=== PATIENT | female | born 1935 | race African-American/Black ===

== ENCOUNTER 2016-02-26 10:39 | Inpatient (IN) | payer MEDICARE ==
[~2016-02-26] VITALS: Ht 162.6 cm; Wt 53.2 kg
[~2016-02-26 10:39] MED LIST: ANAS1TAB PO; CARV12.52 PO; CARV25TA2 PO; CARV6.25 PO; CARV6.252 PO; FURO-68 PO; FURO20TA3 PO; FURO40TA4 PO; GABA-586 PO; HYDR-2868 PO; HYDR-2869 PO; LOSA100T6 PO; NITR0.4T SL; NITR0.4T6 SL; POTA10TA5 PO; SIMV20TA3 PO; WARF2TAB7 PO; WARF5TAB7 PO
--- NOTE | 2016-02-26 10:59 | PHYS DOC ---
Past Medical History Past Medical History: Hypertension, Other Additional Past Medical Histor: heart hx Past Surgical History: Hysterectomy, Other Additional Past Surgical Histo: mastectomy Alcohol Use: None Drug Use: None Adult General Chief Complaint Chief Complaint: SHORTNESS OF BREATH HPI HPI Patient is a 80 year old female who presents with shortness of breath. Patient reports since last night she has had increased shortness of breath that is worse when she is moving around. It is bad enough that after walking short us and she has to rest. She also reports occasional tightness in her chest, over she is not having any of that at this time. She took an aspirin last night for her symptoms, none today. No other acute complaints. Review of Systems Review of Systems Constitutional: Denies fever or chills Eyes: Denies change in visual acuity or eye pain HENT: Denies nasal congestion or sore throat Respiratory: Shortness of breath Cardiovascular: Occasional chest tightness, none at this time GI: Denies abdominal pain, nausea, vomiting, bloody stools or diarrhea : Denies dysuria or hematuria Musculoskeletal: Denies back pain or joint pain Integument: Denies rash or skin lesions Neurologic: Denies headache, focal weakness or sensory changes Current Medications Current Medications Current Medications Medications (Trade) Dose Ordered Sig/Nicole Start Time Stop Time Status Last Admin Dose Admin Aspirin (Children'S Aspirin) 324 mg 1X ONCE 02/26/16 11:00 02/26/16 11:02 DC 02/26/16 11:18 324 MG Allergies Allergies Allergies Coded Allergies Type Severity Reaction Last Updated Verified No Known Drug Allergies 03/10/13 No Physical Exam Physical Exam Constitutional: Well developed, well nourished, no acute distress, non-toxic appearance HENT: Normocephalic, atraumatic, bilateral external ears normal Eyes: EOMI, conjunctiva normal, no discharge Neck: Normal range of motion, no stridor Cardiovascular: Tachycardic, regular rhythm, no murmur Lungs & Thorax: Coarse breath sounds in L upper lung kwong Abdomen: Bowel sounds normal, soft, non-distended, no TTP Skin: Warm, dry, no erythema, no rash Extremities: No obvious deformity, no edema Neurologic: Alert and oriented X 3, no gross deficits noted Current Patient Data Vital Signs Vital Signs Date Time Temp Pulse Resp B/P Pulse Ox O2 Delivery O2 Flow Rate FiO2 02/26/16 11:42 66 18 133/98 99 02/26/16 11:27 Room Air 02/26/16 10:45 97.4 97.4 Lab Values Laboratory Tests Test 02/26/16 11:11 White Blood Count 4.7x10^3/uL (4.0-11.0) Red Blood Count 4.02x10^6/uL (3.50-5.40) Hemoglobin 11.6g/dL (12.0-15.5) L Hematocrit 36.3% (36.0-47.0) Mean Corpuscular Volume 90fL (79-100) Mean Corpuscular Hemoglobin 29pg (25-35) Mean Corpuscular Hemoglobin Concent 32g/dL (31-37) Red Cell Distribution Width 14.6% (11.5-14.5) H Platelet Count 153x10^3/uL (140-400) Neutrophils (%) (Auto) 69% (31-73) Lymphocytes (%) (Auto) 20% (24-48) L Monocytes (%) (Auto) 9% (0-9) Eosinophils (%) (Auto) 1% (0-3) Basophils (%) (Auto) 1% (0-3) Neutrophils # (Auto) 3.3x10^3uL (1.8-7.7) Lymphocytes # (Auto) 0.9x10^3/uL (1.0-4.8) L Monocytes # (Auto) 0.4x10^3/uL (0.0-1.1) Eosinophils # (Auto) 0.1x10^3/uL (0.0-0.7) Basophils # (Auto) 0.0x10^3/uL (0.0-0.2) Prothrombin Time 32.6SEC (11.7-14.0) H Prothrombin Time INR 3.4 (0.8-1.1) H Sodium Level 144mmol/L (136-145) Potassium Level 3.1mmol/L (3.5-5.1) L Chloride Level 108mmol/L (98-107) H Carbon Dioxide Level 26mmol/L (21-32) Anion Gap 10 (6-14) Blood Urea Nitrogen 14mg/dL (7-20) Creatinine 0.9mg/dL (0.6-1.0) Estimated GFR (Cockcroft-Gault) 72.9 Glucose Level 117mg/dL (70-99) H Calcium Level 8.7mg/dL (8.5-10.1) Troponin I Quantitative 0.035ng/mL (0.000-0.055) ZL-Hkh-Q-Type Natriuretic Peptide 4214pg/mL (0-449) H Laboratory Tests 02/26/16 11:11 Laboratory Tests 02/26/16 11:11 EKG EKG EKG (my read): sinus rhythm, rate 69, LAD, single PVC noted, IVCD, nonspecific ST changes, similar to prior 03/06/15 Radiology/Procedures Radiology/Procedures CXR: IMPRESSION: Persistent cardiomegaly and suggested mild pulmonary vascular congestion. Volume loss in the left lower lobe suggesting pleural fluid and atelectasis similar to the previous exam Course & Med Decision Making Course & Med Decision Making Pertinent Labs and Imaging studies reviewed. (See chart for details) Patient is 80-year-old female who presents with cough. Concern for cardiac disease causing symptoms. Will obtain EKG, chest x-ray, labs to evaluate. Dose of aspirin ordered. EKG abnormal but similar to prior 03/06/15. CXR results as above. Labs notable for hypokalemia and elevated BNP. Discussed results with patient. Dose of Lasix and oral potassium replacement ordered. Discussed with Dr. Schumacher, will admit under her care for further evaluation and treatment. Cardiology consult entered. Dragon Disclaimer Dragon Disclaimer This electronic medical record was generated, in whole or in part, using a voice recognition dictation system. Departure Departure Impression: Primary Impression: SOB (shortness of breath) Additional Impression: CHF (congestive heart failure) Disposition: ADMITTED INPATIENT Admitting Physician: Other Condition: STABLE Referrals: CALOS VILLAGOMEZ (PCP) Problem Qualifiers JILLIAN REBOLLAR MD Feb 26, 2016 10:59
[2016-02-26] MEDS ORDERED: ASPIRIN 81 MG TAB.CHEW PO ONE (11:00)
[2016-02-26 11:24] LABS: BASO % 1 % (0-3); EOS % 1 % (0-3); HEMATOCRIT 36.3 % (36.0-47.0); HEMOGLOBIN 11.6 g/dL (12.0-15.5); LYMPH # 0.9 x10^3/uL (1.0-4.8); LYMPH % 20 % (24-48); MEAN CORPUSCULAR HEMOGLOBIN 29 pg (25-35); MEAN CORPUSCULAR HGB CONC 32 g/dL (31-37); MEAN CORPUSCULAR VOLUME 90 fL (79-100); MONO % 9 % (0-9); NEUT % 69 % (31-73); PLATELET COUNT 153 x10^3/uL (140-400); RED BLOOD COUNT 4.02 x10^6/uL (3.50-5.40); RED CELL DISTRIBUTION WIDTH 14.6 % (11.5-14.5); WHITE BLOOD COUNT 4.7 x10^3/uL (4.0-11.0)
[2016-02-26 11:32] LABS: INR 3.4 (0.8-1.1); PROTHROMBIN TIME PATIENT 32.6 SEC (11.7-14.0)
[2016-02-26 11:37] LABS: CALCIUM 8.7 mg/dL (8.5-10.1); CREATININE 0.9 mg/dL (0.6-1.0); GFR 72.9; POTASSIUM 3.1 mmol/L (3.5-5.1)
--- NOTE | 2016-02-26 11:53 | RAD ---
Indication shortness of breath. Chest pain. A single view of the chest was obtained and is compared to an examination almost one year earlier. There is unchanged cardiomegaly. There is some pulmonary vascular congestion similar to the previous exam. There is volume loss in the left lower lobe suggesting atelectasis and pleural fluid. Underlying pneumonia is not entirely excluded. The overall appearance of the chest is not changed substantially relative to the previous exam. IMPRESSION: Persistent cardiomegaly and suggested mild pulmonary vascular congestion. Volume loss in the left lower lobe suggesting pleural fluid and atelectasis similar to the previous exam
[2016-02-26] MEDS ORDERED: ASPI325T4 PO (11:56)
--- NOTE | 2016-02-26 12:00 | EKG ---
[facility] [address] [place] [address] Test Date: 2016-02-26 Test Time: 10:46:43 Pat Name: JUDITH MARIA Department: Room: Gender: F [place] Tier: : 1935 Requested By: JILLIAN REBOLLAR Order Number: [id number] Reading MD: Azucena Hodge Measurements Intervals [place] Rate: 69 P: 90 MT: 160 QRS: -57 QRSD: 138 T: 84 QT: 390 QTc: 419 Interpretive Statements SINUS RHYTHM VENTRICULAR PREMATURE COMPLEX(ES) ABNORMAL LEFT AXIS DEVIATION NON SPECIFIC INTRAVENTRICULAR BLOCK ABNORMAL ECG RI6.01 Compared to ECG 03/06/2015 06:20:51 No significant changes Electronically Signed On 02-27-2016 9:42:48 PRODUCE RUNNER by Azucena Hodge
[2016-02-26] MEDS ORDERED: ACETAMINOPHEN 325 MG TABLET. PO PRN (12:15)
[2016-02-26] MEDS ORDERED: MORPHINE SULFATE 2 MG/ML DISP.SYRIN. IV PRN (12:15)
[2016-02-26] MEDS ORDERED: POTASSIUM CHLORIDE 20 MEQ TABLET.ER. PO ONE ×2 (12:15→16:15)
[2016-02-26] MEDS ORDERED: FUROSEMIDE 20 MG/2 ML VIAL IVP ONE (12:15)
[2016-02-26] MEDS ORDERED: ONDANSETRON PF 4 MG/2 ML VIAL. IV PRN (12:15)
[2016-02-26 15:00] VITALS: BP 170/81
[2016-02-26 19:39] VITALS: BP 151/71
--- NOTE | 2016-02-26 20:58 | CARD ---
APPROVED REPORT EXAM: Two-dimensional and M-mode echocardiogram with Doppler and color Doppler. Other Information Quality : Excellent INDICATION Congestive Heart Failure 2D DIMENSIONS RVDd3.1 (2.9-3.5cm)Left Atrium(2D)4.1 (1.6-4.0cm) IVSd1.0 (0.7-1.1cm)Aortic Root(2D)2.4 (2.0-3.7cm) LVDd5.7 (3.9-5.9cm)LVOT Diameter2.0 (1.8-2.4cm) PWd1.0 (0.7-1.1cm)LVDs4.9 (2.5-4.0cm) FS (%) 14.0 %SV47.1 ml LVEF(%)29.4 (>50%) Aortic Valve AoV Peak Regulo.156.4cm/sAoV VTI31.0cm AO Peak GR.9.8mmHgAO Mean GR.7mmHg AI P 1/2 Fhtv070cm Mitral Valve MV E Edstryhu091.5cm/sMV E Peak Gr.177mmHg MV DECEL [id number] A Saolwxiw57.7cm/s MV [id number]/A Ratio2.1 MVA (PHT)4.54cm2 TDI E/Lateral E'25.0E/Medial E'34.0 Tricuspid Valve TR P. [id number]/sRAP [id number] TR Peak Gr.54aeWcDKGK08slSk LEFT VENTRICLE The left ventricle is normal size. There is normal left ventricular wall thickness. The Ejection Frac tion is 30-35%. There is global hypokinesis of the left ventricle. RIGHT VENTRICLE The right ventricle is normal size. The right ventricular systolic function is normal. ATRIA The left atrium is mildly dilated. The right atrium is mildly dilated. The interatrial septum is inta ct with no evidence for an atrial septal defect or patent foramen ovale as noted on 2-D or Doppler im aging. AORTIC VALVE The aortic valve is mildly thickened but opens well. Doppler and Color Flow revealed moderate aortic regurgitation. There is no significant aortic valvular stenosis. MITRAL VALVE The mitral valve is thickened but opens well. There is no evidence of mitral valve prolapse. There is no mitral valve stenosis. Doppler and Color-flow revealed moderate to severe mitral regurgitation. TRICUSPID VALVE The tricuspid valve is normal in structure and function. Doppler and Color Flow revealed severe tricu spid regurgitation. There is moderate-severe pulmonary hypertension. The PA pressure was estimated at 66 mmHg. There is no tricuspid valve stenosis. PULMONIC VALVE The pulmonary valve is normal in structure and function. Doppler and Color Flow revealed mild to mode rate pulmonic valvular regurgitation. There is no pulmonic valvular stenosis. GREAT VESSELS The aortic root is normal in size. The ascending aorta is normal in size. The IVC is normal in size a nd collapses >50% with inspiration. PERICARDIAL EFFUSION There is no evidence of significant pericardial effusion. Critical Notification Critical Value: No <Conclusion> There is normal left ventricular wall thickness. The Ejection Fraction is 30-35%. There is a Grade II diastolic dysfunction There is no evidence of significant pericardial effusion. There is no significant aortic valvular stenosis. The mitral valve leaflets are thickened. There is a moderate to severe payam regurgitation with an eccentric jet The left atrium is enlarged There is no aortic stenosis and a mild aortic regurgitation There is mild to moderate pulmonic regurgitation The right ventricle is of a normal size with normal systolic function Doppler and Color Flow revealed severe tricuspid regurgitation. There is moderate-severe pulmonary hypertension. The PA pressure was estimated at 66 mmHg. The right atrium is significantly enlarged IMPRESSION 1.No ischemic cardiomyopathy with an ejection fraction of 30-35%. 2. Grade II diastolic dysfunction 3. Severe mitral regurgitation with an eccentric jetr 4.Moderaye pulmonary hypertension.RVSP of 66 mm. Hg. 5. Biatrial enlargement 2.
[2016-02-26] MEDS ORDERED: POTASSIUM CHLORIDE 10 MEQ TABLET.ER. PO ONE (22:30)
[2016-02-26 23:29] VITALS: BP 152/93
[2016-02-26] MEDS: ALBUTEROL SULFATE 2.5 MG/3 ML NEBU. NEB PRN (23:49)
[2016-02-27 02:26] VITALS: BP 155/97
[2016-02-27 04:49] LABS: INR 3.3 (0.8-1.1); PROTHROMBIN TIME PATIENT 31.4 SEC (11.7-14.0)
[2016-02-27 05:12] LABS: CALCIUM 8.5 mg/dL (8.5-10.1); CREATININE 0.8 mg/dL (0.6-1.0); GFR 83.5; MAGNESIUM 2.1 mg/dL (1.8-2.4); POTASSIUM 4.4 mmol/L (3.5-5.1)
[2016-02-27] MEDS: GABAPENTIN 300 MG CAPSULE. PO SCH ×2 (06:09→18:32)
[2016-02-27] MEDS: HYDRALAZINE 50 MG TABLET PO SCH ×2 (06:10→18:33)
[2016-02-27 07:00] VITALS: BP 150/87
[2016-02-27] MEDS: ALBUTEROL SULFATE 2.5 MG/3 ML NEBU. NEB PRN (08:09)
[2016-02-27] MEDS ORDERED: LOSARTAN POTASSIUM 25 MG TABLET. PO SCH (09:00)
[2016-02-27] MEDS ORDERED: POTASSIUM CHLORIDE 10 MEQ TABLET.ER. PO SCH (09:00)
[2016-02-27] MEDS: CARVEDILOL 6.25 MG TABLET PO SCH ×2 (10:13→18:33)
[2016-02-27] MEDS: PANTOPRAZOLE 40 MG TABLET. PO SCH (10:14)
[2016-02-27] MEDS: SPIRONOLACTONE 25 MG TABLET PO SCH ×2 (10:14→15:19)
[2016-02-27] MEDS: FUROSEMIDE 40 MG/4 ML VIAL IVP SCH ×2 (10:15→15:20)
--- NOTE | 2016-02-27 10:37 | PDOC ---
Provider Note Provider Note Consult dictated last night, not yet transcibed MYRA CURTIS MD Feb 27, 2016 10:37
[2016-02-27 10:53] VITALS: BP 136/80
--- NOTE | 2016-02-27 10:59 | CONS ---
DATE OF CONSULTATION: HISTORY OF PRESENT ILLNESS: This is an 80-year-old black female who presented herself early this morning with shortness of breath. She said that she was feeling fairly well when she went to bed. However, she woke up at 2:00 a.m. and could hardly breathe. She sleeps fairly flat in the bed rather than having 2 pillows. She also had a cough. She came into the Emergency Room. In the Emergency Room, she was found to be in mild CHF. She was given IV Lasix and hospitalized. Since IV Lasix, she has been diuresing a lot and does feel better now. I have followed this patient for some years. She does have a cardiomyopathy. Her last EF was evaluated by an echocardiogram and was shown to be 35%. The EF by MPI was also 35%. The EF by catheterization was 20%, but I believe that is falsely low because it is 2 dimensional and not 3 dimensional like the echo and the MPI. On reviewing these modalities, I believe that her EF is truly 30-35%. She does have moderately severe mitral regurgitation, which she has had for a long time. She has been in CHF before. She says that she has been not compliant with her salt intake and just because it tastes better she has been eating more salt recently. She lost her a year or two ago and has been quite depressed. She gives history of hypertension, which has been under control. There is no history of diabetes mellitus. There is no history of myocardial infarction or of a stroke. She has dyslipidemia. She has GERD. She gives history of having had breast cancer. Two years ago, she came in with severe shortness of breath and to our surprise was found to have a pulmonary embolism. She was seen by Dr. Prince who thought that she did not have a hypercoagulable state. She has had intermittent atrial fibrillation in the past and thus she is on chronic anticoagulation. PRESENT MEDICATIONS: 1. PPI. 2. Lasix 40 mg a day. 3. KCl 10 mEq a day. 4. Hydralazine 50 mg twice a day. 5. Simvastatin 20 mg a day. 6. Carvedilol 6.25 mg twice a day. 7. Gabapentin 300 mg twice a day. 8. Losartan. She was given a trial of Entresto, but she could not tolerate it. PHYSICAL EXAMINATION: GENERAL: She was able to lie flat. She was feeling much better. VITAL SIGNS: The heart rate was 80 per minute and she is in a sinus rhythm. There were premature ventricular contractions. The blood pressure was 150/70. She has not had her antihypertensive drugs today. LUNGS: Clear. HEART: The heart sounds are normal. There is a grade 3/6 systolic murmur heard at the apex. There is no S3 or S4. ABDOMEN: Soft. EXTREMITIES: The left thigh was much larger than the right side. She says it has been that way for 10 years and her PCP rightly told her that if it did not bother her, then there was no point in investigating this further. 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 There is no edema of the legs. There is no calf tenderness. Distal pulses are palpable. LABORATORY DATA: A chest x-ray showed cardiomegaly. There was mild increase in pulmonary vascularity. An echocardiogram showed global hypokinesis with ejection fraction of 30-35%. There is a grade 2 diastolic dysfunction. There was kwjcpekb-[id number]-ismxpr mitral regurgitation and interestingly this was an eccentric jet and not a central jet as one would have expected from a poor EF. The left atrium and right atrium are significantly enlarged. There is mild aortic regurgitation. There is moderate pulmonary hypertension with right ventricular systolic pressure of 66 mmHg and moderate pulmonic regurgitation. ASSESSMENT AND PLAN: She has a significantly abnormal echocardiogram. I believe her current exacerbation of congestive heart failure is due to noncompliance with salt intake. She does have a moderately severe mitral regurgitation and because the jet is eccentric one might consider clipping. The mitral valve leaflets are thickened. Also, this patient is 80 years old and somewhat sedentary and since her CHF is normally well controlled with medications, I probably would not consider referring her for mitral valve clipping. She is on the appropriate medications with ARB and beta adriana. She could not tolerate Entresto. We would need to make sure that she weighs herself and takes extra Lasix if necessary. She likes her salt and I probably would advise her to cut down on the salt, but not come down to hard on her. We could probably compromise by simply increasing the dose of Lasix. Thank you for asking me to see her. MYRA CURTIS MD DR: CONCHA/meg JOB#: [id number] / [id number]
[2016-02-27] MEDS ORDERED: NITROGLYCERIN SUBLINGUAL 0.4 MG BOTTLE OF 25. SL PRN (12:45)
[2016-02-27] MEDS ORDERED: GABAPENTIN 300 MG CAPSULE. PO SCH (13:00)
--- NOTE | 2016-02-27 14:25 | PDOC1 ---
History and Physical Date of Admission Date of Admission 02/26/16 Identification/Chief Complaint Chief Complaint sob Problems: Source Source: Chart review, Patient History of Present Illness History of Present Illness HPI HPI Patient is a 80 year old female who presents with shortness of breath yesterday. She has known CHF , last EF was 40%. She said she is compliant with meds , lasix , however, not avoid salt. She denies cough, sputum, fever, chills, leg edema. Sob better with lasix iv overnight. no home o2. Past Medical History Cardiovascular: AFIB Pulmonary: Pulmonary embolus, Pneumonia Heme/Onc: Cancer Past Surgical History Past Surgical History: Mastectomy Social History Smoke: No ALCOHOL: none Drugs: None Current Problem List Problem List Problems Medical Problems: (1) CHF (congestive heart failure) Status: Acute (2) SOB (shortness of breath) Status: Acute Current Medications Current Medications Current Medications Medications (Trade) Dose Ordered Sig/Nicole Start Time Stop Time Status Last Admin Dose Admin Acetaminophen (Tylenol) 650 mg PRN Q4HRS PRN 02/26/16 12:15 02/27/16 12:14 DC Albuterol Sulfate (Ventolin Neb Soln) 2.5 mg PRN Q4HRS PRN 02/26/16 23:30 02/27/16 08:09 2.5 MG Anastrozole (Arimidex) 1 mg DAILY 02/27/16 13:00 Aspirin (Deisy Aspirin) 325 mg DAILY 02/27/16 13:00 Aspirin (Children'S Aspirin) 324 mg 1X ONCE 02/26/16 11:00 02/26/16 11:02 DC 02/26/16 11:18 324 MG Carvedilol (Coreg) 6.25 mg [id number] 02/27/16 08:00 02/27/16 10:13 6.25 MG Furosemide (Lasix) 40 mg BID92 02/27/16 09:00 02/27/16 10:15 40 MG Gabapentin (Neurontin) 300 mg BID 02/27/16 13:00 02/27/16 21:00 Cancel Hydralazine HCl (Apresoline) 50 mg BID 02/27/16 21:00 02/27/16 21:00 DC Losartan Potassium (Cozaar) 100 mg DAILY 02/28/16 09:00 Morphine Sulfate 2 mg PRN Q2HR PRN 02/26/16 12:15 02/27/16 12:14 DC Nitroglycerin (Nitrostat) 0.4 mg PRN Q5MIN PRN 02/27/16 12:45 Ondansetron HCl (Zofran) 4 mg PRN Q8HRS PRN 02/26/16 12:15 02/27/16 12:14 DC Pantoprazole Sodium (Protonix) 40 mg DAILYAC 02/27/16 07:30 02/27/16 10:14 40 MG Potassium Chloride (Klor-Con) 10 meq [id number] 02/28/16 08:00 Simvastatin (Zocor) 20 mg QHS 02/27/16 21:00 02/27/16 21:00 DC Spironolactone (Aldactone) 25 mg BID92 02/27/16 09:00 02/27/16 10:14 25 MG Warfarin Sodium (Coumadin Per Physician) 1 each PRN DAILY PRN 02/27/16 13:00 Warfarin Sodium (Coumadin) 5 mg DAILY16 02/28/16 16:00 Allergies Allergies Allergies Coded Allergies Type Severity Reaction Last Updated Verified No Known Drug Allergies 03/10/13 No ROS Review of System CONSTITUTIONAL: No fever or chills EYES: No recent changes SKIN: No rash or itching CARDIOVASCULAR: No chest pain, syncope, palpitations, or edema RESPIRATORY: No SOB or cough GASTROINTESTINAL: No nausea, vomiting or abdominal pain NEUROLOGICAL: No headaches or weakness ENDOCRINE: No cold or heat intolerance GENITOURINARY: No urgency or frequency of urination MUSCULOSKELETAL: No back pain or joint pain LYMPHATICS: No enlarged lymph nodes PSYCHIATRIC: No anxiety or depression Physical Exam Physical Exam GEN.: No apparent distress. Alert and oriented. HEENT: Head is normocephalic, atraumatic NECK: Supple. LUNGS: Clear to auscultation. HEART: RRR, S1, S2 present. Peripheral pulses intact ABDOMEN: Soft, nontender. Positive bowel sounds. EXTREMITIES: Without any cyanosis. NEUROLOGIC: Normal speech, normal tone PSYCHIATRIC: Normal affect, normal mood. SKIN: No ulcerations Vitals Vitals Vital Signs Date Time Temp Pulse Resp B/P Pulse Ox O2 Delivery O2 Flow Rate FiO2 02/27/16 10:53 98.2 105 16 136/80 98 98.2 02/27/16 08:11 Room Air Labs Labs Laboratory Tests Test 02/26/16 11:11 02/26/16 18:20 02/27/16 00:30 02/27/16 03:52 White Blood Count 4.7x10^3/uL (4.0-11.0) Red Blood Count 4.02x10^6/uL (3.50-5.40) Hemoglobin 11.6g/dL (12.0-15.5) Hematocrit 36.3% (36.0-47.0) Mean Corpuscular Volume 90fL (79-100) Mean Corpuscular Hemoglobin 29pg (25-35) Mean Corpuscular Hemoglobin Concent 32g/dL (31-37) Red Cell Distribution Width 14.6% (11.5-14.5) Platelet Count 153x10^3/uL (140-400) Neutrophils (%) (Auto) 69% (31-73) Lymphocytes (%) (Auto) 20% (24-48) Monocytes (%) (Auto) 9% (0-9) Eosinophils (%) (Auto) 1% (0-3) Basophils (%) (Auto) 1% (0-3) Neutrophils # (Auto) 3.3x10^3uL (1.8-7.7) Lymphocytes # (Auto) 0.9x10^3/uL (1.0-4.8) Monocytes # (Auto) 0.4x10^3/uL (0.0-1.1) Eosinophils # (Auto) 0.1x10^3/uL (0.0-0.7) Basophils # (Auto) 0.0x10^3/uL (0.0-0.2) Prothrombin Time 32.6SEC (11.7-14.0) 31.4SEC (11.7-14.0) Prothromb Time International Ratio 3.4 (0.8-1.1) 3.3 (0.8-1.1) Sodium Level 144mmol/L (136-145) 145mmol/L (136-145) Potassium Level 3.1mmol/L (3.5-5.1) 4.4mmol/L (3.5-5.1) Chloride Level 108mmol/L (98-107) 110mmol/L (98-107) Carbon Dioxide Level 26mmol/L (21-32) 25mmol/L (21-32) Anion Gap 10 (6-14) 10 (6-14) Blood Urea Nitrogen 14mg/dL (7-20) 13mg/dL (7-20) Creatinine 0.9mg/dL (0.6-1.0) 0.8mg/dL (0.6-1.0) Estimated GFR (Cockcroft-Gault) 72.9 83.5 Glucose Level 117mg/dL (70-99) 100mg/dL (70-99) Calcium Level 8.7mg/dL (8.5-10.1) 8.5mg/dL (8.5-10.1) Troponin I Quantitative 0.035ng/mL (0.000-0.055) 0.041ng/mL (0.000-0.055) 0.044ng/mL (0.000-0.055) AL-Kmz-X-Type Natriuretic Peptide 4214pg/mL (0-449) Magnesium Level 2.1mg/dL (1.8-2.4) Laboratory Tests Test 02/26/16 18:20 02/27/16 00:30 02/27/16 03:52 Troponin I Quantitative 0.041ng/mL (0.000-0.055) 0.044ng/mL (0.000-0.055) Prothrombin Time 31.4SEC (11.7-14.0) Prothromb Time International Ratio 3.3 (0.8-1.1) Sodium Level 145mmol/L (136-145) Potassium Level 4.4mmol/L (3.5-5.1) Chloride Level 110mmol/L (98-107) Carbon Dioxide Level 25mmol/L (21-32) Anion Gap 10 (6-14) Blood Urea Nitrogen 13mg/dL (7-20) Creatinine 0.8mg/dL (0.6-1.0) Estimated GFR (Cockcroft-Gault) 83.5 Glucose Level 100mg/dL (70-99) Calcium Level 8.5mg/dL (8.5-10.1) Magnesium Level 2.1mg/dL (1.8-2.4) VTE Prophylaxis Ordered VTE Prophylaxis Devices: No VTE Pharmacological Prophylaxi: No Assessment/Plan Assessment/Plan 1. acute resp failure with CHF 2. acute systolic CHF exacerbation 3. chronic Afib on coumadin 4. h/o PE 5. HTN plan: 1. cont home meds, on coreg 6.25mg bid, if still tachy, may increase 2. fu with card on lasix 40mg iv bid now 3. monitor k, mag 4. cont coumadin, inr daily hope to dc in 1-2 ds KEHINDE NUNEZ MD Feb 27, 2016 14:25
[2016-02-27] MEDS ORDERED: ONDANSETRON PF 4 MG/2 ML VIAL. IV PRN (14:30)
[2016-02-27] MEDS ORDERED: ACETAMINOPHEN 325 MG TABLET. PO PRN (14:30)
[2016-02-27 15:00] VITALS: BP 117/57
[2016-02-27] MEDS: ASPIRIN 325 MG TABLET PO SCH (15:19)
[2016-02-27] MEDS: ANASTROZOLE 1 MG TABLET PO SCH (15:26)
[2016-02-27 20:31] VITALS: BP 109/53
[2016-02-27] MEDS: SIMVASTATIN 20 MG TABLET PO SCH (20:33)
[2016-02-27] MEDS ORDERED: SIMVASTATIN 20 MG TABLET PO SCH (21:00)
[2016-02-27] MEDS ORDERED: HYDRALAZINE 50 MG TABLET PO SCH (21:00)
[2016-02-27 23:23] VITALS: BP 121/71
[2016-02-28 03:22] VITALS: BP 130/64
[2016-02-28 03:42] LABS: BASO % 1 % (0-3); EOS % 2 % (0-3); HEMATOCRIT 36.9 % (36.0-47.0); LYMPH # 1.4 x10^3/uL (1.0-4.8); LYMPH % 26 % (24-48); MEAN CORPUSCULAR HEMOGLOBIN 29 pg (25-35); MEAN CORPUSCULAR HGB CONC 32 g/dL (31-37); MEAN CORPUSCULAR VOLUME 90 fL (79-100); MONO % 9 % (0-9); NEUT % 63 % (31-73); PLATELET COUNT 174 x10^3/uL (140-400); RED BLOOD COUNT 4.08 x10^6/uL (3.50-5.40); RED CELL DISTRIBUTION WIDTH 14.7 % (11.5-14.5); WHITE BLOOD COUNT 5.3 x10^3/uL (4.0-11.0)
[2016-02-28 04:01] LABS: CALCIUM 8.6 mg/dL (8.5-10.1); CREATININE 1.2 mg/dL (0.6-1.0); GFR 52.3; POTASSIUM 4.1 mmol/L (3.5-5.1)
[2016-02-28 04:13] LABS: INR 2.3 (0.8-1.1); PROTHROMBIN TIME PATIENT 23.6 SEC (11.7-14.0)
[2016-02-28] MEDS: HYDRALAZINE 50 MG TABLET PO SCH ×2 (06:08→18:16)
[2016-02-28] MEDS: GABAPENTIN 300 MG CAPSULE. PO SCH ×2 (06:08→18:16)
[2016-02-28 06:28] VITALS: BP 125/74
[2016-02-28] MEDS: PANTOPRAZOLE 40 MG TABLET. PO SCH (08:47)
[2016-02-28] MEDS: CARVEDILOL 6.25 MG TABLET PO SCH ×2 (08:47→16:48)
[2016-02-28] MEDS: SPIRONOLACTONE 25 MG TABLET PO SCH ×2 (08:47→15:18)
[2016-02-28] MEDS: LOSARTAN POTASSIUM 50 MG TABLET. PO SCH (08:47)
[2016-02-28] MEDS: POTASSIUM CHLORIDE 10 MEQ TABLET.ER. PO SCH (08:47)
[2016-02-28] MEDS: ANASTROZOLE 1 MG TABLET PO SCH (08:48)
[2016-02-28] MEDS: ASPIRIN 325 MG TABLET PO SCH (08:48)
[2016-02-28] MEDS: FUROSEMIDE 40 MG/4 ML VIAL IVP SCH (08:49)
[2016-02-28 11:00] VITALS: BP 109/59
--- NOTE | 2016-02-28 13:35 | PDOC ---
PROGRESS NOTES Chief Complaint Chief Complaint 1. acute resp failure with CHF 2. acute systolic CHF exacerbation 3. chronic Afib on coumadin 4. h/o PE 5. HTN 6. WINNIE, vasomotor plan: 1. cont home meds, on coreg 6.25mg bid, if still tachy, may increase 2. fu with card dc lasix 40mg iv bid, resume 40mg po daily from tmr 3. monitor k, mag 4. cont coumadin, inr daily will hold losartan if Cr cont higher hope to dc tmr History of Present Illness History of Present Illness no sob high Cr Vitals Vitals Vital Signs Date Time Temp Pulse Resp B/P Pulse Ox O2 Delivery O2 Flow Rate FiO2 02/28/16 11:00 97.5 74 18 109/59 95 Room Air 97.5 Physical Exam General: Alert, Oriented X3, Cooperative Heart: Regular rate, Normal S1 Lungs: Crackles (right basilar mild) Abdomen: Normal bowel sounds, Soft Extremities: No clubbing, No cyanosis Skin: No rashes Labs LABS Laboratory Tests Test 02/28/16 02:55 White Blood Count 5.3x10^3/uL (4.0-11.0) Red Blood Count 4.08x10^6/uL (3.50-5.40) Hemoglobin 12.0g/dL (12.0-15.5) Hematocrit 36.9% (36.0-47.0) Mean Corpuscular Volume 90fL (79-100) Mean Corpuscular Hemoglobin 29pg (25-35) Mean Corpuscular Hemoglobin Concent 32g/dL (31-37) Red Cell Distribution Width 14.7% (11.5-14.5) Platelet Count 174x10^3/uL (140-400) Neutrophils (%) (Auto) 63% (31-73) Lymphocytes (%) (Auto) 26% (24-48) Monocytes (%) (Auto) 9% (0-9) Eosinophils (%) (Auto) 2% (0-3) Basophils (%) (Auto) 1% (0-3) Neutrophils # (Auto) 3.4x10^3uL (1.8-7.7) Lymphocytes # (Auto) 1.4x10^3/uL (1.0-4.8) Monocytes # (Auto) 0.5x10^3/uL (0.0-1.1) Eosinophils # (Auto) 0.1x10^3/uL (0.0-0.7) Basophils # (Auto) 0.0x10^3/uL (0.0-0.2) Prothrombin Time 23.6SEC (11.7-14.0) Prothromb Time International Ratio 2.3 (0.8-1.1) Sodium Level 147mmol/L (136-145) Potassium Level 4.1mmol/L (3.5-5.1) Chloride Level 111mmol/L (98-107) Carbon Dioxide Level 28mmol/L (21-32) Anion Gap 8 (6-14) Blood Urea Nitrogen 18mg/dL (7-20) Creatinine 1.2mg/dL (0.6-1.0) Estimated GFR (Cockcroft-Gault) 52.3 Glucose Level 93mg/dL (70-99) Calcium Level 8.6mg/dL (8.5-10.1) Magnesium Level 2.1mg/dL (1.8-2.4) Review of Systems Review of Systems no fever, chills, sob, chest pain Assessment and Plan Assessmemt and Plan Problems Medical Problems: (1) CHF (congestive heart failure) Status: Acute (2) SOB (shortness of breath) Status: Acute Problems: Comment Review of Relevant I have reviewed the following items bhanu (where applicable) has been applied. Labs Laboratory Tests Test 02/26/16 18:20 02/27/16 00:30 02/27/16 03:52 02/28/16 02:55 Troponin I Quantitative 0.041ng/mL (0.000-0.055) 0.044ng/mL (0.000-0.055) Prothrombin Time 31.4SEC (11.7-14.0) 23.6SEC (11.7-14.0) Prothromb Time International Ratio 3.3 (0.8-1.1) 2.3 (0.8-1.1) Sodium Level 145mmol/L (136-145) 147mmol/L (136-145) Potassium Level 4.4mmol/L (3.5-5.1) 4.1mmol/L (3.5-5.1) Chloride Level 110mmol/L (98-107) 111mmol/L (98-107) Carbon Dioxide Level 25mmol/L (21-32) 28mmol/L (21-32) Anion Gap 10 (6-14) 8 (6-14) Blood Urea Nitrogen 13mg/dL (7-20) 18mg/dL (7-20) Creatinine 0.8mg/dL (0.6-1.0) 1.2mg/dL (0.6-1.0) Estimated GFR (Cockcroft-Gault) 83.5 52.3 Glucose Level 100mg/dL (70-99) 93mg/dL (70-99) Calcium Level 8.5mg/dL (8.5-10.1) 8.6mg/dL (8.5-10.1) Magnesium Level 2.1mg/dL (1.8-2.4) 2.1mg/dL (1.8-2.4) White Blood Count 5.3x10^3/uL (4.0-11.0) Red Blood Count 4.08x10^6/uL (3.50-5.40) Hemoglobin 12.0g/dL (12.0-15.5) Hematocrit 36.9% (36.0-47.0) Mean Corpuscular Volume 90fL (79-100) Mean Corpuscular Hemoglobin 29pg (25-35) Mean Corpuscular Hemoglobin Concent 32g/dL (31-37) Red Cell Distribution Width 14.7% (11.5-14.5) Platelet Count 174x10^3/uL (140-400) Neutrophils (%) (Auto) 63% (31-73) Lymphocytes (%) (Auto) 26% (24-48) Monocytes (%) (Auto) 9% (0-9) Eosinophils (%) (Auto) 2% (0-3) Basophils (%) (Auto) 1% (0-3) Neutrophils # (Auto) 3.4x10^3uL (1.8-7.7) Lymphocytes # (Auto) 1.4x10^3/uL (1.0-4.8) Monocytes # (Auto) 0.5x10^3/uL (0.0-1.1) Eosinophils # (Auto) 0.1x10^3/uL (0.0-0.7) Basophils # (Auto) 0.0x10^3/uL (0.0-0.2) Laboratory Tests Test 02/28/16 02:55 White Blood Count 5.3x10^3/uL (4.0-11.0) Red Blood Count 4.08x10^6/uL (3.50-5.40) Hemoglobin 12.0g/dL (12.0-15.5) Hematocrit 36.9% (36.0-47.0) Mean Corpuscular Volume 90fL (79-100) Mean Corpuscular Hemoglobin 29pg (25-35) Mean Corpuscular Hemoglobin Concent 32g/dL (31-37) Red Cell Distribution Width 14.7% (11.5-14.5) Platelet Count 174x10^3/uL (140-400) Neutrophils (%) (Auto) 63% (31-73) Lymphocytes (%) (Auto) 26% (24-48) Monocytes (%) (Auto) 9% (0-9) Eosinophils (%) (Auto) 2% (0-3) Basophils (%) (Auto) 1% (0-3) Neutrophils # (Auto) 3.4x10^3uL (1.8-7.7) Lymphocytes # (Auto) 1.4x10^3/uL (1.0-4.8) Monocytes # (Auto) 0.5x10^3/uL (0.0-1.1) Eosinophils # (Auto) 0.1x10^3/uL (0.0-0.7) Basophils # (Auto) 0.0x10^3/uL (0.0-0.2) Prothrombin Time 23.6SEC (11.7-14.0) Prothromb Time International Ratio 2.3 (0.8-1.1) Sodium Level 147mmol/L (136-145) Potassium Level 4.1mmol/L (3.5-5.1) Chloride Level 111mmol/L (98-107) Carbon Dioxide Level 28mmol/L (21-32) Anion Gap 8 (6-14) Blood Urea Nitrogen 18mg/dL (7-20) Creatinine 1.2mg/dL (0.6-1.0) Estimated GFR (Cockcroft-Gault) 52.3 Glucose Level 93mg/dL (70-99) Calcium Level 8.6mg/dL (8.5-10.1) Magnesium Level 2.1mg/dL (1.8-2.4) Medications Current Medications Aspirin (Children'S Aspirin) 324 mg 1X ONCE PO Last administered on 02/26/16 11:18; Start 02/26/16 at 11:00; Stop 02/26/16 at 11:02; Status DC Furosemide (Lasix) 20 mg 1X ONCE IVP Last administered on 02/26/16 13:08; Start 02/26/16 at 12:15; Stop 02/26/16 at 12:17; Status DC Ondansetron HCl (Zofran) 4 mg PRN Q8HRS PRN IV NAUSEA/VOMITING; Start 02/26/16 at 12:15; Stop 02/27/16 at 12:14; Status DC Morphine Sulfate 2 mg PRN Q2HR PRN IV PAIN; Start 02/26/16 at 12:15; Stop 02/26 at 12:14; Status DC Acetaminophen (Tylenol) 650 mg PRN Q4HRS PRN PO FEVER; Start 02/26/16 at 12:15 ; Stop 02/27/16 at 12:14; Status DC Potassium Chloride (Klor-Con) 40 meq 1X ONCE PO Last administered on 13:08; Start 02/26/16 at 12:15; Stop 02/26/16 at 12:17; Status DC Potassium Chloride (Klor-Con) 40 meq 1X ONCE PO Last administered on 16:26; Start 02/26/16 at 16:15; Stop 02/26/16 at 16:16; Status DC Pantoprazole Sodium (Protonix) 40 mg DAILYAC PO Last administered on 02/28/16 08:47; Start 02/27/16 at 07:30 Furosemide (Lasix) 40 mg [id number] IVP Last administered on 02/28/16 08:49; Start 02/27/16 at 09:00; Stop 02/28/16 at 11:18; Status DC Potassium Chloride (Klor-Con) 10 meq BID92 PO Last administered on 02/27/16 10 :13; Start 02/27/16 at 09:00; Stop 02/27/16 at 12:46; Status DC Potassium Chloride (Klor-Con) 30 meq 1X ONCE PO Last administered on 23:36; Start 02/26/16 at 22:30; Stop 02/26/16 at 22:31; Status DC Spironolactone (Aldactone) 25 mg [id number] PO Last administered on 02/28/16 08:47 ; Start 02/27/16 at 09:00 Hydralazine HCl (Apresoline) 50 mg BID66 PO Last administered on 02/28/16 06: 08; Start 02/27/16 at 06:00 Simvastatin (Zocor) 20 mg HS PO Last administered on 02/27/16 20:33; Start at 21:00 Carvedilol (Coreg) 6.25 mg BIDWMEALS PO Last administered on 02/28/16 08:47; Start 02/27/16 at 08:00 Gabapentin (Neurontin) 300 mg BID76 PO Last administered on 02/28/16 06:08; Start 02/27/16 at 07:00 Losartan Potassium (Cozaar) 25 mg DAILY PO Last administered on 02/27/16 10:15 ; Start 02/27/16 at 09:00; Stop 02/27/16 at 12:45; Status DC Albuterol Sulfate (Ventolin Neb Soln) 2.5 mg PRN Q4HRS PRN NEB SHORTNESS OF BREATH Last administered on 02/27/16 08:09; Start 02/26/16 at 23:30 Anastrozole (Arimidex) 1 mg DAILY PO Last administered on 02/28/16 08:48; Start 02/27/16 at 13:00 Aspirin (Deisy Aspirin) 325 mg DAILY PO Last administered on 02/28/16 08:48; Start 02/27/16 at 13:00 Gabapentin (Neurontin) 300 mg BID PO ; Start 02/27/16 at 13:00; Stop 02/27/16 at 21:00; Status Cancel Hydralazine HCl (Apresoline) 50 mg BID PO ; Start 02/27/16 at 21:00; Stop at 21:00; Status DC Nitroglycerin (Nitrostat) 0.4 mg PRN Q5MIN PRN SL CHEST PAIN; Start 02/27/16 at 12:45 Simvastatin (Zocor) 20 mg QHS PO ; Start 02/27/16 at 21:00; Stop 02/27/16 at 21: 00; Status DC Warfarin Sodium (Coumadin) 5 mg DAILY16 PO ; Start 02/28/16 at 16:00 Losartan Potassium (Cozaar) 100 mg DAILY PO Last administered on 02/28/16 08: 47; Start 02/28/16 at 09:00 Potassium Chloride (Klor-Con) 10 meq [id number] PO Last administered on 08:47; Start 02/28/16 at 08:00 Warfarin Sodium (Coumadin Per Physician) 1 each PRN DAILY PRN MC SEE COMMENTS; Start 02/27/16 at 13:00 Acetaminophen (Tylenol) 650 mg PRN Q6HRS PRN PO MILD PAIN / TEMP Last administered on 02/27/16 15:18; Start 02/27/16 at 14:30 Ondansetron HCl (Zofran) 4 mg PRN Q6HRS PRN IV NAUSEA/VOMITING; Start 02/27/16 at 14:30 Furosemide (Lasix) 40 mg DAILY PO ; Start 02/29/16 at 09:00 Active Scripts Active Lasix (Furosemide) 40 Mg Tablet 1 Tab PO DAILY Reported Aspirin 325 Mg Tablet 1 Tab PO DAILY Gabapentin 300 Mg Capsule 1 Cap PO BID Coreg (Carvedilol) 6.25 Mg Tablet 1 Tab PO BID Warfarin Sodium 5 Mg Tablet 7.5 Mg PO QSASU Warfarin Sodium 5 Mg Tablet 5 Mg PO QMOTUWETHFR Hydralazine Hcl 50 Mg Tablet 50 Mg PO BID NITROGLYCERIN SubLingual (Nitroglycerin) 0.4 Mg Tab.subl 0.4 Mg SL PRN Q5MIN PRN Anastrozole 1 Mg Tablet 1 Mg PO DAILY Losartan Potassium 100 Mg Tablet 100 Mg PO DAILY Simvastatin 20 Mg Tablet 20 Mg PO QHS Klor-Con 10 (Potassium Chloride) 10 Meq Tablet.er 10 Meq PO DAILY Vitals/I & O Vital Sign - Last 24 Hours 02/27/16 02/27/16 02/27/16 02/27/16 15:00 18:33 18:33 20:15 Temp 98.2 98.2 Pulse 71 71 71 Resp 18 B/P 117/57 117/57 117/57 Pulse Ox 95 O2 Delivery Room Air Room Air 02/27/16 02/27/16 02/28/16 02/28/16 20:31 23:23 03:22 06:08 Temp 98.2 98.1 98.2 98.2 98.1 98.2 Pulse 65 73 74 67 Resp 16 20 20 B/P 109/53 121/71 130/64 125/74 Pulse Ox 94 97 97 O2 Delivery Room Air Room Air Room Air 02/28/16 02/28/16 02/28/16 02/28/16 06:28 08:00 08:47 08:47 Temp 97.9 97.9 Pulse 67 67 67 Resp 16 B/P 125/74 125/74 125/74 Pulse Ox 98 O2 Delivery Room Air Room Air 02/28/16 11:00 Temp 97.5 97.5 Pulse 74 Resp 18 B/P 109/59 Pulse Ox 95 O2 Delivery Room Air Intake and Output 02/27/16 02/27/16 02/28/16 15:00 23:00 07:00 Intake Total 118 ml 250 ml 0 ml Output Total 500 ml 1000 ml Balance 118 ml -250 ml -1000 ml KEHINDE NUNEZ MD Feb 28, 2016 13:34
[2016-02-28 15:00] VITALS: BP 104/57
[2016-02-28] MEDS ORDERED: WARFARIN 5 MG TABLET. PO SCH (16:00)
[2016-02-28 19:33] VITALS: BP 114/57
[2016-02-28] MEDS: SIMVASTATIN 20 MG TABLET PO SCH (20:39)
[2016-02-28 22:30] VITALS: BP 117/75
[2016-02-29 02:37] VITALS: BP 120/74
[2016-02-29 02:38] VITALS: BP 120/74
[2016-02-29] MEDS: HYDRALAZINE 50 MG TABLET PO SCH (06:08)
[2016-02-29 06:26] LABS: CALCIUM 8.7 mg/dL (8.5-10.1); CREATININE 1.1 mg/dL (0.6-1.0); GFR 57.8; POTASSIUM 3.8 mmol/L (3.5-5.1)
[2016-02-29 06:35] LABS: INR 1.6 (0.8-1.1); PROTHROMBIN TIME PATIENT 18.5 SEC (11.7-14.0)
[2016-02-29 07:00] VITALS: BP 123/59
[2016-02-29] MEDS ORDERED: FUROSEMIDE 40 MG TABLET PO SCH (09:00)
[2016-02-29] MEDS: ASPIRIN 325 MG TABLET PO SCH (09:31)
[2016-02-29] MEDS: SPIRONOLACTONE 25 MG TABLET PO SCH ×2 (09:31→14:34)
[2016-02-29] MEDS: POTASSIUM CHLORIDE 10 MEQ TABLET.ER. PO SCH (09:32)
[2016-02-29] MEDS: GABAPENTIN 300 MG CAPSULE. PO SCH (09:33)
[2016-02-29] MEDS: LOSARTAN POTASSIUM 50 MG TABLET. PO SCH (09:33)
[2016-02-29] MEDS: CARVEDILOL 6.25 MG TABLET PO SCH (09:33)
[2016-02-29] MEDS: PANTOPRAZOLE 40 MG TABLET. PO SCH (09:33)
[2016-02-29] MEDS: ANASTROZOLE 1 MG TABLET PO SCH (09:37)
[2016-02-29] MEDS ORDERED: SPIR25TA PO (11:19)
[2016-02-29 11:38] VITALS: BP 122/71
--- NOTE | 2016-02-29 12:16 | PDOC3 ---
Discharge Summary [facility] Date of Admission: Feb 26, 2016 Discharge Date: Feb 29, 2016 Admitting Diagnosis 1. acute resp failure with CHF 2. acute systolic CHF exacerbation 3. chronic Afib on coumadin 4. h/o PE 5. HTN 6. WINNIE, vasomotor Problems: Final Diagnosis Problems Medical Problems: (1) CHF (congestive heart failure) Status: Acute (2) SOB (shortness of breath) Status: Acute CONSULTS premsin Brief Hospital Course Patient is a 80 year old female who presents with shortness of breath yesterday. She has known CHF , last EF was 40%. She said she is compliant with meds , lasix , however, not avoid salt. She denies cough, sputum, fever, chills, leg edema. Sob better with lasix iv overnight. no home o2. Echo showed EF 30-35%. pt also takes a lot of salt at home. Pt improves with lasix 40mg iv bid, no sob for 2 ds, however, Cr slightly higher from 0.8 to 1.2, today 1.1. dc home with home lasix dose 40mg daily, aldactone added as per card. dc time 35min General: Alert, Oriented X3, Cooperative Heart: Regular rate, Normal S1 Lungs: Crackles (right basilar mild) Abdomen: Normal bowel sounds, Soft Extremities: No clubbing, No cyanosis Skin: No rashes Problems: Disposition home CONDITION AT DISCHARGE: Improved Diet cardiac Scheduled Anastrozole (Anastrozole) 1 MG PO DAILY (Reported) Aspirin (Aspirin) 1 TAB PO DAILY (Reported) Carvedilol (Coreg) 1 TAB PO BID (Reported) Furosemide (Lasix) 1 TAB PO DAILY Gabapentin (Gabapentin) 1 CAP PO BID (Reported) Hydralazine Hcl (Hydralazine Hcl) 50 MG PO BID (Reported) Losartan Potassium (Losartan Potassium) 100 MG PO DAILY (Reported) Potassium Chloride (Klor-Con 10) 10 MEQ PO DAILY (Reported) Simvastatin (Simvastatin) 20 MG PO QHS (Reported) Spironolactone (Aldactone) 25 MG PO [id number] Warfarin Sodium (Warfarin Sodium) 5 MG PO QMOTUWETHFR (Reported) Warfarin Sodium (Warfarin Sodium) 7.5 MG PO QSASU (Reported) Scheduled PRN Nitroglycerin (NITROGLYCERIN SubLingual) 0.4 MG SL PRN Q5MIN PRN PRN CHEST PAIN (Reported) Follow Up pcp in 2 weeks KEHINDE NUNEZ MD Feb 29, 2016 12:16
== END 2016-02-29 14:30 | disposition home or self-care (01) | DRG 291 ==
LOC: ER 10:39 → 6 SOUTH 12:09
PROVIDERS: ADMIT Internal Medicine Hematology & Oncology; ATTEND Internal Medicine Hematology & Oncology
DX: I50.23 Acute on chronic systolic (congestive) heart failure (principal); N17.0 Acute kidney failure with tubular necrosis; J96.00 Acute respiratory failure, unspecified whether with hypoxia or hypercapnia; I42.9 Cardiomyopathy, unspecified; I11.0 Hypertensive heart disease with heart failure; E78.5 Hyperlipidemia, unspecified; E87.6 Hypokalemia; I34.0 Nonrheumatic mitral (valve) insufficiency; K21.9 Gastro-esophageal reflux disease without esophagitis; I48.91 Unspecified atrial fibrillation; Z85.3 Personal history of malignant neoplasm of breast; Z90.710 Acquired absence of both cervix and uterus; Z91.19 Patient's noncompliance with other medical treatment and regimen; Z90.10 Acquired absence of unspecified breast and nipple; Z86.711 Personal history of pulmonary embolism; Z79.01 Long term (current) use of anticoagulants; Z79.82 Long term (current) use of aspirin; Z79.899 Other long term (current) drug therapy; Z98.890 Other specified postprocedural states; Z87.01 Personal history of pneumonia (recurrent)
CPT/HCPCS: 36415; 71010; 80048; 83735; 83880; 84484; 85027; 85610; 93005; 93306; 94250; 94640; 96374; J1940; 99285-25

== ENCOUNTER 2016-09-14 06:43 | Inpatient (IN) | payer MEDICARE ==
[~2016-09-14] VITALS: Ht 162.6 cm; Wt 53.3 kg
[~2016-09-14 06:43] MED LIST changes: +ASPI325T8 PO; +NITR0.4T22 SL; -NITR0.4T6 SL; +SPIR25TA PO
[2016-09-14] MEDS ORDERED: ASPIRIN CHEWABLE 81 MG TABLET. PO ONE (07:15)
[2016-09-14] MEDS ORDERED: 0.9 % SODIUM CHLORIDE 10 ML DISP.SYRIN. IV PRN (07:15)
--- NOTE | 2016-09-14 07:15 | PHYS DOC ---
Past Medical History Past Medical History: Cancer, CHF, High Cholesterol, Hypertension, Other Additional Past Medical Histor: heart hx Past Surgical History: Hysterectomy, Other Additional Past Surgical Histo: R. mastectomy Alcohol Use: None Drug Use: None Adult General Chief Complaint Chief Complaint: SHORTNESS OF BREATH HPI HPI Patient is a pleasant 80-year-old female who lives with her son and grandson with a history of hypertension, hyperlipidemia, questionable congestive heart failure who presents with one-week history of progressive shortness of breath with orthopnea exercise dyspnea and fatigue. Patient is noted over the last week with all sleeping patient can sleep flat for a short period of time. Become short of breath. Then she has to sit up which relieves the symptoms. She denies any change in medication regiment. She denies any recent swelling her lower legs, she denies any changes in her diet. She's been told by her cigar packer and shader that she might be 7 from congestive heart failure. She denies any cough, wheezing, fevers, chills, runny nose, URI symptoms or other complaints. She denies any chest pain with this shortness of breath. She denies any abdominal pain diarrhea or sick contacts. Patient also denies any recent travel outside the country, recent antibiotic use. Patient does admit that she has a history of cancer and his significant treatment of right radical mastectomy. Differential diagnosis: Acute myocardial ischemia, heart failure, cardiac tamponade, bronchospasm, pulmonary embolism, pneumothorax, pulmonary infection i.e. bronchitis or pneumonia, upper airway obstruction, anaphylaxis, aspiration , psychogenic, pulmonary contusion, toxidrome, pneumomediastinum, noncardiogenic pulmonary edema or ARDS, COPD, tuberculosis, cystic fibrosis, asthma, high altitude pulmonary edema, valvular dysfunction, cardiac dysrhythmia , stroke, neuromuscular diseases like myasthenia gravis gravis, ALS, Guillain- Merida syndrome, metabolic acidosis to include diabetic ketoacidosis, sepsis, and obstructive disorders like massive obesity Plan at this time is to get a chest x-ray, EKG, appropriate cardiac blood work, TSH, UA, CMP, troponin, I feel he that her risk for PE is significant enough that we will not get a d-dimer but actually right to the CT angios the chest. Review of Systems Review of Systems Constitutional: Denies fever or chills [] Eyes: Denies change in visual acuity, redness, or eye pain [] HENT: Denies nasal congestion or sore throat [] Respiratory: Denies cough does complain of chronic shortness of breath on exertion and when she sleeps at night. Cardiovascular: No additional information not addressed in HPI [] GI: Denies abdominal pain, nausea, vomiting, bloody stools or diarrhea [] : Denies dysuria or hematuria [] Musculoskeletal: Denies back pain or joint pain [] Integument: Denies rash or skin lesions [] Neurologic: Denies headache, does complain of generalized weakness without sensory or focal neurologic deficit. Endocrine: Denies polyuria or polydipsia [] Current Medications Current Medications Current Medications Medications (Trade) Dose Ordered Sig/Nicole Start Time Stop Time Status Last Admin Dose Admin Acetaminophen (Tylenol) 650 mg PRN Q4HRS PRN 09/14/16 09:30 09/15/16 09:29 Aspirin (Children'S Aspirin) 324 mg 1X ONCE 09/14/16 07:15 09/14/16 07:16 DC 09/14/16 07:45 324 MG Furosemide (Lasix) 40 mg 1X ONCE 09/14/16 09:15 09/14/16 09:16 DC 09/14/16 09:19 40 MG Info (Do NOT chart on this entry -- for MONITORING) 1 each PRN DAILY PRN 09/14/16 07:45 09/16/16 07:44 Iohexol (Omnipaque 300 Mg/ml) 75 ml 1X ONCE 09/14/16 07:45 09/14/16 07:46 DC 09/14/16 08:21 75 ML Nitroglycerin (Nitrostat) 0.4 mg PRN Q5MIN PRN 09/14/16 09:15 Ondansetron HCl (Zofran) 4 mg PRN Q8HRS PRN 09/14/16 09:30 09/15/16 09:29 Sodium Chloride (Normal Saline Flush) 10 ml QSHIFT PRN 09/14/16 07:15 Allergies Allergies Allergies Coded Allergies Type Severity Reaction Last Updated Verified No Known Drug Allergies 03/10/13 No Physical Exam Physical Exam Patient noted to be hypertensive and tachycardic with no hypoxia and tachypnea. No fever. Constitutional: Well developed, well nourished, no acute distress, non-toxic appearance. [] HENT: Normocephalic, atraumatic, bilateral external ears normal, dry mucous membranes no oral exudates, nose normal. [] Eyes: PERRLA, EOMI, conjunctiva normal, no discharge. [] Neck: Normal range of motion, no tenderness, supple, no stridor. [] Cardiovascular: Tachycardia with no murmurs gallops or rubs. Lungs & Thorax: Sensory decreased at the bases with mild rhonchi. Mild crackles Abdomen: Bowel sounds normal, soft, no tenderness, no masses, no pulsatile masses. [] Skin: Warm, dry, no erythema, no rash. [] Back: No tenderness, no CVA tenderness. [] Extremities: No tenderness, no cyanosis, no clubbing, ROM intact, no edema. [] Neurologic: Alert and oriented X 3, normal motor function, normal sensory function, no focal deficits noted. [] Psychologic: Affect normal, judgement normal, mood normal. [] Current Patient Data Vital Signs Vital Signs Date Time Temp Pulse Resp B/P (MAP) Pulse Ox O2 Delivery O2 Flow Rate FiO2 09/14/16 08:55 110 20 149/96 (113) 95 Room Air 09/14/16 06:58 97.7 97.7 Lab Values Laboratory Tests Test 09/14/16 05:52 09/14/16 07:02 09/14/16 07:10 09/14/16 07:25 Urine Collection Type Unknown Urine Color Yellow Urine Clarity Clear Urine pH 7.0 Urine Specific [place] >=1.030 Urine Protein 30 mg/dL (NEG-TRACE) Urine Glucose (UA) Negative mg/dL (NEG) Urine Ketones (Stick) Negative mg/dL (NEG) Urine Blood Small (NEG) Urine Nitrite Negative (NEG) Urine Bilirubin Negative (NEG) Urine Urobilinogen Dipstick 1.0 mg/dL (0.2 mg/dL) Urine Leukocyte Esterase Negative (NEG) Urine RBC 6-10 /HPF (0-2) Urine WBC 0 /HPF (0-4) Urine Squamous Epithelial Cells Few /LPF Urine Bacteria 0 /HPF (0-FEW) Urine Mucus Slight /LPF O2 Saturation 92 % (92-99) Arterial Blood pH 7.45 (7.35-7.45) Arterial Blood pCO2 at Patient Temp 36 mmHg (35-46) Arterial Blood pO2 at Patient Temp 65 mmHg (65-108) Arterial Blood HCO3 25 mmol/L (21-28) Arterial Blood Base Excess 1 mmol/L (-3-3) Oxyhemoglobin 91.8 % Methemoglobin 0.2 % (0.0-1.9) Carbon Monoxide, Quantitative 0.3 % (0.0-1.9) FiO2 21.0 White Blood Count 5.1 x10^3/uL (4.0-11.0) Red Blood Count 4.32 x10^6/uL (3.50-5.40) Hemoglobin 12.8 g/dL (12.0-15.5) Hematocrit 39.6 % (36.0-47.0) Mean Corpuscular Volume 92 fL (79-100) Mean Corpuscular Hemoglobin 30 pg (25-35) Mean Corpuscular Hemoglobin Concent 32 g/dL (31-37) Red Cell Distribution Width 14.4 % (11.5-14.5) Platelet Count 167 x10^3/uL (140-400) Neutrophils (%) (Auto) 65 % (31-73) Lymphocytes (%) (Auto) 24 % (24-48) Monocytes (%) (Auto) 8 % (0-9) Eosinophils (%) (Auto) 2 % (0-3) Basophils (%) (Auto) 1 % (0-3) Neutrophils # (Auto) 3.4 x10^3uL (1.8-7.7) Lymphocytes # (Auto) 1.2 x10^3/uL (1.0-4.8) Monocytes # (Auto) 0.4 x10^3/uL (0.0-1.1) Eosinophils # (Auto) 0.1 x10^3/uL (0.0-0.7) Basophils # (Auto) 0.0 x10^3/uL (0.0-0.2) Sodium Level 145 mmol/L (136-145) Potassium Level 3.1 mmol/L (3.5-5.1) L Chloride Level 110 mmol/L (98-107) H Carbon Dioxide Level 25 mmol/L (21-32) Anion Gap 10 (6-14) Blood Urea Nitrogen 15 mg/dL (7-20) Creatinine 0.9 mg/dL (0.6-1.0) Estimated GFR (Cockcroft-Gault) 72.9 Glucose Level 114 mg/dL (70-99) H Calcium Level 8.7 mg/dL (8.5-10.1) Magnesium Level 2.1 mg/dL (1.8-2.4) Total Bilirubin 1.1 mg/dL (0.2-1.0) H Direct Bilirubin 0.3 mg/dL (0.0-0.2) H Aspartate Amino Transferase (AST) 18 U/L (15-37) Alanine Aminotransferase (ALT) 28 U/L (14-59) Alkaline Phosphatase 56 U/L (46-116) Creatine Kinase 67 U/L (26-192) Creatine Kinase MB (Mass) 0.6 ng/mL (0.0-3.6) Creatine Kinase MB Relative Index % (0-4) Troponin I Quantitative 0.043 ng/mL (0.000-0.055) GP-Pkw-E-Type Natriuretic Peptide 9063 pg/mL (0-449) H Total Protein 6.3 g/dL (6.4-8.2) L Albumin 3.3 g/dL (3.4-5.0) L Lipase 161 U/L (73-393) Thyroid Stimulating Hormone (TSH) 2.356 uIU/mL (0.358-3.74) Laboratory Tests 09/14/16 07:10 Laboratory Tests 09/14/16 07:25 EKG EKG [] EKG timed 6:51 AM demonstrates sinus tachycardia with heart rate of 121 there is normal SC interval of 88 and abnormal QRS width of 140 likely intraventricular conduction delay and a QTC of 486. This is an abnormal EKG with left axis deviation question will intraventricular block EKG read by Dr. Benitez Radiology/Procedures Radiology/Procedures [] IMAGING REPORT Signed PATIENT: JUDITH MARIA ACCOUNT: [id number] : 1935 LOCATION: ER AGE: 80 SEX: F EXAM STATUS: REG ER ORD. PHYSICIAN: KARAN BENITEZ MD REASON: shortness of breath PROCEDURE: PORTABLE CHEST 1V Indication shortness of breath. A single view of the chest was obtained and is compared to an examination February 26, 2016. There is unchanged cardiomegaly. There is perhaps very mild pulmonary vascular congestion. Gross congestive heart failure is not seen. There may be a tiny left pleural effusion. No consolidated pneumonia is seen. IMPRESSION: Unchanged cardiomegaly. Suspect mild pulmonary vascular congestion. Probable tiny left pleural effusion DICTATED and SIGNED BY: CHAYITO CORRIGAN MD DATE: 09/14/16 0752 CC: KARAN BENITEZ MD; CALOS LEVY W ~ [address] [place] [address] IMAGING REPORT Signed PATIENT: JUDITH MARIA ACCOUNT: [id number] : 1935 LOCATION: ER AGE: 80 SEX: F EXAM STATUS: REG ER ORD. PHYSICIAN: KARAN BENITEZ MD REASON: shortness of breath with hx of CA PROCEDURE: CT ANGIOGRAPHY CHEST Indication shortness of breath and cough. Axial images through the chest were obtained. The examination was tailored for the detection of pulmonary embolus. MIP images were generated and reviewed. 75 cc of Omnipaque 300 was administered. Note is made of a previous examination 01/24/2015. Imaging through the upper abdomen shows no acute finding. There is a minute right renal calculus. There is a cyst at the cephalad aspect of the right kidney. There is generalized cardiomegaly. There is moderate coronary artery calcification. An acute or significant finding is not seen associated with the thoracic aorta. There are small bilateral pleural effusions. There is no significant hilar or mediastinal adenopathy. The study is negative for pulmonary embolus. There are some underlying emphysematous changes. There is a nonsolid parenchymal opacity in the left upper lobe. This is more conspicuous than on the previous exam. The etiology is unclear. An inflammatory focus is not excluded. A neoplastic process such as adenocarcinoma is not entirely excluded. Follow-up imaging should be considered. IMPRESSION: Negative study for pulmonary embolus. Underlying emphysematous changes. Small pleural effusions. Nonsolid parenchymal opacity in the left upper lobe more conspicuous than on the previous exam. The etiology is unclear. While this could represent an inflammatory focus neoplastic disease is not excluded. PQRS Compliance Statement: One or more of the following individualized dose reduction techniques were utilized for this examination: 1. Automated exposure control 2. Adjustment of the mA and/or kV according to patient size 3. Use of iterative reconstruction technique Course & Med Decision Making Course & Med Decision Making Pertinent Labs and Imaging studies reviewed. (See chart for details) She presents with shortness of breath, Differential diagnosis: Acute myocardial ischemia, heart failure, cardiac tamponade, bronchospasm, pulmonary embolism, pneumothorax, pulmonary infection i.e. bronchitis or pneumonia, upper airway obstruction, anaphylaxis, aspiration, psychogenic, pulmonary contusion, toxidrome, pneumomediastinum, noncardiogenic pulmonary edema or ARDS, COPD, tuberculosis, cystic fibrosis, asthma, high altitude pulmonary edema, valvular dysfunction, cardiac dysrhythmia, stroke, neuromuscular diseases like myasthenia gravis gravis, ALS, Guillain-Merida syndrome, metabolic acidosis to include diabetic ketoacidosis, sepsis, and obstructive disorders like massive obesity and upon arrival. Although patient's lung exam was not all that clear had some basic rhonchi no evidence of peripheral edema some mild JVD patient is likely and mild CHF. Course her stay her ABG done at 0 7:58 AM demonstrates a pH is 7.45 PCO2 of 36 PO2 of 64 she's on room air her saturation rate was 92% on room air. A she does not neck and a respiratory distress or troponin is negative at this time. Time is now 8:35 AM. Time 8:35 AM Patient tells me that their symptoms given during CC are improved. We reviewed labs and radiology reports with patient and she will need to remove some of his extremities fluid from her system there is causing her shortness of breath. I do not believe she is of any cardiac ischemia or worsening renal failure causing hypertension. She likely needs a repeat echocardiogram and serial enzymes to make sure she did not having any cardiac ischemia causing worsening symptoms. Her primary care doctor is Dr. Calos Levy Electronic Transaction Implementer note: Paged initially at 0 900 AM Electronic Transaction Implementer called at of the service Dr. Mascorro Consult called back at 9:36 AM Discussed the case I presented and they agreed with admission. Time of acceptance 936 AM. 9:30 AM Patient tells me that their symptoms given during CC are improved. We reviewed labs and radiology reports with patient my concerns of this mass found in her left upper lung. All those is no evidence of pulmonary embolus she does have emphysema and congestive heart failure. She will be admitted to the hospital to remove some of the fluid from her system and able to assist her in her daily activities of living. I will consult cardiology and admitted to internal medicine for this purpose. I would advise neurology evaluation for this mass and continued monitoring of it to ensure that is not a recurrence of her prior breast cancer. Dragon Disclaimer Dragon Disclaimer This electronic medical record was generated, in whole or in part, using a voice recognition dictation system. Departure Departure Impression: Primary Impression: CHF (congestive heart failure) Additional Impression: SOB (shortness of breath) Disposition: 09 ADMITTED INPATIENT Admitting Physician: Flaquita Mascorro Condition: GUARDED Referrals: CALOS LEVY (PCP) Problem Qualifiers KARAN BENITEZ MD Sep 14, 2016 07:15
[2016-09-14 07:22] LABS: BASO % 1 % (0-3); EOS % 2 % (0-3); HEMATOCRIT 39.6 % (36.0-47.0); HEMOGLOBIN 12.8 g/dL (12.0-15.5); LYMPH # 1.2 x10^3/uL (1.0-4.8); LYMPH % 24 % (24-48); MEAN CORPUSCULAR HEMOGLOBIN 30 pg (25-35); MEAN CORPUSCULAR HGB CONC 32 g/dL (31-37); MEAN CORPUSCULAR VOLUME 92 fL (79-100); MONO % 8 % (0-9); NEUT % 65 % (31-73); PLATELET COUNT 167 x10^3/uL (140-400); RED BLOOD COUNT 4.32 x10^6/uL (3.50-5.40); RED CELL DISTRIBUTION WIDTH 14.4 % (11.5-14.5); WHITE BLOOD COUNT 5.1 x10^3/uL (4.0-11.0)
[2016-09-14] MEDS ORDERED: CONTRAST GIVEN MC PRN (07:45)
[2016-09-14] MEDS ORDERED: IOHEXOL 300 MG/ML 75 ML VIAL IV ONE (07:45)
[2016-09-14 07:56] LABS: CALCIUM 8.7 mg/dL (8.5-10.1); CREATININE 0.9 mg/dL (0.6-1.0); GFR 72.9; POTASSIUM 3.1 mmol/L (3.5-5.1)
--- NOTE | 2016-09-14 07:57 | RAD ---
Indication shortness of breath. A single view of the chest was obtained and is compared to an examination February 26, 2016. There is unchanged cardiomegaly. There is perhaps very mild pulmonary vascular congestion. Gross congestive heart failure is not seen. There may be a tiny left pleural effusion. No consolidated pneumonia is seen. IMPRESSION: Unchanged cardiomegaly. Suspect mild pulmonary vascular congestion. Probable tiny left pleural effusion
[2016-09-14 08:01] LABS: ALBUMIN 3.3 g/dL (3.4-5.0); DIRECT BILIRUBIN 0.3 mg/dL (0.0-0.2); MAGNESIUM 2.1 mg/dL (1.8-2.4); TOTAL BILIRUBIN 1.1 mg/dL (0.2-1.0); TOTAL PROTEIN 6.3 g/dL (6.4-8.2)
[2016-09-14 08:02] LABS: BASE EXCESS COOX 1 mmol/L (-3-3); CARBON MONOXIDE 0.3 % (0.0-1.9); HCO3 COOX 25 mmol/L (21-28); METHEMOGLOBIN 0.2 % (0.0-1.9); OXYHEMOGLOBIN 91.8 %; PCO2 COOX 36 mmHg (35-46); PO2 COOX 65 mmHg (65-108); SAT O2 COOX 92 % (92-99); TOTAL HEMOGLOBIN 12.5 g/dL
[2016-09-14 08:03] LABS: PH COOX 7.45 (7.35-7.45)
[2016-09-14 08:15] LABS: CKMB MASS 0.6 ng/mL (0.0-3.6); CREATINE KINASE 67 U/L (26-192)
[2016-09-14 09:07] LABS: BILIRUBIN,URINE NEGATIVE (NEG); GLUCOSE,URINE NEGATIVE (NEG); NITRITE,URINE NEGATIVE (NEG); PROTEIN,URINE 30 mg/dL (NEG-TRACE)
--- NOTE | 2016-09-14 09:11 | RAD ---
Indication shortness of breath and cough. Axial images through the chest were obtained. The examination was tailored for the detection of pulmonary embolus. MIP images were generated and reviewed. 75 cc of Omnipaque 300 was administered. Note is made of a previous examination 01/24/2015. Imaging through the upper abdomen shows no acute finding. There is a minute right renal calculus. There is a cyst at the cephalad aspect of the right kidney. There is generalized cardiomegaly. There is moderate coronary artery calcification. An acute or significant finding is not seen associated with the thoracic aorta. There are small bilateral pleural effusions. There is no significant hilar or mediastinal adenopathy. The study is negative for pulmonary embolus. There are some underlying emphysematous changes. There is a nonsolid parenchymal opacity in the left upper lobe. This is more conspicuous than on the previous exam. The etiology is unclear. An inflammatory focus is not excluded. A neoplastic process such as adenocarcinoma is not entirely excluded. Follow-up imaging should be considered. IMPRESSION: Negative study for pulmonary embolus. Underlying emphysematous changes. Small pleural effusions. Nonsolid parenchymal opacity in the left upper lobe more conspicuous than on the previous exam. The etiology is unclear. While this could represent an inflammatory focus neoplastic disease is not excluded. PQRS Compliance Statement: One or more of the following individualized dose reduction techniques were utilized for this examination: 1. Automated exposure control 2. Adjustment of the mA and/or kV according to patient size 3. Use of iterative reconstruction technique
[2016-09-14] MEDS ORDERED: FUROSEMIDE 40 MG/4 ML VIAL. IVP ONE (09:15)
[2016-09-14] MEDS ORDERED: NITROGLYCERIN SUBLINGUAL 0.4 MG BOTTLE OF 25. SL PRN ×2 (09:15→12:45)
[2016-09-14 09:19] LABS: BACTERIA,URINE 0 /HPF (0-FEW); SQUAMOUS EPITHELIAL CELL,UR FEW /LPF; WBC,URINE 0 /HPF (0-4)
[2016-09-14] MEDS ORDERED: ACETAMINOPHEN 325 MG TABLET. PO PRN ×2 (09:30→16:00)
[2016-09-14] MEDS ORDERED: ONDANSETRON PF 4 MG/2 ML VIAL. IV PRN ×2 (09:30→16:00)
--- NOTE | 2016-09-14 10:01 | EKG ---
[facility] [address] [place] [address] Test Date: 2016-09-14 Test Time: 06:51:17 Pat Name: JUDITH MARIA Department: Room: 200 1 Gender: F Senior Care Provider: : 1935 Requested By: KARAN BENITEZ Order Number: [id number] Reading MD: Robb Domínguez Measurements Intervals [place] Rate: 121 P: 132 [place]: 88 QRS: -64 QRSD: 140 T: 70 QT: 340 QTc: 486 Interpretive Statements A FIB. WITH RVR ABNORMAL LEFT AXIS DEVIATION NON SPECIFIC INTRAVENTRICULAR BLOCK RI6.01 Unconfirmed report Compared to ECG 02/26/2016 10:46:43 Sinus rhythm no longer present Electronically Signed On 09-14-2016 15:09:45 CDT by Robb Domínguez
[2016-09-14 10:35] VITALS: BP 153/97
[2016-09-14] MEDS ORDERED: POTASSIUM CHLORIDE 20 MEQ TABLET.ER. PO PRN (10:45)
[2016-09-14] MEDS ORDERED: POTASSIUM CHLORIDE 20 MEQ TABLET.ER. PO ONE ×2 (10:45→11:00)
[2016-09-14] MEDS ORDERED: POTASSIUM CHLORIDE 20 MEQ/15 ML ORAL LIQUID. PO PRN (10:45)
[2016-09-14] MEDS ORDERED: MAGNESIUM SULFATE 2GM 50 ML IV PRN (10:45)
[2016-09-14 11:00] VITALS: BP 135/96
--- NOTE | 2016-09-14 11:33 | EKG ---
[facility] [address] [place] [address] Test Date: 2016-09-14 Test Time: 11:16:39 Pat Name: JUDITH MARIA Department: Room: 200 1 Gender: F Geospatial Specialist: ELVIS : 1935 Requested By: KEHINDE NUNEZ Order Number: [id number] Reading MD: Robb Domínguez Measurements Intervals [place] Rate: 113 P: 0 FL: 74 QRS: -62 QRSD: 140 T: 62 QT: 370 QTc: 507 Interpretive Statements A Fib VENTRICULAR PREMATURE COMPLEX(ES) ABNORMAL LEFT AXIS DEVIATION NON SPECIFIC INTRAVENTRICULAR BLOCK ABNORMAL ECG RI6.01 Compared to ECG 02/26/2016 10:46:43 Sinus rhythm no longer present Electronically Signed On 09-15-2016 13:21:24 CDT by Robb Domínguez
[2016-09-14] MEDS ORDERED: FUROSEMIDE 40 MG TABLET. PO SCH (12:30)
[2016-09-14] MEDS ORDERED: dilTIAZem IV PUSH 25 MG/5 ML VIAL IVP ONE (12:45)
[2016-09-14] MEDS ORDERED: POTASSIUM CHLORIDE 10 MEQ TABLET.ER. PO SCH (13:30)
[2016-09-14 14:35] LABS: INR 1.6 (0.8-1.1); PROTHROMBIN TIME PATIENT 18.2 SEC (11.7-14.0)
[2016-09-14 15:00] VITALS: BP 108/58
[2016-09-14] MEDS: GABAPENTIN 300 MG CAPSULE. PO SCH ×2 (15:13→21:41)
[2016-09-14] MEDS: ANASTROZOLE 1 MG TABLET PO SCH (15:15)
[2016-09-14] MEDS ORDERED: WARFARIN 7.5 MG TABLET. PO SCH (16:00)
[2016-09-14] MEDS ORDERED: MORPHINE SULFATE 2 MG/ML DISP.SYRIN. IV PRN (16:00)
[2016-09-14] MEDS ORDERED: traMADol 50 MG TABLET PO PRN (16:00)
[2016-09-14] MEDS ORDERED: DOCUSATE SODIUM 100 MG CAPSULE. PO PRN (16:00)
[2016-09-14] MEDS ORDERED: hydrALAZINE 20 MG/ML VIAL. IVP PRN (16:00)
--- NOTE | 2016-09-14 16:05 | PDOC1 ---
History and Physical Date of Admission Date of Admission 09/14/16 Identification/Chief Complaint Chief Complaint sob Problems: Source Source: Chart review, Patient History of Present Illness History of Present Illness HPI HPI Patient is a pleasant 80-year-old female who lives with her son and grandson with a history of hypertension, hyperlipidemia, questionable congestive heart failure comes for sob. Pt has bad hear with EF 30% wo ICD, MR, phtn, afib on warfarin. She said no fever, chills, cough, but has exertional sob. no chest pain. has lasix at home, watch salt in diet. Patient does admit that she has a history of cancer and his significant treatment of right radical mastectomy. CTA SHOwed possible mass. Rapid afib now. Past Medical History Cardiovascular: AFIB Pulmonary: Pulmonary embolus, Pneumonia Heme/Onc: Cancer Past Surgical History Past Surgical History: Mastectomy Family History Family History: Hypertension Social History Smoke: No ALCOHOL: none Drugs: None Current Problem List Problem List Problems Medical Problems: (1) CHF (congestive heart failure) Status: Acute (2) SOB (shortness of breath) Status: Acute Current Medications Current Medications Current Medications Medications (Trade) Dose Ordered Sig/Nicole Start Time Stop Time Status Last Admin Dose Admin Acetaminophen (Tylenol) 650 mg PRN Q4HRS PRN 09/14/16 09:30 09/15/16 09:29 Anastrozole (Arimidex) 1 mg DAILY 09/14/16 13:30 09/14/16 15:15 1 MG Aspirin (Children'S Aspirin) 324 mg 1X ONCE 09/14/16 07:15 09/14/16 07:16 DC 09/14/16 07:45 324 MG Carvedilol (Coreg) 6.25 mg BIDWMEALS 09/14/16 17:00 Diltiazem HCl (Cardizem) 10 mg 1X ONCE 09/14/16 12:45 09/14/16 12:47 DC 09/14/16 13:01 10 MG Diltiazem HCl 125 mg/Dextrose 125 ml @ 0 mls/hr CONT PRN 09/14/16 12:45 09/14/16 13:04 5 MLS/HR Furosemide (Lasix) 40 mg DAILY 09/14/16 12:30 09/14/16 15:15 40 MG Gabapentin (Neurontin) 300 mg BID 8/5/17 13:30 09/14/16 15:13 300 MG Hydralazine HCl (Apresoline) 50 mg BID 09/14/16 13:30 Info (Do NOT chart on this entry -- for MONITORING) 1 each PRN DAILY PRN 09/14/16 07:45 09/16/16 07:44 Iohexol (Omnipaque 300 Mg/ml) 75 ml 1X ONCE 09/14/16 07:45 09/14/16 07:46 DC 09/14/16 08:21 75 ML Magnesium Sulfate/ Dextrose 50 ml @ 25 mls/hr PRN DAILY PRN 09/14/16 10:45 09/16/16 09:01 Nitroglycerin (Nitrostat) 0.4 mg PRN Q5MIN PRN 09/14/16 12:45 Ondansetron HCl (Zofran) 4 mg PRN Q8HRS PRN 09/14/16 09:30 09/15/16 09:29 Potassium Chloride (KCl Oral Soln) 40 meq PRN Q4HRS PRN 09/14/16 10:45 Potassium Chloride (Klor-Con) 10 meq DAILYWBKFT 09/14/16 13:30 09/14/16 15:14 10 MEQ Simvastatin (Zocor) 20 mg QHS 09/14/16 21:00 Sodium Chloride (Normal Saline Flush) 10 ml QSHIFT PRN 09/14/16 07:15 Warfarin Sodium (Coumadin Per Physician) 1 each PRN DAILY PRN 09/14/16 14:45 Warfarin Sodium (Coumadin) 7.5 mg DAILY16 09/14/16 16:00 09/14/16 15:16 7.5 MG Allergies Allergies Allergies Coded Allergies Type Severity Reaction Last Updated Verified No Known Drug Allergies 03/10/13 No ROS Review of System CONSTITUTIONAL: No fever or chills EYES: No recent changes SKIN: No rash or itching CARDIOVASCULAR: No chest pain, syncope, palpitations, or edema RESPIRATORY: No SOB or cough GASTROINTESTINAL: No nausea, vomiting or abdominal pain NEUROLOGICAL: No headaches or weakness ENDOCRINE: No cold or heat intolerance GENITOURINARY: No urgency or frequency of urination MUSCULOSKELETAL: No back pain or joint pain LYMPHATICS: No enlarged lymph nodes PSYCHIATRIC: No anxiety or depression Physical Exam Physical Exam GEN.: No apparent distress. Alert and oriented. HEENT: Head is normocephalic, atraumatic NECK: Supple. LUNGS: Clear to auscultation. HEART: tachy, irregular, S1, S2 present. Peripheral pulses intact ABDOMEN: Soft, nontender. Positive bowel sounds. EXTREMITIES: Without any cyanosis. NEUROLOGIC: Normal speech, normal tone PSYCHIATRIC: Normal affect, normal mood. SKIN: No ulcerations Vitals Vitals Vital Signs Date Time Temp Pulse Resp B/P (MAP) Pulse Ox O2 Delivery O2 Flow Rate FiO2 09/14/16 13:01 120 128/75 09/14/16 11:00 97.4 19 97 Room Air 97.4 Labs Labs Laboratory Tests Test 09/14/16 05:52 09/14/16 07:02 09/14/16 07:10 09/14/16 07:25 Urine Collection Type Unknown Urine Color Yellow Urine Clarity Clear Urine pH 7.0 Urine Specific [place] >=1.030 Urine Protein 30 mg/dL (NEG-TRACE) Urine Glucose (UA) Negative mg/dL (NEG) Urine Ketones (Stick) Negative mg/dL (NEG) Urine Blood Small (NEG) Urine Nitrite Negative (NEG) Urine Bilirubin Negative (NEG) Urine Urobilinogen Dipstick 1.0 mg/dL (0.2 mg/dL) Urine Leukocyte Esterase Negative (NEG) Urine RBC 6-10 /HPF (0-2) Urine WBC 0 /HPF (0-4) Urine Squamous Epithelial Cells Few /LPF Urine Bacteria 0 /HPF (0-FEW) Urine Mucus Slight /LPF O2 Saturation 92 % (92-99) Arterial Blood pH 7.45 (7.35-7.45) Arterial Blood pCO2 at Patient Temp 36 mmHg (35-46) Arterial Blood pO2 at Patient Temp 65 mmHg (65-108) Arterial Blood HCO3 25 mmol/L (21-28) Arterial Blood Base Excess 1 mmol/L (-3-3) Oxyhemoglobin 91.8 % Methemoglobin 0.2 % (0.0-1.9) Carbon Monoxide, Quantitative 0.3 % (0.0-1.9) FiO2 21.0 White Blood Count 5.1 x10^3/uL (4.0-11.0) Red Blood Count 4.32 x10^6/uL (3.50-5.40) Hemoglobin 12.8 g/dL (12.0-15.5) Hematocrit 39.6 % (36.0-47.0) Mean Corpuscular Volume 92 fL (79-100) Mean Corpuscular Hemoglobin 30 pg (25-35) Mean Corpuscular Hemoglobin Concent 32 g/dL (31-37) Red Cell Distribution Width 14.4 % (11.5-14.5) Platelet Count 167 x10^3/uL (140-400) Neutrophils (%) (Auto) 65 % (31-73) Lymphocytes (%) (Auto) 24 % (24-48) Monocytes (%) (Auto) 8 % (0-9) Eosinophils (%) (Auto) 2 % (0-3) Basophils (%) (Auto) 1 % (0-3) Neutrophils # (Auto) 3.4 x10^3uL (1.8-7.7) Lymphocytes # (Auto) 1.2 x10^3/uL (1.0-4.8) Monocytes # (Auto) 0.4 x10^3/uL (0.0-1.1) Eosinophils # (Auto) 0.1 x10^3/uL (0.0-0.7) Basophils # (Auto) 0.0 x10^3/uL (0.0-0.2) Sodium Level 145 mmol/L (136-145) Potassium Level 3.1 mmol/L (3.5-5.1) Chloride Level 110 mmol/L (98-107) Carbon Dioxide Level 25 mmol/L (21-32) Anion Gap 10 (6-14) Blood Urea Nitrogen 15 mg/dL (7-20) Creatinine 0.9 mg/dL (0.6-1.0) Estimated GFR (Cockcroft-Gault) 72.9 Glucose Level 114 mg/dL (70-99) Calcium Level 8.7 mg/dL (8.5-10.1) Magnesium Level 2.1 mg/dL (1.8-2.4) Total Bilirubin 1.1 mg/dL (0.2-1.0) Direct Bilirubin 0.3 mg/dL (0.0-0.2) Aspartate Amino Transf (AST/SGOT) 18 U/L (15-37) Alanine Aminotransferase (ALT/SGPT) 28 U/L (14-59) Alkaline Phosphatase 56 U/L (46-116) Creatine Kinase 67 U/L (26-192) Creatine Kinase MB (Mass) 0.6 ng/mL (0.0-3.6) Creatine Kinase MB Relative Index % (0-4) Troponin I Quantitative 0.043 ng/mL (0.000-0.055) PZ-Dzi-S-Type Natriuretic Peptide 9063 pg/mL (0-449) Total Protein 6.3 g/dL (6.4-8.2) Albumin 3.3 g/dL (3.4-5.0) Lipase 161 U/L (73-393) Thyroid Stimulating Hormone (TSH) 2.356 uIU/mL (0.358-3.74) Test 09/14/16 14:08 09/14/16 14:20 Prothrombin Time 18.2 SEC (11.7-14.0) Prothromb Time International Ratio 1.6 (0.8-1.1) Troponin I Quantitative 0.043 ng/mL (0.000-0.055) Laboratory Tests Test 09/14/16 05:52 09/14/16 07:02 09/14/16 07:10 09/14/16 07:25 Urine Collection Type Unknown Urine Color Yellow Urine Clarity Clear Urine pH 7.0 Urine Specific [place] >=1.030 Urine Protein 30 mg/dL (NEG-TRACE) Urine Glucose (UA) Negative mg/dL (NEG) Urine Ketones (Stick) Negative mg/dL (NEG) Urine Blood Small (NEG) Urine Nitrite Negative (NEG) Urine Bilirubin Negative (NEG) Urine Urobilinogen Dipstick 1.0 mg/dL (0.2 mg/dL) Urine Leukocyte Esterase Negative (NEG) Urine RBC 6-10 /HPF (0-2) Urine WBC 0 /HPF (0-4) Urine Squamous Epithelial Cells Few /LPF Urine Bacteria 0 /HPF (0-FEW) Urine Mucus Slight /LPF O2 Saturation 92 % (92-99) Arterial Blood pH 7.45 (7.35-7.45) Arterial Blood pCO2 at Patient Temp 36 mmHg (35-46) Arterial Blood pO2 at Patient Temp 65 mmHg (65-108) Arterial Blood HCO3 25 mmol/L (21-28) Arterial Blood Base Excess 1 mmol/L (-3-3) Oxyhemoglobin 91.8 % Methemoglobin 0.2 % (0.0-1.9) Carbon Monoxide, Quantitative 0.3 % (0.0-1.9) FiO2 21.0 White Blood Count 5.1 x10^3/uL (4.0-11.0) Red Blood Count 4.32 x10^6/uL (3.50-5.40) Hemoglobin 12.8 g/dL (12.0-15.5) Hematocrit 39.6 % (36.0-47.0) Mean Corpuscular Volume 92 fL (79-100) Mean Corpuscular Hemoglobin 30 pg (25-35) Mean Corpuscular Hemoglobin Concent 32 g/dL (31-37) Red Cell Distribution Width 14.4 % (11.5-14.5) Platelet Count 167 x10^3/uL (140-400) Neutrophils (%) (Auto) 65 % (31-73) Lymphocytes (%) (Auto) 24 % (24-48) Monocytes (%) (Auto) 8 % (0-9) Eosinophils (%) (Auto) 2 % (0-3) Basophils (%) (Auto) 1 % (0-3) Neutrophils # (Auto) 3.4 x10^3uL (1.8-7.7) Lymphocytes # (Auto) 1.2 x10^3/uL (1.0-4.8) Monocytes # (Auto) 0.4 x10^3/uL (0.0-1.1) Eosinophils # (Auto) 0.1 x10^3/uL (0.0-0.7) Basophils # (Auto) 0.0 x10^3/uL (0.0-0.2) Sodium Level 145 mmol/L (136-145) Potassium Level 3.1 mmol/L (3.5-5.1) Chloride Level 110 mmol/L (98-107) Carbon Dioxide Level 25 mmol/L (21-32) Anion Gap 10 (6-14) Blood Urea Nitrogen 15 mg/dL (7-20) Creatinine 0.9 mg/dL (0.6-1.0) Estimated GFR (Cockcroft-Gault) 72.9 Glucose Level 114 mg/dL (70-99) Calcium Level 8.7 mg/dL (8.5-10.1) Magnesium Level 2.1 mg/dL (1.8-2.4) Total Bilirubin 1.1 mg/dL (0.2-1.0) Direct Bilirubin 0.3 mg/dL (0.0-0.2) Aspartate Amino Transf (AST/SGOT) 18 U/L (15-37) Alanine Aminotransferase (ALT/SGPT) 28 U/L (14-59) Alkaline Phosphatase 56 U/L (46-116) Creatine Kinase 67 U/L (26-192) Creatine Kinase MB (Mass) 0.6 ng/mL (0.0-3.6) Creatine Kinase MB Relative Index % (0-4) Troponin I Quantitative 0.043 ng/mL (0.000-0.055) WT-Uqu-C-Type Natriuretic Peptide 9063 pg/mL (0-449) Total Protein 6.3 g/dL (6.4-8.2) Albumin 3.3 g/dL (3.4-5.0) Lipase 161 U/L (73-393) Thyroid Stimulating Hormone (TSH) 2.356 uIU/mL (0.358-3.74) Test 09/14/16 14:08 09/14/16 14:20 Prothrombin Time 18.2 SEC (11.7-14.0) Prothromb Time International Ratio 1.6 (0.8-1.1) Troponin I Quantitative 0.043 ng/mL (0.000-0.055) VTE Prophylaxis Ordered VTE Prophylaxis Devices: Yes VTE Pharmacological Prophylaxi: No Assessment/Plan Assessment/Plan dyspnea, with multiple factors, including chf, phtn, lung mass? systolic chf exacerbation diastolic chf phtn MR rapid afib htn hld h/o BCa post sx possible lung mass on ct hypokalemia plan: cont home meds card, lung consult on cardizem drip now, increase coreg to 12.5bid, may need add cardizem lasix 40mg increase to bid replete K card dr. Hodge on warfarin, inr daily admit >2 night KEHINDE NUNEZ MD Sep 14, 2016 16:05
--- NOTE | 2016-09-14 16:23 | PDOC2 ---
CONSULT Date of Consult Date of Consult DATE: 09/14/16 TIME: 16:15 Reason for Consult Reason for Consult: Covering for Dr. Hodge Referring Physician Referring Physician: Dr Mascorro Identification/Chief Complaint Chief Complaint Dyspnea Problems: History of Present Illness Reason for Visit: This patient is an 80-year-old lady that follows with Dr. Hodge for several years. The patient has a known history of a peptic breast cancer, chronic atrial fibrillation, hypertension, and is an ex-smoker. The patient came in with gradual onset of dyspnea for about 2 weeks that got worse and she felt like she couldn't breathe anymore and that's why she came in. She was seen and evaluated in the emergency room and he was decided to admit her. In addition to the shortness of breath the patient was tachycardic. She denies having any chest pains during this episodes and was not aware of the fast heart rate, no palpitations, no loss of consciousness. At the time that I examined her she states that she is feeling better. The patient is in atrial fibrillation with a rate of about 124 the ventricular response Past Medical History Cardiovascular: AFIB Pulmonary: COPD, Pulmonary embolus, Pneumonia Heme/Onc: Cancer Past Surgical History Past Surgical History: Mastectomy Family History Family History: Hypertension Social History No ALCOHOL: none Drugs: None Current Problem List Problem List Problems Medical Problems: (1) CHF (congestive heart failure) Status: Acute (2) SOB (shortness of breath) Status: Acute Current Medications Current Medications Current Medications Aspirin (Children'S Aspirin) 324 mg 1X ONCE PO Last administered on 09/14/16 07:45; Start 09/14/16 at 07:15; Stop 09/14/16 at 07:16; Status DC Sodium Chloride (Normal Saline Flush) 10 ml QSHIFT PRN IV AFTER MEDS AND BLOOD DRAWS; Start 09/14/16 at 07:15 Iohexol (Omnipaque 300 Mg/ml) 75 ml 1X ONCE IV Last administered on 09/14/16 08:21; Start 09/14/16 at 07:45; Stop 09/14/16 at 07:46; Status DC Info (Do NOT chart on this entry -- for MONITORING) 1 each PRN DAILY PRN MC SEE COMMENTS; Start 09/14/16 at 07:45; Stop 09/16/16 at 07:44 Furosemide (Lasix) 40 mg 1X ONCE IVP Last administered on 09/14/16 09:19; Start 09/14/16 at 09:15; Stop 09/14/16 at 09:16; Status DC Nitroglycerin (Nitrostat) 0.4 mg PRN Q5MIN PRN SL CHEST PAIN; Start 09/14/16 at 09:15 Ondansetron HCl (Zofran) 4 mg PRN Q8HRS PRN IV NAUSEA/VOMITING; Start 09/14/16 at 09:30; Stop 09/15/16 at 09:29 Acetaminophen (Tylenol) 650 mg PRN Q4HRS PRN PO FEVER; Start 09/14/16 at 09:30; Stop 09/15/16 at 09:29 Potassium Chloride (Klor-Con) 40 meq 1X ONCE PO Last administered on 09/14/16 10:54; Start 09/14/16 at 10:45; Stop 09/14/16 at 10:46; Status DC Potassium Chloride (Klor-Con) 40 meq 1X ONCE PO ; Start 09/14/16 at 11:00; Stop 09/14/16 at 11:00; Status DC Magnesium Sulfate/ Dextrose 50 ml @ 25 mls/hr PRN DAILY PRN IV FOR MAGNESIUM LEVEL 1.7 MEQ/L; Start 09/14/16 at 10:45; Stop 09/16/16 at 09:01 Potassium Chloride (KCl Oral Soln) 40 meq PRN Q4HRS PRN PO FOR POTASSIUM LEVEL 3.0 MEQ/L; Start 09/14/16 at 10:45 Potassium Chloride (Klor-Con) 40 meq PRN 1X PRN PO FOR POTASSIUM LEVEL 3.1-3.5 ; Start 09/14/16 at 10:45 Anastrozole (Arimidex) 1 mg DAILY PO Last administered on 09/14/16 15:15; Start 09/14/16 at 13:30 Carvedilol (Coreg) 6.25 mg BIDWMEALS PO ; Start 09/14/16 at 17:00; Stop 09/14/16 at 17:00; Status DC Furosemide (Lasix) 40 mg DAILY PO Last administered on 09/14/16 15:15; Start at 12:30; Stop 09/14/16 at 16:01; Status DC Hydralazine HCl (Apresoline) 50 mg BID PO ; Start 09/14/16 at 13:30 Nitroglycerin (Nitrostat) 0.4 mg PRN Q5MIN PRN SL CHEST PAIN; Start 09/14/16 at 12:45 Simvastatin (Zocor) 20 mg QHS PO ; Start 09/14/16 at 21:00 Warfarin Sodium (Coumadin) 7.5 mg DAILY16 PO Last administered on 09/14/16 15: 16; Start 09/14/16 at 16:00 Gabapentin (Neurontin) 300 mg BID PO Last administered on 09/14/16 15:13; Start 09/14/16 at 13:30 Potassium Chloride (Klor-Con) 10 meq DAILYWBKFT PO Last administered on 15:14; Start 09/14/16 at 13:30; Stop 09/14/16 at 16:01; Status DC Diltiazem HCl 125 mg/Dextrose 125 ml @ 0 mls/hr CONT PRN IV SEE I/O RECORD Last administered on 09/14/16 13:04; Start 09/14/16 at 12:45 Diltiazem HCl (Cardizem) 10 mg 1X ONCE IVP Last administered on 09/14/16 13:01 ; Start 09/14/16 at 12:45; Stop 09/14/16 at 12:47; Status DC Warfarin Sodium (Coumadin Per Physician) 1 each PRN DAILY PRN MC SEE COMMENTS; Start 09/14/16 at 14:45; Stop 09/14/16 at 16:01; Status DC Carvedilol (Coreg) 12.5 mg BIDWMEALS PO ; Start 09/14/16 at 17:00 Furosemide (Lasix) 40 mg BID PO ; Start 09/14/16 at 21:00 Potassium Chloride (Klor-Con) 20 meq DAILYWBKFT PO ; Start 09/15/16 at 08:00 Warfarin Sodium (Coumadin Per Pharmacy) 1 each PRN DAILY PRN MC SEE COMMENTS Last administered on 09/14/16 16:07; Start 09/14/16 at 16:00 Acetaminophen (Tylenol) 650 mg PRN Q6HRS PRN PO FEVER; Start 09/14/16 at 16:00 Ondansetron HCl (Zofran) 4 mg PRN Q6HRS PRN IV NAUSEA/VOMITING; Start 09/14/16 at 16:00 Morphine Sulfate 2 mg PRN Q2HR PRN IV PAIN; Start 09/14/16 at 16:00 Tramadol HCl (Ultram) 50 mg PRN Q6HRS PRN PO PAIN; Start 09/14/16 at 16:00 Hydralazine HCl (Apresoline) 10 mg PRN Q4HRS PRN IVP ELEVATED BP, SEE COMMENTS ; Start 09/14/16 at 16:00 Docusate Sodium (Colace) 100 mg PRN DAILY PRN PO CONSTIPATION; Start 09/14/16 at 16:00 Active Scripts Active Lasix (Furosemide) 40 Mg Tablet 1 Tab PO DAILY Reported Gabapentin 300 Mg Capsule 1 Cap PO BID Coreg (Carvedilol) 6.25 Mg Tablet 1 Tab PO BID Warfarin Sodium 5 Mg Tablet 7.5 Mg PO QSASU Hydralazine Hcl 50 Mg Tablet 50 Mg PO BID NITROGLYCERIN SubLingual (Nitroglycerin) 0.4 Mg Tab.subl 0.4 Mg SL PRN Q5MIN PRN Anastrozole 1 Mg Tablet 1 Mg PO DAILY Simvastatin 20 Mg Tablet 20 Mg PO QHS Klor-Con 10 (Potassium Chloride) 10 Meq Tablet.er 10 Meq PO DAILY Allergies Allergies: Coded Allergies: No Known Drug Allergies (Unverified , 03/10/13) Physical Exam General: Alert, Oriented X3, Cooperative HEENT: PERRLA Lungs: Other (breath sounds are decreased, mild wheezing. No Rales) Heart: Other (irregularly irregular, tachycardic, S1 and S2) Abdomen: Normal bowel sounds, Soft Extremities: No edema Vitals VITALS Vital Signs Date Time Temp Pulse Resp B/P (MAP) Pulse Ox O2 Delivery O2 Flow Rate FiO2 09/14/16 15:59 Room Air 09/14/16 15:00 98.1 75 14 108/58 (75) 98 98.1 Labs Labs Laboratory Tests Test 09/14/16 05:52 09/14/16 07:02 09/14/16 07:10 09/14/16 07:25 Urine Collection Type Unknown Urine Color Yellow Urine Clarity Clear Urine pH 7.0 Urine Specific [place] >=1.030 Urine Protein 30 mg/dL (NEG-TRACE) Urine Glucose (UA) Negative mg/dL (NEG) Urine Ketones (Stick) Negative mg/dL (NEG) Urine Blood Small (NEG) Urine Nitrite Negative (NEG) Urine Bilirubin Negative (NEG) Urine Urobilinogen Dipstick 1.0 mg/dL (0.2 mg/dL) Urine Leukocyte Esterase Negative (NEG) Urine RBC 6-10 /HPF (0-2) Urine WBC 0 /HPF (0-4) Urine Squamous Epithelial Cells Few /LPF Urine Bacteria 0 /HPF (0-FEW) Urine Mucus Slight /LPF O2 Saturation 92 % (92-99) Arterial Blood pH 7.45 (7.35-7.45) Arterial Blood pCO2 at Patient Temp 36 mmHg (35-46) Arterial Blood pO2 at Patient Temp 65 mmHg (65-108) Arterial Blood HCO3 25 mmol/L (21-28) Arterial Blood Base Excess 1 mmol/L (-3-3) Oxyhemoglobin 91.8 % Methemoglobin 0.2 % (0.0-1.9) Carbon Monoxide, Quantitative 0.3 % (0.0-1.9) FiO2 21.0 White Blood Count 5.1 x10^3/uL (4.0-11.0) Red Blood Count 4.32 x10^6/uL (3.50-5.40) Hemoglobin 12.8 g/dL (12.0-15.5) Hematocrit 39.6 % (36.0-47.0) Mean Corpuscular Volume 92 fL (79-100) Mean Corpuscular Hemoglobin 30 pg (25-35) Mean Corpuscular Hemoglobin Concent 32 g/dL (31-37) Red Cell Distribution Width 14.4 % (11.5-14.5) Platelet Count 167 x10^3/uL (140-400) Neutrophils (%) (Auto) 65 % (31-73) Lymphocytes (%) (Auto) 24 % (24-48) Monocytes (%) (Auto) 8 % (0-9) Eosinophils (%) (Auto) 2 % (0-3) Basophils (%) (Auto) 1 % (0-3) Neutrophils # (Auto) 3.4 x10^3uL (1.8-7.7) Lymphocytes # (Auto) 1.2 x10^3/uL (1.0-4.8) Monocytes # (Auto) 0.4 x10^3/uL (0.0-1.1) Eosinophils # (Auto) 0.1 x10^3/uL (0.0-0.7) Basophils # (Auto) 0.0 x10^3/uL (0.0-0.2) Sodium Level 145 mmol/L (136-145) Potassium Level 3.1 mmol/L (3.5-5.1) Chloride Level 110 mmol/L (98-107) Carbon Dioxide Level 25 mmol/L (21-32) Anion Gap 10 (6-14) Blood Urea Nitrogen 15 mg/dL (7-20) Creatinine 0.9 mg/dL (0.6-1.0) Estimated GFR (Cockcroft-Gault) 72.9 Glucose Level 114 mg/dL (70-99) Calcium Level 8.7 mg/dL (8.5-10.1) Magnesium Level 2.1 mg/dL (1.8-2.4) Total Bilirubin 1.1 mg/dL (0.2-1.0) Direct Bilirubin 0.3 mg/dL (0.0-0.2) Aspartate Amino Transf (AST/SGOT) 18 U/L (15-37) Alanine Aminotransferase (ALT/SGPT) 28 U/L (14-59) Alkaline Phosphatase 56 U/L (46-116) Creatine Kinase 67 U/L (26-192) Creatine Kinase MB (Mass) 0.6 ng/mL (0.0-3.6) Creatine Kinase MB Relative Index % (0-4) Troponin I Quantitative 0.043 ng/mL (0.000-0.055) ZS-Kje-F-Type Natriuretic Peptide 9063 pg/mL (0-449) Total Protein 6.3 g/dL (6.4-8.2) Albumin 3.3 g/dL (3.4-5.0) Lipase 161 U/L (73-393) Thyroid Stimulating Hormone (TSH) 2.356 uIU/mL (0.358-3.74) Test 09/14/16 14:08 09/14/16 14:20 Prothrombin Time 18.2 SEC (11.7-14.0) Prothromb Time International Ratio 1.6 (0.8-1.1) Troponin I Quantitative 0.043 ng/mL (0.000-0.055) Laboratory Tests Test 09/14/16 05:52 8/5/17 07:02 09/14/16 07:10 09/14/16 07:25 Urine Collection Type Unknown Urine Color Yellow Urine Clarity Clear Urine pH 7.0 Urine Specific [place] >=1.030 Urine Protein 30 mg/dL (NEG-TRACE) Urine Glucose (UA) Negative mg/dL (NEG) Urine Ketones (Stick) Negative mg/dL (NEG) Urine Blood Small (NEG) Urine Nitrite Negative (NEG) Urine Bilirubin Negative (NEG) Urine Urobilinogen Dipstick 1.0 mg/dL (0.2 mg/dL) Urine Leukocyte Esterase Negative (NEG) Urine RBC 6-10 /HPF (0-2) Urine WBC 0 /HPF (0-4) Urine Squamous Epithelial Cells Few /LPF Urine Bacteria 0 /HPF (0-FEW) Urine Mucus Slight /LPF O2 Saturation 92 % (92-99) Arterial Blood pH 7.45 (7.35-7.45) Arterial Blood pCO2 at Patient Temp 36 mmHg (35-46) Arterial Blood pO2 at Patient Temp 65 mmHg (65-108) Arterial Blood HCO3 25 mmol/L (21-28) Arterial Blood Base Excess 1 mmol/L (-3-3) Oxyhemoglobin 91.8 % Methemoglobin 0.2 % (0.0-1.9) Carbon Monoxide, Quantitative 0.3 % (0.0-1.9) FiO2 21.0 White Blood Count 5.1 x10^3/uL (4.0-11.0) Red Blood Count 4.32 x10^6/uL (3.50-5.40) Hemoglobin 12.8 g/dL (12.0-15.5) Hematocrit 39.6 % (36.0-47.0) Mean Corpuscular Volume 92 fL (79-100) Mean Corpuscular Hemoglobin 30 pg (25-35) Mean Corpuscular Hemoglobin Concent 32 g/dL (31-37) Red Cell Distribution Width 14.4 % (11.5-14.5) Platelet Count 167 x10^3/uL (140-400) Neutrophils (%) (Auto) 65 % (31-73) Lymphocytes (%) (Auto) 24 % (24-48) Monocytes (%) (Auto) 8 % (0-9) Eosinophils (%) (Auto) 2 % (0-3) Basophils (%) (Auto) 1 % (0-3) Neutrophils # (Auto) 3.4 x10^3uL (1.8-7.7) Lymphocytes # (Auto) 1.2 x10^3/uL (1.0-4.8) Monocytes # (Auto) 0.4 x10^3/uL (0.0-1.1) Eosinophils # (Auto) 0.1 x10^3/uL (0.0-0.7) Basophils # (Auto) 0.0 x10^3/uL (0.0-0.2) Sodium Level 145 mmol/L (136-145) Potassium Level 3.1 mmol/L (3.5-5.1) Chloride Level 110 mmol/L (98-107) Carbon Dioxide Level 25 mmol/L (21-32) Anion Gap 10 (6-14) Blood Urea Nitrogen 15 mg/dL (7-20) Creatinine 0.9 mg/dL (0.6-1.0) Estimated GFR (Cockcroft-Gault) 72.9 Glucose Level 114 mg/dL (70-99) Calcium Level 8.7 mg/dL (8.5-10.1) Magnesium Level 2.1 mg/dL (1.8-2.4) Total Bilirubin 1.1 mg/dL (0.2-1.0) Direct Bilirubin 0.3 mg/dL (0.0-0.2) Aspartate Amino Transf (AST/SGOT) 18 U/L (15-37) Alanine Aminotransferase (ALT/SGPT) 28 U/L (14-59) Alkaline Phosphatase 56 U/L (46-116) Creatine Kinase 67 U/L (26-192) Creatine Kinase MB (Mass) 0.6 ng/mL (0.0-3.6) Creatine Kinase MB Relative Index % (0-4) Troponin I Quantitative 0.043 ng/mL (0.000-0.055) IC-Vav-S-Type Natriuretic Peptide 9063 pg/mL (0-449) Total Protein 6.3 g/dL (6.4-8.2) Albumin 3.3 g/dL (3.4-5.0) Lipase 161 U/L (73-393) Thyroid Stimulating Hormone (TSH) 2.356 uIU/mL (0.358-3.74) Test 09/14/16 14:08 09/14/16 14:20 Prothrombin Time 18.2 SEC (11.7-14.0) Prothromb Time International Ratio 1.6 (0.8-1.1) Troponin I Quantitative 0.043 ng/mL (0.000-0.055) Assessment/Plan Assessment/Plan Patient comes in with respiratory problems. At this point it does not appear to be acute CHF, she is in atrial fibrillation with a rapid ventricular response and her blood pressure is running in the 130s over 90s therefore I would like to start her on a Cardizem drip and see how she does. Thank you very much for asking us to participate in the care of this patient CATIA HWANG MD Sep 14, 2016 16:23
[2016-09-14] MEDS ORDERED: CARVEDILOL 6.25 MG TABLET. PO SCH (17:00)
[2016-09-14] MEDS: CARVEDILOL 12.5 MG TABLET. PO SCH (17:18)
[2016-09-14] MEDS ORDERED: METOPROLOL TARTRATE 5 MG/5 ML VIAL. IVP PRN (18:45)
[2016-09-14 19:05] VITALS: BP 121/78
[2016-09-14] MEDS: FUROSEMIDE 40 MG TABLET. PO SCH (21:00)
[2016-09-14] MEDS: SIMVASTATIN 20 MG TABLET PO SCH (21:41)
[2016-09-14 23:37] VITALS: BP 109/75
[2016-09-15 03:15] VITALS: BP 111/67
[2016-09-15 05:32] LABS: BASO % 1 % (0-3); EOS % 2 % (0-3); HEMATOCRIT 36.6 % (36.0-47.0); HEMOGLOBIN 11.9 g/dL (12.0-15.5); LYMPH # 1.2 x10^3/uL (1.0-4.8); LYMPH % 26 % (24-48); MEAN CORPUSCULAR HEMOGLOBIN 29 pg (25-35); MEAN CORPUSCULAR HGB CONC 32 g/dL (31-37); MEAN CORPUSCULAR VOLUME 91 fL (79-100); MONO % 9 % (0-9); NEUT % 64 % (31-73); PLATELET COUNT 151 x10^3/uL (140-400); RED BLOOD COUNT 4.04 x10^6/uL (3.50-5.40); RED CELL DISTRIBUTION WIDTH 13.8 % (11.5-14.5); WHITE BLOOD COUNT 4.5 x10^3/uL (4.0-11.0)
[2016-09-15 05:40] LABS: INR 1.6 (0.8-1.1)
--- NOTE | 2016-09-15 05:51 | PDOC ---
PULMONARY PROGRESS NOTES Vitals Vital Signs Date Time Temp Pulse Resp B/P (MAP) Pulse Ox O2 Delivery O2 Flow Rate FiO2 09/15/16 03:15 97.7 111 22 111/67 (82) 100 Nasal Cannula 2.0 97.7 Lungs: Crackles Labs Laboratory Tests Test 09/14/16 05:52 09/14/16 07:02 09/14/16 07:10 09/14/16 07:25 Urine Collection Type Unknown Urine Color Yellow Urine Clarity Clear Urine pH 7.0 Urine Specific [place] >=1.030 Urine Protein 30 mg/dL (NEG-TRACE) Urine Glucose (UA) Negative mg/dL (NEG) Urine Ketones (Stick) Negative mg/dL (NEG) Urine Blood Small (NEG) Urine Nitrite Negative (NEG) Urine Bilirubin Negative (NEG) Urine Urobilinogen Dipstick 1.0 mg/dL (0.2 mg/dL) Urine Leukocyte Esterase Negative (NEG) Urine RBC 6-10 /HPF (0-2) Urine WBC 0 /HPF (0-4) Urine Squamous Epithelial Cells Few /LPF Urine Bacteria 0 /HPF (0-FEW) Urine Mucus Slight /LPF O2 Saturation 92 % (92-99) Arterial Blood pH 7.45 (7.35-7.45) Arterial Blood pCO2 at Patient Temp 36 mmHg (35-46) Arterial Blood pO2 at Patient Temp 65 mmHg (65-108) Arterial Blood HCO3 25 mmol/L (21-28) Arterial Blood Base Excess 1 mmol/L (-3-3) Oxyhemoglobin 91.8 % Methemoglobin 0.2 % (0.0-1.9) Carbon Monoxide, Quantitative 0.3 % (0.0-1.9) FiO2 21.0 White Blood Count 5.1 x10^3/uL (4.0-11.0) Red Blood Count 4.32 x10^6/uL (3.50-5.40) Hemoglobin 12.8 g/dL (12.0-15.5) Hematocrit 39.6 % (36.0-47.0) Mean Corpuscular Volume 92 fL (79-100) Mean Corpuscular Hemoglobin 30 pg (25-35) Mean Corpuscular Hemoglobin Concent 32 g/dL (31-37) Red Cell Distribution Width 14.4 % (11.5-14.5) Platelet Count 167 x10^3/uL (140-400) Neutrophils (%) (Auto) 65 % (31-73) Lymphocytes (%) (Auto) 24 % (24-48) Monocytes (%) (Auto) 8 % (0-9) Eosinophils (%) (Auto) 2 % (0-3) Basophils (%) (Auto) 1 % (0-3) Neutrophils # (Auto) 3.4 x10^3uL (1.8-7.7) Lymphocytes # (Auto) 1.2 x10^3/uL (1.0-4.8) Monocytes # (Auto) 0.4 x10^3/uL (0.0-1.1) Eosinophils # (Auto) 0.1 x10^3/uL (0.0-0.7) Basophils # (Auto) 0.0 x10^3/uL (0.0-0.2) Sodium Level 145 mmol/L (136-145) Potassium Level 3.1 mmol/L (3.5-5.1) Chloride Level 110 mmol/L (98-107) Carbon Dioxide Level 25 mmol/L (21-32) Anion Gap 10 (6-14) Blood Urea Nitrogen 15 mg/dL (7-20) Creatinine 0.9 mg/dL (0.6-1.0) Estimated GFR (Cockcroft-Gault) 72.9 Glucose Level 114 mg/dL (70-99) Calcium Level 8.7 mg/dL (8.5-10.1) Magnesium Level 2.1 mg/dL (1.8-2.4) Total Bilirubin 1.1 mg/dL (0.2-1.0) Direct Bilirubin 0.3 mg/dL (0.0-0.2) Aspartate Amino Transf (AST/SGOT) 18 U/L (15-37) Alanine Aminotransferase (ALT/SGPT) 28 U/L (14-59) Alkaline Phosphatase 56 U/L (46-116) Creatine Kinase 67 U/L (26-192) Creatine Kinase MB (Mass) 0.6 ng/mL (0.0-3.6) Creatine Kinase MB Relative Index % (0-4) Troponin I Quantitative 0.043 ng/mL (0.000-0.055) GN-Whv-S-Type Natriuretic Peptide 9063 pg/mL (0-449) Total Protein 6.3 g/dL (6.4-8.2) Albumin 3.3 g/dL (3.4-5.0) Lipase 161 U/L (73-393) Thyroid Stimulating Hormone (TSH) 2.356 uIU/mL (0.358-3.74) Test 09/14/16 14:08 09/14/16 14:20 09/14/16 19:55 09/15/16 05:00 Prothrombin Time 18.2 SEC (11.7-14.0) 18.0 SEC (11.7-14.0) Prothromb Time International Ratio 1.6 (0.8-1.1) 1.6 (0.8-1.1) Troponin I Quantitative 0.043 ng/mL (0.000-0.055) 0.045 ng/mL (0.000-0.055) White Blood Count 4.5 x10^3/uL (4.0-11.0) Red Blood Count 4.04 x10^6/uL (3.50-5.40) Hemoglobin 11.9 g/dL (12.0-15.5) Hematocrit 36.6 % (36.0-47.0) Mean Corpuscular Volume 91 fL (79-100) Mean Corpuscular Hemoglobin 29 pg (25-35) Mean Corpuscular Hemoglobin Concent 32 g/dL (31-37) Red Cell Distribution Width 13.8 % (11.5-14.5) Platelet Count 151 x10^3/uL (140-400) Neutrophils (%) (Auto) 64 % (31-73) Lymphocytes (%) (Auto) 26 % (24-48) Monocytes (%) (Auto) 9 % (0-9) Eosinophils (%) (Auto) 2 % (0-3) Basophils (%) (Auto) 1 % (0-3) Neutrophils # (Auto) 2.9 x10^3uL (1.8-7.7) Lymphocytes # (Auto) 1.2 x10^3/uL (1.0-4.8) Monocytes # (Auto) 0.4 x10^3/uL (0.0-1.1) Eosinophils # (Auto) 0.1 x10^3/uL (0.0-0.7) Basophils # (Auto) 0.0 x10^3/uL (0.0-0.2) Laboratory Tests Test 09/14/16 05:52 09/14/16 07:02 09/14/16 07:10 09/14/16 07:25 Urine Collection Type Unknown Urine Color Yellow Urine Clarity Clear Urine pH 7.0 Urine Specific [place] >=1.030 Urine Protein 30 mg/dL (NEG-TRACE) Urine Glucose (UA) Negative mg/dL (NEG) Urine Ketones (Stick) Negative mg/dL (NEG) Urine Blood Small (NEG) Urine Nitrite Negative (NEG) Urine Bilirubin Negative (NEG) Urine Urobilinogen Dipstick 1.0 mg/dL (0.2 mg/dL) Urine Leukocyte Esterase Negative (NEG) Urine RBC 6-10 /HPF (0-2) Urine WBC 0 /HPF (0-4) Urine Squamous Epithelial Cells Few /LPF Urine Bacteria 0 /HPF (0-FEW) Urine Mucus Slight /LPF O2 Saturation 92 % (92-99) Arterial Blood pH 7.45 (7.35-7.45) Arterial Blood pCO2 at Patient Temp 36 mmHg (35-46) Arterial Blood pO2 at Patient Temp 65 mmHg (65-108) Arterial Blood HCO3 25 mmol/L (21-28) Arterial Blood Base Excess 1 mmol/L (-3-3) Oxyhemoglobin 91.8 % Methemoglobin 0.2 % (0.0-1.9) Carbon Monoxide, Quantitative 0.3 % (0.0-1.9) FiO2 21.0 White Blood Count 5.1 x10^3/uL (4.0-11.0) Red Blood Count 4.32 x10^6/uL (3.50-5.40) Hemoglobin 12.8 g/dL (12.0-15.5) Hematocrit 39.6 % (36.0-47.0) Mean Corpuscular Volume 92 fL (79-100) Mean Corpuscular Hemoglobin 30 pg (25-35) Mean Corpuscular Hemoglobin Concent 32 g/dL (31-37) Red Cell Distribution Width 14.4 % (11.5-14.5) Platelet Count 167 x10^3/uL (140-400) Neutrophils (%) (Auto) 65 % (31-73) Lymphocytes (%) (Auto) 24 % (24-48) Monocytes (%) (Auto) 8 % (0-9) Eosinophils (%) (Auto) 2 % (0-3) Basophils (%) (Auto) 1 % (0-3) Neutrophils # (Auto) 3.4 x10^3uL (1.8-7.7) Lymphocytes # (Auto) 1.2 x10^3/uL (1.0-4.8) Monocytes # (Auto) 0.4 x10^3/uL (0.0-1.1) Eosinophils # (Auto) 0.1 x10^3/uL (0.0-0.7) Basophils # (Auto) 0.0 x10^3/uL (0.0-0.2) Sodium Level 145 mmol/L (136-145) Potassium Level 3.1 mmol/L (3.5-5.1) Chloride Level 110 mmol/L (98-107) Carbon Dioxide Level 25 mmol/L (21-32) Anion Gap 10 (6-14) Blood Urea Nitrogen 15 mg/dL (7-20) Creatinine 0.9 mg/dL (0.6-1.0) Estimated GFR (Cockcroft-Gault) 72.9 Glucose Level 114 mg/dL (70-99) Calcium Level 8.7 mg/dL (8.5-10.1) Magnesium Level 2.1 mg/dL (1.8-2.4) Total Bilirubin 1.1 mg/dL (0.2-1.0) Direct Bilirubin 0.3 mg/dL (0.0-0.2) Aspartate Amino Transf (AST/SGOT) 18 U/L (15-37) Alanine Aminotransferase (ALT/SGPT) 28 U/L (14-59) Alkaline Phosphatase 56 U/L (46-116) Creatine Kinase 67 U/L (26-192) Creatine Kinase MB (Mass) 0.6 ng/mL (0.0-3.6) Creatine Kinase MB Relative Index % (0-4) Troponin I Quantitative 0.043 ng/mL (0.000-0.055) AQ-Opv-G-Type Natriuretic Peptide 9063 pg/mL (0-449) Total Protein 6.3 g/dL (6.4-8.2) Albumin 3.3 g/dL (3.4-5.0) Lipase 161 U/L (73-393) Thyroid Stimulating Hormone (TSH) 2.356 uIU/mL (0.358-3.74) Test 09/14/16 14:08 09/14/16 14:20 09/14/16 19:55 09/15/16 05:00 Prothrombin Time 18.2 SEC (11.7-14.0) 18.0 SEC (11.7-14.0) Prothromb Time International Ratio 1.6 (0.8-1.1) 1.6 (0.8-1.1) Troponin I Quantitative 0.043 ng/mL (0.000-0.055) 0.045 ng/mL (0.000-0.055) White Blood Count 4.5 x10^3/uL (4.0-11.0) Red Blood Count 4.04 x10^6/uL (3.50-5.40) Hemoglobin 11.9 g/dL (12.0-15.5) Hematocrit 36.6 % (36.0-47.0) Mean Corpuscular Volume 91 fL (79-100) Mean Corpuscular Hemoglobin 29 pg (25-35) Mean Corpuscular Hemoglobin Concent 32 g/dL (31-37) Red Cell Distribution Width 13.8 % (11.5-14.5) Platelet Count 151 x10^3/uL (140-400) Neutrophils (%) (Auto) 64 % (31-73) Lymphocytes (%) (Auto) 26 % (24-48) Monocytes (%) (Auto) 9 % (0-9) Eosinophils (%) (Auto) 2 % (0-3) Basophils (%) (Auto) 1 % (0-3) Neutrophils # (Auto) 2.9 x10^3uL (1.8-7.7) Lymphocytes # (Auto) 1.2 x10^3/uL (1.0-4.8) Monocytes # (Auto) 0.4 x10^3/uL (0.0-1.1) Eosinophils # (Auto) 0.1 x10^3/uL (0.0-0.7) Basophils # (Auto) 0.0 x10^3/uL (0.0-0.2) Medications Active Scripts Medications Dose Route/Sig Max Daily Dose Days Date Category Lasix (Furosemide) 40 Mg Tablet 1 Tab PO DAILY 03/09/15 Rx Gabapentin 300 Mg Capsule 1 Cap PO BID 03/06/15 Reported Coreg (Carvedilol) 6.25 Mg Tablet 1 Tab PO BID 03/06/15 Reported Warfarin Sodium 5 Mg Tablet 7.5 Mg PO QSASU 01/24/15 Reported Hydralazine Hcl 50 Mg Tablet 50 Mg PO BID 01/24/15 Reported NITROGLYCERIN SubLingual (Nitroglycerin) 0.4 Mg Tab.subl 0.4 Mg SL PRN Q5MIN PRN 01/24/15 Reported Anastrozole 1 Mg Tablet 1 Mg PO DAILY 03/10/13 Reported Simvastatin 20 Mg Tablet 20 Mg PO QHS 03/10/13 Reported Klor-Con 10 (Potassium Chloride) 10 Meq Tablet.er 10 Meq PO DAILY 03/10/13 Reported Impression . CONSULT DICTATED, SEE FOR DETAILS BUBBA DENSITY PT WISHES TO PROCEED WITH REPEAT CT IN 2-3 MONTHS ACEOPD THANKS IMPRESSION: Negative study for pulmonary embolus. Underlying emphysematous changes. Small pleural effusions. Nonsolid parenchymal opacity in the left upper lobe more conspicuous than on the previous exam. The etiology is unclear. While this could represent an inflammatory focus neoplastic disease is not excluded. JAREK ROBERTO MD Sep 15, 2016 05:51
[2016-09-15 05:52] LABS: CALCIUM 8.2 mg/dL (8.5-10.1); GFR 64.6; POTASSIUM 3.6 mmol/L (3.5-5.1)
[2016-09-15 07:40] VITALS: BP 120/58
[2016-09-15] MEDS: GABAPENTIN 300 MG CAPSULE. PO SCH ×2 (08:07→20:37)
[2016-09-15] MEDS: POTASSIUM CHLORIDE 20 MEQ TABLET.ER. PO SCH (08:07)
[2016-09-15] MEDS: FUROSEMIDE 40 MG TABLET. PO SCH (08:08)
[2016-09-15] MEDS: CARVEDILOL 12.5 MG TABLET. PO SCH (08:08)
[2016-09-15] MEDS: ANASTROZOLE 1 MG TABLET PO SCH (08:11)
[2016-09-15] MEDS: predniSONE 20 MG TABLET PO SCH (09:17)
--- NOTE | 2016-09-15 10:08 | CONS ---
DATE OF CONSULTATION: 09/15/2016 ATTENDING PHYSICIAN: Dr. Mascorro. DICTATING PHYSICIAN: Jarek Roberto MD REASON FOR CONSULTATION: The patient is seen in pulmonary consultation at the request of Dr. Mascorro for abnormal CT of the chest revealing left upper lobe density, which is increased in size in comparison to previous film. HISTORY OF PRESENT ILLNESS: The patient is an 80-year-old that has multiple medical problems, has underlying cardiomyopathy, ejection fraction 30%, increased shortness of breath over the last 2 weeks. She is normally short of breath. She does not wear oxygen at home. She does not use metered dose inhalers. She quit tobacco in 1998, smoked for 25 years, 1 pack of cigarettes a day, presented with increasing shortness of breath, underwent CT angiogram. CT angiogram revealed several findings. There was no evidence of pulmonary emboli. A CT angiogram was reviewed in comparison to 01/24/2015 revealed no evidence of pulmonary embolism. There was underlying emphysematous changes, small bilateral effusions and parenchymal opacity in the left upper lobe, which appeared to be slightly different in comparison to the previous film. The patient denies hemoptysis. She denies productive cough. Denies any syncope or near syncopal episode. No nausea, vomiting, diarrhea. The patient was experiencing paroxysmal nocturnal dyspnea. No pedal edema. PAST MEDICAL HISTORY: Previous pulmonary embolism. She is on anticoagulation; previous pneumonia; AFib; breast cancer, status post mastectomy. She did not receive any adjuvant chemo or radiation. PAST SURGICAL HISTORY: Status post mastectomy. MEDICATIONS: Home medication list was reviewed. She is on warfarin. No bronchodilators. Current medication list was likewise reviewed. FAMILY HISTORY: No family history of lung cancer. ALLERGIES: No known drug allergies. REVIEW OF SYSTEMS: As indicated above, otherwise, a 10-point system was reviewed and negative. SOCIAL HISTORY: She quit tobacco in 1998. She smoked for 25 years, 1 pack of cigarettes a day. No history of alcoholism. PHYSICAL EXAMINATION: GENERAL: Since admission, she has been afebrile. VITAL SIGNS: She is currently on 2 L of oxygen supplementation, saturation greater than 92%. HEENT: Eyes, the sclerae were nonicteric. NECK: Jugular venous distention was not elevated. No lymphadenopathy. CHEST: Full expansion. LUNGS: Crackles in the bases. No wheezes. CARDIOVASCULAR: Regular rate and rhythm with S1, S2. No S3. ABDOMEN: Soft, nontender, nondistended. EXTREMITIES: No clubbing, cyanosis or edema. LABORATORY DATA: Reviewed. White count was normal. Hemoglobin and hematocrit were noted. Arterial blood gas; pH of 7.45, PaCO2 of 36, pO2 of 65 on room air. INR was 1.6. Electrolytes were noted. BUN and creatinine were normal. Troponin was not elevated. TSH was normal. Albumin upon admission was low at 3.3. BNP was elevated. IMPRESSION: 1. Acute respiratory failure secondary to acute decompensation of systolic, diastolic heart failure. 2. Abnormal CT of the chest as described above, revealing left upper lobe opacity, which is more prominent than it was back on 01/24/2015. 3. Acute exacerbation of chronic obstructive pulmonary disease. 4. History of pulmonary embolism, on anticoagulation. The patient came in with INR . CT angiogram revealed no new clots. 5. Breast cancer, status post mastectomy. 6. Cardiomyopathy, ejection fraction 30%. 7. Chronic atrial fibrillation. PLAN: 1. Review the above findings with the patient. She wishes to proceed with close monitoring with repeat CT of the chest in 3 months, I have informed her that if she changes her mind, we can certainly proceed with fine needle aspiration by Interventional Radiology. 2. Continue to diurese per Cardiology. 3. Continue anticoagulation. 4. No need for antibiotics. 5. Short course of prednisone for acute exacerbation of chronic obstructive pulmonary disease. I do appreciate the privilege in participating in the patient's care. JAREK ROBERTO MD DR: ANASTACIA/meg JOB#: [id number] / [id number]
[2016-09-15 11:00] VITALS: BP 96/60
--- NOTE | 2016-09-15 12:27 | PDOC ---
PROGRESS NOTES Chief Complaint Chief Complaint dyspnea, with multiple factors, including chf, phtn, lung mass? systolic chf exacerbation diastolic chf phtn MR rapid afib htn hld h/o BCa post sx possible lung mass on ct hypokalemia History of Present Illness History of Present Illness feels well on cardizem gtt 5, increased coreg to 12.5bid, lasix 40mg increased to bid repleted K card dr. Hodge, pt has outpatient f/u sched on 09/17 on warfarin, inr daily try to DC tomorrow Vitals Vitals Vital Signs Date Time Temp Pulse Resp B/P (MAP) Pulse Ox O2 Delivery O2 Flow Rate FiO2 09/15/16 11:00 98.0 90 18 96/60 (72) 95 Room Air 98.0 09/15/16 07:34 2.0 Physical Exam General: Alert, Oriented X3, Cooperative, No acute distress Heart: Other (irregularly irregular, tachycardic, S1 and S2) Lungs: Crackles Abdomen: Normal bowel sounds, Soft Extremities: No clubbing, No edema Skin: No rashes Labs LABS Laboratory Tests Test 09/14/16 14:08 09/14/16 14:20 09/14/16 19:55 09/15/16 05:00 Prothrombin Time 18.2 SEC (11.7-14.0) 18.0 SEC (11.7-14.0) Prothromb Time International Ratio 1.6 (0.8-1.1) 1.6 (0.8-1.1) Troponin I Quantitative 0.043 ng/mL (0.000-0.055) 0.045 ng/mL (0.000-0.055) White Blood Count 4.5 x10^3/uL (4.0-11.0) Red Blood Count 4.04 x10^6/uL (3.50-5.40) Hemoglobin 11.9 g/dL (12.0-15.5) Hematocrit 36.6 % (36.0-47.0) Mean Corpuscular Volume 91 fL (79-100) Mean Corpuscular Hemoglobin 29 pg (25-35) Mean Corpuscular Hemoglobin Concent 32 g/dL (31-37) Red Cell Distribution Width 13.8 % (11.5-14.5) Platelet Count 151 x10^3/uL (140-400) Neutrophils (%) (Auto) 64 % (31-73) Lymphocytes (%) (Auto) 26 % (24-48) Monocytes (%) (Auto) 9 % (0-9) Eosinophils (%) (Auto) 2 % (0-3) Basophils (%) (Auto) 1 % (0-3) Neutrophils # (Auto) 2.9 x10^3uL (1.8-7.7) Lymphocytes # (Auto) 1.2 x10^3/uL (1.0-4.8) Monocytes # (Auto) 0.4 x10^3/uL (0.0-1.1) Eosinophils # (Auto) 0.1 x10^3/uL (0.0-0.7) Basophils # (Auto) 0.0 x10^3/uL (0.0-0.2) Sodium Level 144 mmol/L (136-145) Potassium Level 3.6 mmol/L (3.5-5.1) Chloride Level 108 mmol/L (98-107) Carbon Dioxide Level 28 mmol/L (21-32) Anion Gap 8 (6-14) Blood Urea Nitrogen 17 mg/dL (7-20) Creatinine 1.0 mg/dL (0.6-1.0) Estimated GFR (Cockcroft-Gault) 64.6 Glucose Level 101 mg/dL (70-99) Calcium Level 8.2 mg/dL (8.5-10.1) Review of Systems Review of Systems no n.v.d Assessment and Plan Assessmemt and Plan Problems Medical Problems: (1) CHF (congestive heart failure) Status: Acute (2) SOB (shortness of breath) Status: Acute Problems: Comment Review of Relevant I have reviewed the following items bhanu (where applicable) has been applied. Labs Laboratory Tests Test 09/14/16 05:52 09/14/16 07:02 09/14/16 07:10 09/14/16 07:25 Urine Collection Type Unknown Urine Color Yellow Urine Clarity Clear Urine pH 7.0 Urine Specific [place] >=1.030 Urine Protein 30 mg/dL (NEG-TRACE) Urine Glucose (UA) Negative mg/dL (NEG) Urine Ketones (Stick) Negative mg/dL (NEG) Urine Blood Small (NEG) Urine Nitrite Negative (NEG) Urine Bilirubin Negative (NEG) Urine Urobilinogen Dipstick 1.0 mg/dL (0.2 mg/dL) Urine Leukocyte Esterase Negative (NEG) Urine RBC 6-10 /HPF (0-2) Urine WBC 0 /HPF (0-4) Urine Squamous Epithelial Cells Few /LPF Urine Bacteria 0 /HPF (0-FEW) Urine Mucus Slight /LPF O2 Saturation 92 % (92-99) Arterial Blood pH 7.45 (7.35-7.45) Arterial Blood pCO2 at Patient Temp 36 mmHg (35-46) Arterial Blood pO2 at Patient Temp 65 mmHg (65-108) Arterial Blood HCO3 25 mmol/L (21-28) Arterial Blood Base Excess 1 mmol/L (-3-3) Oxyhemoglobin 91.8 % Methemoglobin 0.2 % (0.0-1.9) Carbon Monoxide, Quantitative 0.3 % (0.0-1.9) FiO2 21.0 White Blood Count 5.1 x10^3/uL (4.0-11.0) Red Blood Count 4.32 x10^6/uL (3.50-5.40) Hemoglobin 12.8 g/dL (12.0-15.5) Hematocrit 39.6 % (36.0-47.0) Mean Corpuscular Volume 92 fL (79-100) Mean Corpuscular Hemoglobin 30 pg (25-35) Mean Corpuscular Hemoglobin Concent 32 g/dL (31-37) Red Cell Distribution Width 14.4 % (11.5-14.5) Platelet Count 167 x10^3/uL (140-400) Neutrophils (%) (Auto) 65 % (31-73) Lymphocytes (%) (Auto) 24 % (24-48) Monocytes (%) (Auto) 8 % (0-9) Eosinophils (%) (Auto) 2 % (0-3) Basophils (%) (Auto) 1 % (0-3) Neutrophils # (Auto) 3.4 x10^3uL (1.8-7.7) Lymphocytes # (Auto) 1.2 x10^3/uL (1.0-4.8) Monocytes # (Auto) 0.4 x10^3/uL (0.0-1.1) Eosinophils # (Auto) 0.1 x10^3/uL (0.0-0.7) Basophils # (Auto) 0.0 x10^3/uL (0.0-0.2) Sodium Level 145 mmol/L (136-145) Potassium Level 3.1 mmol/L (3.5-5.1) Chloride Level 110 mmol/L (98-107) Carbon Dioxide Level 25 mmol/L (21-32) Anion Gap 10 (6-14) Blood Urea Nitrogen 15 mg/dL (7-20) Creatinine 0.9 mg/dL (0.6-1.0) Estimated GFR (Cockcroft-Gault) 72.9 Glucose Level 114 mg/dL (70-99) Calcium Level 8.7 mg/dL (8.5-10.1) Magnesium Level 2.1 mg/dL (1.8-2.4) Total Bilirubin 1.1 mg/dL (0.2-1.0) Direct Bilirubin 0.3 mg/dL (0.0-0.2) Aspartate Amino Transf (AST/SGOT) 18 U/L (15-37) Alanine Aminotransferase (ALT/SGPT) 28 U/L (14-59) Alkaline Phosphatase 56 U/L (46-116) Creatine Kinase 67 U/L (26-192) Creatine Kinase MB (Mass) 0.6 ng/mL (0.0-3.6) Creatine Kinase MB Relative Index % (0-4) Troponin I Quantitative 0.043 ng/mL (0.000-0.055) XF-Zbm-R-Type Natriuretic Peptide 9063 pg/mL (0-449) Total Protein 6.3 g/dL (6.4-8.2) Albumin 3.3 g/dL (3.4-5.0) Lipase 161 U/L (73-393) Thyroid Stimulating Hormone (TSH) 2.356 uIU/mL (0.358-3.74) Test 09/14/16 14:08 09/14/16 14:20 09/14/16 19:55 09/15/16 05:00 Prothrombin Time 18.2 SEC (11.7-14.0) 18.0 SEC (11.7-14.0) Prothromb Time International Ratio 1.6 (0.8-1.1) 1.6 (0.8-1.1) Troponin I Quantitative 0.043 ng/mL (0.000-0.055) 0.045 ng/mL (0.000-0.055) White Blood Count 4.5 x10^3/uL (4.0-11.0) Red Blood Count 4.04 x10^6/uL (3.50-5.40) Hemoglobin 11.9 g/dL (12.0-15.5) Hematocrit 36.6 % (36.0-47.0) Mean Corpuscular Volume 91 fL (79-100) Mean Corpuscular Hemoglobin 29 pg (25-35) Mean Corpuscular Hemoglobin Concent 32 g/dL (31-37) Red Cell Distribution Width 13.8 % (11.5-14.5) Platelet Count 151 x10^3/uL (140-400) Neutrophils (%) (Auto) 64 % (31-73) Lymphocytes (%) (Auto) 26 % (24-48) Monocytes (%) (Auto) 9 % (0-9) Eosinophils (%) (Auto) 2 % (0-3) Basophils (%) (Auto) 1 % (0-3) Neutrophils # (Auto) 2.9 x10^3uL (1.8-7.7) Lymphocytes # (Auto) 1.2 x10^3/uL (1.0-4.8) Monocytes # (Auto) 0.4 x10^3/uL (0.0-1.1) Eosinophils # (Auto) 0.1 x10^3/uL (0.0-0.7) Basophils # (Auto) 0.0 x10^3/uL (0.0-0.2) Sodium Level 144 mmol/L (136-145) Potassium Level 3.6 mmol/L (3.5-5.1) Chloride Level 108 mmol/L (98-107) Carbon Dioxide Level 28 mmol/L (21-32) Anion Gap 8 (6-14) Blood Urea Nitrogen 17 mg/dL (7-20) Creatinine 1.0 mg/dL (0.6-1.0) Estimated GFR (Cockcroft-Gault) 64.6 Glucose Level 101 mg/dL (70-99) Calcium Level 8.2 mg/dL (8.5-10.1) Laboratory Tests Test 09/14/16 14:08 09/14/16 14:20 09/14/16 19:55 09/15/16 05:00 Prothrombin Time 18.2 SEC (11.7-14.0) 18.0 SEC (11.7-14.0) Prothromb Time International Ratio 1.6 (0.8-1.1) 1.6 (0.8-1.1) Troponin I Quantitative 0.043 ng/mL (0.000-0.055) 0.045 ng/mL (0.000-0.055) White Blood Count 4.5 x10^3/uL (4.0-11.0) Red Blood Count 4.04 x10^6/uL (3.50-5.40) Hemoglobin 11.9 g/dL (12.0-15.5) Hematocrit 36.6 % (36.0-47.0) Mean Corpuscular Volume 91 fL (79-100) Mean Corpuscular Hemoglobin 29 pg (25-35) Mean Corpuscular Hemoglobin Concent 32 g/dL (31-37) Red Cell Distribution Width 13.8 % (11.5-14.5) Platelet Count 151 x10^3/uL (140-400) Neutrophils (%) (Auto) 64 % (31-73) Lymphocytes (%) (Auto) 26 % (24-48) Monocytes (%) (Auto) 9 % (0-9) Eosinophils (%) (Auto) 2 % (0-3) Basophils (%) (Auto) 1 % (0-3) Neutrophils # (Auto) 2.9 x10^3uL (1.8-7.7) Lymphocytes # (Auto) 1.2 x10^3/uL (1.0-4.8) Monocytes # (Auto) 0.4 x10^3/uL (0.0-1.1) Eosinophils # (Auto) 0.1 x10^3/uL (0.0-0.7) Basophils # (Auto) 0.0 x10^3/uL (0.0-0.2) Sodium Level 144 mmol/L (136-145) Potassium Level 3.6 mmol/L (3.5-5.1) Chloride Level 108 mmol/L (98-107) Carbon Dioxide Level 28 mmol/L (21-32) Anion Gap 8 (6-14) Blood Urea Nitrogen 17 mg/dL (7-20) Creatinine 1.0 mg/dL (0.6-1.0) Estimated GFR (Cockcroft-Gault) 64.6 Glucose Level 101 mg/dL (70-99) Calcium Level 8.2 mg/dL (8.5-10.1) Medications Current Medications Aspirin (Children'S Aspirin) 324 mg 1X ONCE PO Last administered on 09/14/16 07:45; Start 09/14/16 at 07:15; Stop 09/14/16 at 07:16; Status DC Sodium Chloride (Normal Saline Flush) 10 ml QSHIFT PRN IV AFTER MEDS AND BLOOD DRAWS; Start 09/14/16 at 07:15 Iohexol (Omnipaque 300 Mg/ml) 75 ml 1X ONCE IV Last administered on 09/14/16 08:21; Start 09/14/16 at 07:45; Stop 09/14/16 at 07:46; Status DC Info (Do NOT chart on this entry -- for MONITORING) 1 each PRN DAILY PRN MC SEE COMMENTS; Start 09/14/16 at 07:45; Stop 09/16/16 at 07:44 Furosemide (Lasix) 40 mg 1X ONCE IVP Last administered on 09/14/16 09:19; Start 09/14/16 at 09:15; Stop 09/14/16 at 09:16; Status DC Nitroglycerin (Nitrostat) 0.4 mg PRN Q5MIN PRN SL CHEST PAIN; Start 09/14/16 at 09:15 Ondansetron HCl (Zofran) 4 mg PRN Q8HRS PRN IV NAUSEA/VOMITING; Start 09/14/16 at 09:30; Stop 09/15/16 at 09:29; Status DC Acetaminophen (Tylenol) 650 mg PRN Q4HRS PRN PO FEVER; Start 09/14/16 at 09:30; Stop 09/15/16 at 09:29; Status DC Potassium Chloride (Klor-Con) 40 meq 1X ONCE PO Last administered on 09/14/16 10:54; Start 09/14/16 at 10:45; Stop 09/14/16 at 10:46; Status DC Potassium Chloride (Klor-Con) 40 meq 1X ONCE PO ; Start 09/14/16 at 11:00; Stop 09/14/16 at 11:00; Status DC Magnesium Sulfate/ Dextrose 50 ml @ 25 mls/hr PRN DAILY PRN IV FOR MAGNESIUM LEVEL 1.7 MEQ/L; Start 09/14/16 at 10:45; Stop 09/16/16 at 09:01 Potassium Chloride (KCl Oral Soln) 40 meq PRN Q4HRS PRN PO FOR POTASSIUM LEVEL 3.0 MEQ/L; Start 09/14/16 at 10:45 Potassium Chloride (Klor-Con) 40 meq PRN 1X PRN PO FOR POTASSIUM LEVEL 3.1-3.5 ; Start 09/14/16 at 10:45 Anastrozole (Arimidex) 1 mg DAILY PO Last administered on 09/15/16 08:11; Start 09/14/16 at 13:30 Carvedilol (Coreg) 6.25 mg BIDWMEALS PO ; Start 09/14/16 at 17:00; Stop 09/14/16 at 17:00; Status DC Furosemide (Lasix) 40 mg DAILY PO Last administered on 09/14/16 15:15; Start at 12:30; Stop 09/14/16 at 16:01; Status DC Hydralazine HCl (Apresoline) 50 mg BID PO Last administered on 09/14/16 21:41; Start 09/14/16 at 13:30; Stop 09/15/16 at 11:26; Status DC Nitroglycerin (Nitrostat) 0.4 mg PRN Q5MIN PRN SL CHEST PAIN; Start 09/14/16 at 12:45 Simvastatin (Zocor) 20 mg QHS PO Last administered on 09/14/16 21:41; Start 09/14/16 at 21:00 Warfarin Sodium (Coumadin) 7.5 mg DAILY16 PO Last administered on 09/14/16 15: 16; Start 09/14/16 at 16:00; Stop 09/15/16 at 10:59; Status DC Gabapentin (Neurontin) 300 mg BID PO Last administered on 09/15/16 08:07; Start 09/14/16 at 13:30 Potassium Chloride (Klor-Con) 10 meq DAILYWBKFT PO Last administered on 15:14; Start 09/14/16 at 13:30; Stop 09/14/16 at 16:01; Status DC Diltiazem HCl 125 mg/Dextrose 125 ml @ 0 mls/hr CONT PRN IV SEE I/O RECORD Last administered on 09/14/16 13:04; Start 09/14/16 at 12:45; Stop 09/15/16 at 11: 26; Status DC Diltiazem HCl (Cardizem) 10 mg 1X ONCE IVP Last administered on 09/14/16 13:01 ; Start 09/14/16 at 12:45; Stop 09/14/16 at 12:47; Status DC Warfarin Sodium (Coumadin Per Physician) 1 each PRN DAILY PRN MC SEE COMMENTS; Start 09/14/16 at 14:45; Stop 09/14/16 at 16:01; Status DC Carvedilol (Coreg) 12.5 mg BIDWMEALS PO Last administered on 09/15/16 08:08; Start 09/14/16 at 17:00 Furosemide (Lasix) 40 mg BID PO Last administered on 09/15/16 08:08; Start 09/14 at 21:00 Potassium Chloride (Klor-Con) 20 meq DAILYWBKFT PO Last administered on 08:07; Start 09/15/16 at 08:00 Warfarin Sodium (Coumadin Per Pharmacy) 1 each PRN DAILY PRN MC SEE COMMENTS Last administered on 09/15/16 11:02; Start 09/14/16 at 16:00 Acetaminophen (Tylenol) 650 mg PRN Q6HRS PRN PO FEVER; Start 09/14/16 at 16:00 Ondansetron HCl (Zofran) 4 mg PRN Q6HRS PRN IV NAUSEA/VOMITING; Start 09/14/16 at 16:00 Morphine Sulfate 2 mg PRN Q2HR PRN IV PAIN; Start 09/14/16 at 16:00 Tramadol HCl (Ultram) 50 mg PRN Q6HRS PRN PO PAIN; Start 09/14/16 at 16:00 Hydralazine HCl (Apresoline) 10 mg PRN Q4HRS PRN IVP ELEVATED BP, SEE COMMENTS ; Start 09/14/16 at 16:00 Docusate Sodium (Colace) 100 mg PRN DAILY PRN PO CONSTIPATION; Start 09/14/16 at 16:00 Metoprolol Tartrate (Lopressor) 5 mg PRN Q4HRS PRN IVP HR/BP; Start 09/14/16 at 18:45 Prednisone (Prednisone) 20 mg DAILY PO Last administered on 09/15/16t 09:17; Start 09/15/16 at 09:00 Warfarin Sodium (Coumadin) 9 mg 1X WARF ONCE PO ; Start 09/15/16 at 16:00; Stop 09/15/16 at 16:01 Albuterol/ Ipratropium (Duoneb) 3 ml RTQID NEB ; Start 09/15/16 at 12:00 Budesonide (Pulmicort) 0.5 mg RTBID NEB ; Start 09/15/16 at 20:00 Active Scripts Active Lasix (Furosemide) 40 Mg Tablet 1 Tab PO DAILY Reported Gabapentin 300 Mg Capsule 1 Cap PO BID Coreg (Carvedilol) 6.25 Mg Tablet 1 Tab PO BID Warfarin Sodium 5 Mg Tablet 7.5 Mg PO QSASU Hydralazine Hcl 50 Mg Tablet 50 Mg PO BID NITROGLYCERIN SubLingual (Nitroglycerin) 0.4 Mg Tab.subl 0.4 Mg SL PRN Q5MIN PRN Anastrozole 1 Mg Tablet 1 Mg PO DAILY Simvastatin 20 Mg Tablet 20 Mg PO QHS Klor-Con 10 (Potassium Chloride) 10 Meq Tablet.er 10 Meq PO DAILY Vitals/I & O Vital Sign - Last 24 Hours 09/14/16 09/14/16 09/14/16 09/14/16 13:01 15:00 15:59 17:18 Temp 98.1 98.1 Pulse 120 75 120 Resp 14 B/P (MAP) 128/75 108/58 (75) 150/95 Pulse Ox 98 O2 Delivery Room Air Room Air 09/14/16 09/14/16 09/14/16 09/14/16 19:05 20:40 21:41 23:37 Temp 97.9 97.7 97.9 97.7 Pulse 106 106 109 Resp 24 24 B/P (MAP) 121/78 (92) 121/78 109/75 (86) Pulse Ox 95 100 O2 Delivery Room Air Room Air Nasal Cannula O2 Flow Rate 2.0 09/15/16 09/15/16 09/15/16 09/15/16 03:15 07:34 07:40 08:08 Temp 97.7 97.9 97.7 97.9 Pulse 111 92 98 Resp 22 18 B/P (MAP) 111/67 (82) 120/58 (78) 138/83 Pulse Ox 100 96 O2 Delivery Nasal Cannula Nasal Cannula Room Air O2 Flow Rate 2.0 2.0 09/15/16 09/15/16 09:00 11:00 Temp 98.0 98.0 Pulse 71 90 Resp 18 B/P (MAP) 83/45 96/60 (72) Pulse Ox 95 O2 Delivery Room Air Intake and Output 09/14/16 09/14/16 09/15/16 15:00 23:00 07:00 Intake Total 1000 ml 150 ml Output Total 900 ml Balance 100 ml 150 ml ZINA RUDOLPH MD Sep 15, 2016 12:27
[2016-09-15 15:00] VITALS: BP 117/70
--- NOTE | 2016-09-15 15:19 | PDOC ---
PROGRESS NOTES Subjective Subjective Pt feels better Rhythm is slower today. BP labile Objective Objective Vital Signs Date Time Temp Pulse Resp B/P (MAP) Pulse Ox O2 Delivery O2 Flow Rate FiO2 09/15/16 11:00 98.0 90 18 96/60 (72) 95 Room Air 98.0 09/15/16 07:34 2.0 Intake and Output 09/15/16 07:00 Intake Total 1150 ml Output Total 900 ml Balance 250 ml Intake Oral 1150 ml Output Urine Total 900 ml # Voids 3 Physical Exam Physical Exam No significant changes in cardiac exam Assessment Assessment Pt improving. Will decrease the BP meds. Home soon Comment Review of Relevant I have reviewed the following items bhanu (where applicable) has been applied. Labs Laboratory Tests Test 09/14/16 05:52 09/14/16 07:02 09/14/16 07:10 09/14/16 07:25 Urine Collection Type Unknown Urine Color Yellow Urine Clarity Clear Urine pH 7.0 Urine Specific [place] >=1.030 Urine Protein 30 mg/dL (NEG-TRACE) Urine Glucose (UA) Negative mg/dL (NEG) Urine Ketones (Stick) Negative mg/dL (NEG) Urine Blood Small (NEG) Urine Nitrite Negative (NEG) Urine Bilirubin Negative (NEG) Urine Urobilinogen Dipstick 1.0 mg/dL (0.2 mg/dL) Urine Leukocyte Esterase Negative (NEG) Urine RBC 6-10 /HPF (0-2) Urine WBC 0 /HPF (0-4) Urine Squamous Epithelial Cells Few /LPF Urine Bacteria 0 /HPF (0-FEW) Urine Mucus Slight /LPF O2 Saturation 92 % (92-99) Arterial Blood pH 7.45 (7.35-7.45) Arterial Blood pCO2 at Patient Temp 36 mmHg (35-46) Arterial Blood pO2 at Patient Temp 65 mmHg (65-108) Arterial Blood HCO3 25 mmol/L (21-28) Arterial Blood Base Excess 1 mmol/L (-3-3) Oxyhemoglobin 91.8 % Methemoglobin 0.2 % (0.0-1.9) Carbon Monoxide, Quantitative 0.3 % (0.0-1.9) FiO2 21.0 White Blood Count 5.1 x10^3/uL (4.0-11.0) Red Blood Count 4.32 x10^6/uL (3.50-5.40) Hemoglobin 12.8 g/dL (12.0-15.5) Hematocrit 39.6 % (36.0-47.0) Mean Corpuscular Volume 92 fL (79-100) Mean Corpuscular Hemoglobin 30 pg (25-35) Mean Corpuscular Hemoglobin Concent 32 g/dL (31-37) Red Cell Distribution Width 14.4 % (11.5-14.5) Platelet Count 167 x10^3/uL (140-400) Neutrophils (%) (Auto) 65 % (31-73) Lymphocytes (%) (Auto) 24 % (24-48) Monocytes (%) (Auto) 8 % (0-9) Eosinophils (%) (Auto) 2 % (0-3) Basophils (%) (Auto) 1 % (0-3) Neutrophils # (Auto) 3.4 x10^3uL (1.8-7.7) Lymphocytes # (Auto) 1.2 x10^3/uL (1.0-4.8) Monocytes # (Auto) 0.4 x10^3/uL (0.0-1.1) Eosinophils # (Auto) 0.1 x10^3/uL (0.0-0.7) Basophils # (Auto) 0.0 x10^3/uL (0.0-0.2) Sodium Level 145 mmol/L (136-145) Potassium Level 3.1 mmol/L (3.5-5.1) Chloride Level 110 mmol/L (98-107) Carbon Dioxide Level 25 mmol/L (21-32) Anion Gap 10 (6-14) Blood Urea Nitrogen 15 mg/dL (7-20) Creatinine 0.9 mg/dL (0.6-1.0) Estimated GFR (Cockcroft-Gault) 72.9 Glucose Level 114 mg/dL (70-99) Calcium Level 8.7 mg/dL (8.5-10.1) Magnesium Level 2.1 mg/dL (1.8-2.4) Total Bilirubin 1.1 mg/dL (0.2-1.0) Direct Bilirubin 0.3 mg/dL (0.0-0.2) Aspartate Amino Transf (AST/SGOT) 18 U/L (15-37) Alanine Aminotransferase (ALT/SGPT) 28 U/L (14-59) Alkaline Phosphatase 56 U/L (46-116) Creatine Kinase 67 U/L (26-192) Creatine Kinase MB (Mass) 0.6 ng/mL (0.0-3.6) Creatine Kinase MB Relative Index % (0-4) Troponin I Quantitative 0.043 ng/mL (0.000-0.055) TT-Qlb-O-Type Natriuretic Peptide 9063 pg/mL (0-449) Total Protein 6.3 g/dL (6.4-8.2) Albumin 3.3 g/dL (3.4-5.0) Lipase 161 U/L (73-393) Thyroid Stimulating Hormone (TSH) 2.356 uIU/mL (0.358-3.74) Test 09/14/16 14:08 09/14/16 14:20 09/14/16 19:55 09/15/16 05:00 Prothrombin Time 18.2 SEC (11.7-14.0) 18.0 SEC (11.7-14.0) Prothromb Time International Ratio 1.6 (0.8-1.1) 1.6 (0.8-1.1) Troponin I Quantitative 0.043 ng/mL (0.000-0.055) 0.045 ng/mL (0.000-0.055) White Blood Count 4.5 x10^3/uL (4.0-11.0) Red Blood Count 4.04 x10^6/uL (3.50-5.40) Hemoglobin 11.9 g/dL (12.0-15.5) Hematocrit 36.6 % (36.0-47.0) Mean Corpuscular Volume 91 fL (79-100) Mean Corpuscular Hemoglobin 29 pg (25-35) Mean Corpuscular Hemoglobin Concent 32 g/dL (31-37) Red Cell Distribution Width 13.8 % (11.5-14.5) Platelet Count 151 x10^3/uL (140-400) Neutrophils (%) (Auto) 64 % (31-73) Lymphocytes (%) (Auto) 26 % (24-48) Monocytes (%) (Auto) 9 % (0-9) Eosinophils (%) (Auto) 2 % (0-3) Basophils (%) (Auto) 1 % (0-3) Neutrophils # (Auto) 2.9 x10^3uL (1.8-7.7) Lymphocytes # (Auto) 1.2 x10^3/uL (1.0-4.8) Monocytes # (Auto) 0.4 x10^3/uL (0.0-1.1) Eosinophils # (Auto) 0.1 x10^3/uL (0.0-0.7) Basophils # (Auto) 0.0 x10^3/uL (0.0-0.2) Sodium Level 144 mmol/L (136-145) Potassium Level 3.6 mmol/L (3.5-5.1) Chloride Level 108 mmol/L (98-107) Carbon Dioxide Level 28 mmol/L (21-32) Anion Gap 8 (6-14) Blood Urea Nitrogen 17 mg/dL (7-20) Creatinine 1.0 mg/dL (0.6-1.0) Estimated GFR (Cockcroft-Gault) 64.6 Glucose Level 101 mg/dL (70-99) Calcium Level 8.2 mg/dL (8.5-10.1) Laboratory Tests Test 09/14/16 19:55 09/15/16 05:00 Troponin I Quantitative 0.045 ng/mL (0.000-0.055) White Blood Count 4.5 x10^3/uL (4.0-11.0) Red Blood Count 4.04 x10^6/uL (3.50-5.40) Hemoglobin 11.9 g/dL (12.0-15.5) Hematocrit 36.6 % (36.0-47.0) Mean Corpuscular Volume 91 fL (79-100) Mean Corpuscular Hemoglobin 29 pg (25-35) Mean Corpuscular Hemoglobin Concent 32 g/dL (31-37) Red Cell Distribution Width 13.8 % (11.5-14.5) Platelet Count 151 x10^3/uL (140-400) Neutrophils (%) (Auto) 64 % (31-73) Lymphocytes (%) (Auto) 26 % (24-48) Monocytes (%) (Auto) 9 % (0-9) Eosinophils (%) (Auto) 2 % (0-3) Basophils (%) (Auto) 1 % (0-3) Neutrophils # (Auto) 2.9 x10^3uL (1.8-7.7) Lymphocytes # (Auto) 1.2 x10^3/uL (1.0-4.8) Monocytes # (Auto) 0.4 x10^3/uL (0.0-1.1) Eosinophils # (Auto) 0.1 x10^3/uL (0.0-0.7) Basophils # (Auto) 0.0 x10^3/uL (0.0-0.2) Prothrombin Time 18.0 SEC (11.7-14.0) Prothromb Time International Ratio 1.6 (0.8-1.1) Sodium Level 144 mmol/L (136-145) Potassium Level 3.6 mmol/L (3.5-5.1) Chloride Level 108 mmol/L (98-107) Carbon Dioxide Level 28 mmol/L (21-32) Anion Gap 8 (6-14) Blood Urea Nitrogen 17 mg/dL (7-20) Creatinine 1.0 mg/dL (0.6-1.0) Estimated GFR (Cockcroft-Gault) 64.6 Glucose Level 101 mg/dL (70-99) Calcium Level 8.2 mg/dL (8.5-10.1) Medications Current Medications Aspirin (Children'S Aspirin) 324 mg 1X ONCE PO Last administered on 09/14/16 07:45; Start 09/14/16 at 07:15; Stop 09/14/16 at 07:16; Status DC Sodium Chloride (Normal Saline Flush) 10 ml QSHIFT PRN IV AFTER MEDS AND BLOOD DRAWS; Start 09/14/16 at 07:15 Iohexol (Omnipaque 300 Mg/ml) 75 ml 1X ONCE IV Last administered on 09/14/16 08:21; Start 09/14/16 at 07:45; Stop 09/14/16 at 07:46; Status DC Info (Do NOT chart on this entry -- for MONITORING) 1 each PRN DAILY PRN MC SEE COMMENTS; Start 09/14/16 at 07:45; Stop 09/16/16 at 07:44 Furosemide (Lasix) 40 mg 1X ONCE IVP Last administered on 09/14/16 09:19; Start 09/14/16 at 09:15; Stop 09/14/16 at 09:16; Status DC Nitroglycerin (Nitrostat) 0.4 mg PRN Q5MIN PRN SL CHEST PAIN; Start 09/14/16 at 09:15 Ondansetron HCl (Zofran) 4 mg PRN Q8HRS PRN IV NAUSEA/VOMITING; Start 09/14/16 at 09:30; Stop 09/15/16 at 09:29; Status DC Acetaminophen (Tylenol) 650 mg PRN Q4HRS PRN PO FEVER; Start 09/14/16 at 09:30; Stop 09/15/16 at 09:29; Status DC Potassium Chloride (Klor-Con) 40 meq 1X ONCE PO Last administered on 09/14/16 10:54; Start 09/14/16 at 10:45; Stop 09/14/16 at 10:46; Status DC Potassium Chloride (Klor-Con) 40 meq 1X ONCE PO ; Start 09/14/16 at 11:00; Stop 09/14/16 at 11:00; Status DC Magnesium Sulfate/ Dextrose 50 ml @ 25 mls/hr PRN DAILY PRN IV FOR MAGNESIUM LEVEL 1.7 MEQ/L; Start 09/14/16 at 10:45; Stop 09/16/16 at 09:01 Potassium Chloride (KCl Oral Soln) 40 meq PRN Q4HRS PRN PO FOR POTASSIUM LEVEL 3.0 MEQ/L; Start 09/14/16 at 10:45 Potassium Chloride (Klor-Con) 40 meq PRN 1X PRN PO FOR POTASSIUM LEVEL 3.1-3.5 ; Start 09/14/16 at 10:45 Anastrozole (Arimidex) 1 mg DAILY PO Last administered on 09/15/16 08:11; Start 09/14/16 at 13:30 Carvedilol (Coreg) 6.25 mg BIDWMEALS PO ; Start 09/14/16 at 17:00; Stop 09/14/16 at 17:00; Status DC Furosemide (Lasix) 40 mg DAILY PO Last administered on 09/14/16 15:15; Start at 12:30; Stop 09/14/16 at 16:01; Status DC Hydralazine HCl (Apresoline) 50 mg BID PO Last administered on 09/14/16 21:41; Start 09/14/16 at 13:30; Stop 09/15/16 at 11:26; Status DC Nitroglycerin (Nitrostat) 0.4 mg PRN Q5MIN PRN SL CHEST PAIN; Start 09/14/16 at 12:45 Simvastatin (Zocor) 20 mg QHS PO Last administered on 09/14/16 21:41; Start 09/14/16 at 21:00 Warfarin Sodium (Coumadin) 7.5 mg DAILY16 PO Last administered on 09/14/16 15: 16; Start 09/14/16 at 16:00; Stop 09/15/16 at 10:59; Status DC Gabapentin (Neurontin) 300 mg BID PO Last administered on 09/15/16 08:07; Start 09/14/16 at 13:30 Potassium Chloride (Klor-Con) 10 meq DAILYWBKFT PO Last administered on 15:14; Start 09/14/16 at 13:30; Stop 09/14/16 at 16:01; Status DC Diltiazem HCl 125 mg/Dextrose 125 ml @ 0 mls/hr CONT PRN IV SEE I/O RECORD Last administered on 09/14/16 13:04; Start 09/14/16 at 12:45; Stop 09/15/16 at 11: 26; Status DC Diltiazem HCl (Cardizem) 10 mg 1X ONCE IVP Last administered on 09/14/16 13:01 ; Start 09/14/16 at 12:45; Stop 09/14/16 at 12:47; Status DC Warfarin Sodium (Coumadin Per Physician) 1 each PRN DAILY PRN MC SEE COMMENTS; Start 09/14/16 at 14:45; Stop 09/14/16 at 16:01; Status DC Carvedilol (Coreg) 12.5 mg BIDWMEALS PO Last administered on 09/15/16 08:08; Start 09/14/16 at 17:00; Stop 09/15/16 at 15:03; Status DC Furosemide (Lasix) 40 mg BID PO Last administered on 09/15/16 08:08; Start 09/14 at 21:00; Stop 09/15/16 at 15:04; Status DC Potassium Chloride (Klor-Con) 20 meq DAILYWBKFT PO Last administered on 08:07; Start 09/15/16 at 08:00 Warfarin Sodium (Coumadin Per Pharmacy) 1 each PRN DAILY PRN MC SEE COMMENTS Last administered on 09/15/16 11:02; Start 09/14/16 at 16:00 Acetaminophen (Tylenol) 650 mg PRN Q6HRS PRN PO FEVER; Start 09/14/16 at 16:00 Ondansetron HCl (Zofran) 4 mg PRN Q6HRS PRN IV NAUSEA/VOMITING; Start 09/14/16 at 16:00 Morphine Sulfate 2 mg PRN Q2HR PRN IV PAIN; Start 09/14/16 at 16:00 Tramadol HCl (Ultram) 50 mg PRN Q6HRS PRN PO PAIN; Start 09/14/16 at 16:00 Hydralazine HCl (Apresoline) 10 mg PRN Q4HRS PRN IVP ELEVATED BP, SEE COMMENTS ; Start 09/14/16 at 16:00 Docusate Sodium (Colace) 100 mg PRN DAILY PRN PO CONSTIPATION; Start 09/14/16 at 16:00 Metoprolol Tartrate (Lopressor) 5 mg PRN Q4HRS PRN IVP HR/BP; Start 09/14/16 at 18:45 Prednisone (Prednisone) 20 mg DAILY PO Last administered on 09/15/16 09:17; Start 09/15/16 at 09:00 Warfarin Sodium (Coumadin) 9 mg 1X WARF ONCE PO ; Start 09/15/16 at 16:00; Stop 09/15/16 at 16:01 Albuterol/ Ipratropium (Duoneb) 3 ml RTQID NEB ; Start 09/15/16 at 12:00 Budesonide (Pulmicort) 0.5 mg RTBID NEB ; Start 09/15/16 at 20:00 Carvedilol (Coreg) 6.25 mg BIDWMEALS PO ; Start 09/15/16 at 17:00 Active Scripts Active Lasix (Furosemide) 40 Mg Tablet 1 Tab PO DAILY Reported Gabapentin 300 Mg Capsule 1 Cap PO BID Coreg (Carvedilol) 6.25 Mg Tablet 1 Tab PO BID Warfarin Sodium 5 Mg Tablet 7.5 Mg PO QSASU Hydralazine Hcl 50 Mg Tablet 50 Mg PO BID NITROGLYCERIN SubLingual (Nitroglycerin) 0.4 Mg Tab.subl 0.4 Mg SL PRN Q5MIN PRN Anastrozole 1 Mg Tablet 1 Mg PO DAILY Simvastatin 20 Mg Tablet 20 Mg PO QHS Klor-Con 10 (Potassium Chloride) 10 Meq Tablet.er 10 Meq PO DAILY Vitals/I & O Vital Sign - Last 24 Hours 09/14/16 09/14/16 09/14/16 09/14/16 15:59 17:18 19:05 20:40 Temp 97.9 97.9 Pulse 120 106 Resp 24 B/P (MAP) 150/95 121/78 (92) Pulse Ox 95 O2 Delivery Room Air Room Air Room Air 09/14/16 09/14/16 09/15/16 09/15/16 21:41 23:37 03:15 07:34 Temp 97.7 97.7 97.7 97.7 Pulse 106 109 111 Resp 24 22 B/P (MAP) 121/78 109/75 (86) 111/67 (82) Pulse Ox 100 100 O2 Delivery Nasal Cannula Nasal Cannula Nasal Cannula O2 Flow Rate 2.0 2.0 2.0 09/15/16 09/15/16 09/15/16 09/15/16 07:40 08:08 09:00 11:00 Temp 97.9 98.0 97.9 98.0 Pulse 92 98 71 90 Resp 18 18 B/P (MAP) 120/58 (78) 138/83 83/45 96/60 (72) Pulse Ox 96 95 O2 Delivery Room Air Room Air Intake and Output 09/14/16 09/14/16 09/15/16 15:00 23:00 07:00 Intake Total 1000 ml 150 ml Output Total 900 ml Balance 100 ml 150 ml CATIA HWANG MD Sep 15, 2016 15:18
[2016-09-15] MEDS ORDERED: WARFARIN 3 MG TABLET. PO ONE (16:00)
[2016-09-15] MEDS: IPRATRPIUM/ALBUTEROL 0.5/2.5MG 3 ML NEBU. NEB SCH ×2 (16:19→19:20)
[2016-09-15] MEDS: CARVEDILOL 6.25 MG TABLET. PO SCH (16:42)
[2016-09-15 19:15] VITALS: BP 110/56
[2016-09-15] MEDS: BUDESONIDE 0.5 MG/2 ML NEBU. NEB SCH (19:20)
[2016-09-15] MEDS: SIMVASTATIN 20 MG TABLET PO SCH (20:37)
[2016-09-15 22:40] VITALS: BP 117/60
[2016-09-16 02:45] VITALS: BP 112/77
--- NOTE | 2016-09-16 03:29 | ACF ---
Admission Forms Criteria HEART FAILURE: COMMON COMPLICATIONS (Place 'X' for any and all applicable criteria): Ongoing inpatient care may be indicated for heart failure with 1 or more of the following (1)(2)(3)(4)(5)(6)(7)(8): [ ]I. New-onset heart failure [ ]II. Acute cardiac ischemia causing or associated with failure [ ]III. Ongoing need for care for primary condition requiring frequent therapy adjustments because of changes in cardiac function (eg, drug dosage changes for drugs that are renally metabolized) [X ]IV. Complications of heart failure, including 1 or more of the following: [ ]a) Hemodynamic instability [ ]b) Pericardial effusion [ ]c) Symptomatic pleural effusion [ ]d) Hypoxemia [ ]e) Tachypnea [X ]f) Dyspnea [ ]g) Syncope [ ]h) Altered mental status [ ]i) Acute renal insufficiency that is severe (reduction of more than 50% in estimated glomerular filtration rate from baseline) or progressive reduction of more than 25% in estimated glomerular filtration rate from baseline, with creatinine continuing to rise) [ ]j) Debilitating anasarca (eg tissue breakdown with infection, inability to void due to edema) (E) [ ]k) Clinically significant metabolic abnormalities due to heart failure (eg, new-onset metabolic acidosis) Extended stay may be needed until ALL of the following are present (1)(3)(18)(41 )(55) [ ]a) Hemodynamic stability [ ]b) Stable and effective diuretic regimen established (or patient on stable dialysis regimen if in chronic renal failure) [ ]c) Volume status acceptable on oral medication [ ]d) Breathing comfortably at rest [ ]e) Saturation of arterial oxygen greater than 90% or at acceptable baseline [ ]f) Pulmonary edema absent or improved [ ]g) Peripheral or sacral edema absent or improved [ ]h) Renal function stable and manageable at a lower level of care [ ]i) Complications (eg, pleural effusion) resolved or manageable at a lower level of care [ ]g) Patient or caregiver has received written discharge instructions or educational material addressing activity level, diet, discharge medications, follow-up appointment, weight monitoring, and what to do if symptoms worsen.(25)(26) The original [facility] content created by [employer] has been revised. The portions of the content which have been revised are identified through the use of italic text, and [facility] has neither reviewed nor approved the modified material.All other unmodified content is copyright [facility]. Please see references footnoted in the original [facility] edition 2015 Admission Criteria Met?: Yes RADHA HE Sep 16, 2016 03:29
[2016-09-16 04:05] LABS: INR 2.1 (0.8-1.1); PROTHROMBIN TIME PATIENT 22.1 SEC (11.7-14.0)
[2016-09-16 07:00] VITALS: BP 136/92
[2016-09-16] MEDS: BUDESONIDE 0.5 MG/2 ML NEBU. NEB SCH ×2 (08:10→19:06)
[2016-09-16] MEDS: IPRATRPIUM/ALBUTEROL 0.5/2.5MG 3 ML NEBU. NEB SCH ×4 (08:11→19:06)
--- NOTE | 2016-09-16 08:55 | PDOC ---
PROGRESS NOTES Subjective Subjective Pt states that she had a little shortness of breath before breakfast but now feels well. No other complaint at this time. Objective Objective Gen: Pt sitting comfortably on side of her bed eating breakfast. Pt is pleasant and conversational. HEENT: atraumatic Neck: supple; no JVD Card: RRR; tachy, no changes in heart sounds Resp: CTAB Neuro: Pt alert and aware; oriented to person, place and time. Vital Signs Date Time Temp Pulse Resp B/P (MAP) Pulse Ox O2 Delivery O2 Flow Rate FiO2 09/16/16 08:15 96 Room Air 09/16/16 07:00 97.9 113 18 136/92 (107) 97.9 09/15/16 07:34 2.0 Intake and Output 09/16/16 07:00 Intake Total 1220 ml Output Total 250 ml Balance 970 ml Intake Oral 1220 ml Output Urine Total 250 ml Assessment Assessment Problems Medical Problems: (1) CHF (congestive heart failure) Status: Acute (2) SOB (shortness of breath) Status: Acute Continue to monitor pt. Need to have better rate control Comment Review of Relevant I have reviewed the following items bhanu (where applicable) has been applied. Labs Laboratory Tests Test 09/14/16 14:08 09/14/16 14:20 09/14/16 19:55 09/15/16 05:00 Prothrombin Time 18.2 SEC (11.7-14.0) 18.0 SEC (11.7-14.0) Prothromb Time International Ratio 1.6 (0.8-1.1) 1.6 (0.8-1.1) Troponin I Quantitative 0.043 ng/mL (0.000-0.055) 0.045 ng/mL (0.000-0.055) White Blood Count 4.5 x10^3/uL (4.0-11.0) Red Blood Count 4.04 x10^6/uL (3.50-5.40) Hemoglobin 11.9 g/dL (12.0-15.5) Hematocrit 36.6 % (36.0-47.0) Mean Corpuscular Volume 91 fL (79-100) Mean Corpuscular Hemoglobin 29 pg (25-35) Mean Corpuscular Hemoglobin Concent 32 g/dL (31-37) Red Cell Distribution Width 13.8 % (11.5-14.5) Platelet Count 151 x10^3/uL (140-400) Neutrophils (%) (Auto) 64 % (31-73) Lymphocytes (%) (Auto) 26 % (24-48) Monocytes (%) (Auto) 9 % (0-9) Eosinophils (%) (Auto) 2 % (0-3) Basophils (%) (Auto) 1 % (0-3) Neutrophils # (Auto) 2.9 x10^3uL (1.8-7.7) Lymphocytes # (Auto) 1.2 x10^3/uL (1.0-4.8) Monocytes # (Auto) 0.4 x10^3/uL (0.0-1.1) Eosinophils # (Auto) 0.1 x10^3/uL (0.0-0.7) Basophils # (Auto) 0.0 x10^3/uL (0.0-0.2) Sodium Level 144 mmol/L (136-145) Potassium Level 3.6 mmol/L (3.5-5.1) Chloride Level 108 mmol/L (98-107) Carbon Dioxide Level 28 mmol/L (21-32) Anion Gap 8 (6-14) Blood Urea Nitrogen 17 mg/dL (7-20) Creatinine 1.0 mg/dL (0.6-1.0) Estimated GFR (Cockcroft-Gault) 64.6 Glucose Level 101 mg/dL (70-99) Calcium Level 8.2 mg/dL (8.5-10.1) Test 09/16/16 02:40 Prothrombin Time 22.1 SEC (11.7-14.0) Prothromb Time International Ratio 2.1 (0.8-1.1) Laboratory Tests Test 09/16/16 02:40 Prothrombin Time 22.1 SEC (11.7-14.0) Prothromb Time International Ratio 2.1 (0.8-1.1) Medications Current Medications Aspirin (Children'S Aspirin) 324 mg 1X ONCE PO Last administered on 09/14/16t 07:45; Start 09/14/16 at 07:15; Stop 09/14/16 at 07:16; Status DC Sodium Chloride (Normal Saline Flush) 10 ml QSHIFT PRN IV AFTER MEDS AND BLOOD DRAWS; Start 09/14/16 at 07:15 Iohexol (Omnipaque 300 Mg/ml) 75 ml 1X ONCE IV Last administered on 09/14/16 08:21; Start 09/14/16 at 07:45; Stop 09/14/16 at 07:46; Status DC Info (Do NOT chart on this entry -- for MONITORING) 1 each PRN DAILY PRN MC SEE COMMENTS; Start 09/14/16 at 07:45; Stop 09/16/16 at 07:44; Status DC Furosemide (Lasix) 40 mg 1X ONCE IVP Last administered on 09/14/16 09:19; Start 09/14/16 at 09:15; Stop 09/14/16 at 09:16; Status DC Nitroglycerin (Nitrostat) 0.4 mg PRN Q5MIN PRN SL CHEST PAIN; Start 09/14/16 at 09:15 Ondansetron HCl (Zofran) 4 mg PRN Q8HRS PRN IV NAUSEA/VOMITING; Start 09/14/16 at 09:30; Stop 09/15/16 at 09:29; Status DC Acetaminophen (Tylenol) 650 mg PRN Q4HRS PRN PO FEVER; Start 09/14/16 at 09:30; Stop 09/15/16 at 09:29; Status DC Potassium Chloride (Klor-Con) 40 meq 1X ONCE PO Last administered on 09/14/16 10:54; Start 09/14/16 at 10:45; Stop 09/14/16 at 10:46; Status DC Potassium Chloride (Klor-Con) 40 meq 1X ONCE PO ; Start 09/14/16 at 11:00; Stop 09/14/16 at 11:00; Status DC Magnesium Sulfate/ Dextrose 50 ml @ 25 mls/hr PRN DAILY PRN IV FOR MAGNESIUM LEVEL 1.7 MEQ/L; Start 09/14/16 at 10:45; Stop 09/16/16 at 09:01 Potassium Chloride (KCl Oral Soln) 40 meq PRN Q4HRS PRN PO FOR POTASSIUM LEVEL 3.0 MEQ/L; Start 09/14/16 at 10:45 Potassium Chloride (Klor-Con) 40 meq PRN 1X PRN PO FOR POTASSIUM LEVEL 3.1-3.5 ; Start 09/14/16 at 10:45 Anastrozole (Arimidex) 1 mg DAILY PO Last administered on 09/15/16 08:11; Start 09/14/16 at 13:30 Carvedilol (Coreg) 6.25 mg BIDWMEALS PO ; Start 09/14/16 at 17:00; Stop 09/14/16 at 17:00; Status DC Furosemide (Lasix) 40 mg DAILY PO Last administered on 09/14/16 15:15; Start at 12:30; Stop 09/14/16 at 16:01; Status DC Hydralazine HCl (Apresoline) 50 mg BID PO Last administered on 09/14/16 21:41; Start 09/14/16 at 13:30; Stop 09/15/16 at 11:26; Status DC Nitroglycerin (Nitrostat) 0.4 mg PRN Q5MIN PRN SL CHEST PAIN; Start 09/14/16 at 12:45 Simvastatin (Zocor) 20 mg QHS PO Last administered on 09/15/16 20:37; Start 09/14/16 at 21:00 Warfarin Sodium (Coumadin) 7.5 mg DAILY16 PO Last administered on 09/14/16 15: 16; Start 09/14/16 at 16:00; Stop 09/15/16 at 10:59; Status DC Gabapentin (Neurontin) 300 mg BID PO Last administered on 09/15/16 20:37; Start 09/14/16 at 13:30 Potassium Chloride (Klor-Con) 10 meq DAILYWBKFT PO Last administered on 15:14; Start 09/14/16 at 13:30; Stop 09/14/16 at 16:01; Status DC Diltiazem HCl 125 mg/Dextrose 125 ml @ 0 mls/hr CONT PRN IV SEE I/O RECORD Last administered on 09/14/16 13:04; Start 09/14/16 at 12:45; Stop 09/15/16 at 11: 26; Status DC Diltiazem HCl (Cardizem) 10 mg 1X ONCE IVP Last administered on 09/14/16 13:01 ; Start 09/14/16 at 12:45; Stop 09/14/16 at 12:47; Status DC Warfarin Sodium (Coumadin Per Physician) 1 each PRN DAILY PRN MC SEE COMMENTS; Start 09/14/16 at 14:45; Stop 09/14/16 at 16:01; Status DC Carvedilol (Coreg) 12.5 mg BIDWMEALS PO Last administered on 09/15/16 08:08; Start 09/14/16 at 17:00; Stop 09/15/16 at 15:03; Status DC Furosemide (Lasix) 40 mg BID PO Last administered on 09/15/16 08:08; Start 09/14 at 21:00; Stop 09/15/16 at 15:04; Status DC Potassium Chloride (Klor-Con) 20 meq DAILYWBKFT PO Last administered on 08:07; Start 09/15/16 at 08:00 Warfarin Sodium (Coumadin Per Pharmacy) 1 each PRN DAILY PRN MC SEE COMMENTS Last administered on 09/15/16 11:02; Start 09/14/16 at 16:00 Acetaminophen (Tylenol) 650 mg PRN Q6HRS PRN PO FEVER; Start 09/14/16 at 16:00 Ondansetron HCl (Zofran) 4 mg PRN Q6HRS PRN IV NAUSEA/VOMITING; Start 09/14/16 at 16:00 Morphine Sulfate 2 mg PRN Q2HR PRN IV PAIN; Start 09/14/16 at 16:00 Tramadol HCl (Ultram) 50 mg PRN Q6HRS PRN PO PAIN; Start 09/14/16 at 16:00 Hydralazine HCl (Apresoline) 10 mg PRN Q4HRS PRN IVP ELEVATED BP, SEE COMMENTS ; Start 09/14/16 at 16:00 Docusate Sodium (Colace) 100 mg PRN DAILY PRN PO CONSTIPATION; Start 09/14/16 at 16:00 Metoprolol Tartrate (Lopressor) 5 mg PRN Q4HRS PRN IVP HR/BP; Start 09/14/16 at 18:45 Prednisone (Prednisone) 20 mg DAILY PO Last administered on 09/15/16 09:17; Start 09/15/16 at 09:00 Warfarin Sodium (Coumadin) 9 mg 1X WARF ONCE PO Last administered on 09/15/16 16:42; Start 09/15/16 at 16:00; Stop 09/15/16 at 16:01; Status DC Albuterol/ Ipratropium (Duoneb) 3 ml RTQID NEB Last administered on 09/16/16 08 :11; Start 09/15/16 at 12:00 Budesonide (Pulmicort) 0.5 mg RTBID NEB Last administered on 09/16/16 08:10; Start 09/15/16 at 20:00 Carvedilol (Coreg) 6.25 mg BIDWMEALS PO Last administered on 09/15/16 16:42; Start 09/15/16 at 17:00 Active Scripts Active Lasix (Furosemide) 40 Mg Tablet 1 Tab PO DAILY Reported Gabapentin 300 Mg Capsule 1 Cap PO BID Coreg (Carvedilol) 6.25 Mg Tablet 1 Tab PO BID Warfarin Sodium 5 Mg Tablet 7.5 Mg PO QSASU Hydralazine Hcl 50 Mg Tablet 50 Mg PO BID NITROGLYCERIN SubLingual (Nitroglycerin) 0.4 Mg Tab.subl 0.4 Mg SL PRN Q5MIN PRN Anastrozole 1 Mg Tablet 1 Mg PO DAILY Simvastatin 20 Mg Tablet 20 Mg PO QHS Klor-Con 10 (Potassium Chloride) 10 Meq Tablet.er 10 Meq PO DAILY Vitals/I & O Vital Sign - Last 24 Hours 09/15/16 09/15/16 09/15/16 09/15/16 09:00 11:00 15:00 16:22 Temp 98.0 98.2 98.0 98.2 Pulse 71 90 116 Resp 18 18 B/P (MAP) 83/45 96/60 (72) 117/70 (86) Pulse Ox 95 94 94 O2 Delivery Room Air Room Air Room Air 09/15/16 09/15/16 09/15/16 09/15/16 16:42 19:15 19:23 19:30 Temp 98.0 98.0 Pulse 112 115 Resp 20 B/P (MAP) 149/90 110/56 (74) Pulse Ox 95 96 O2 Delivery Room Air Room Air Room Air 09/15/16 09/16/16 09/16/16 09/16/16 22:40 02:45 07:00 08:00 Temp 98.0 97.7 97.9 98.0 97.7 97.9 Pulse 114 110 113 Resp 18 18 18 B/P (MAP) 117/60 (79) 112/77 (89) 136/92 (107) Pulse Ox 95 97 97 O2 Delivery Room Air Room Air Room Air Room Air 09/16/16 08:15 Pulse Ox 96 O2 Delivery Room Air Intake and Output 09/15/16 09/15/16 09/16/16 15:00 23:00 07:00 Intake Total 240 ml 740 ml 240 ml Output Total 150 ml 100 ml Balance 240 ml 590 ml 140 ml CATIA HWANG MD Sep 16, 2016 08:55
--- NOTE | 2016-09-16 09:26 | PDOC ---
PROGRESS NOTES Chief Complaint Chief Complaint acute diastolic chf exacerbation, AFIB with RVR phtn Mitral regurg htn and hld h/o BCa post sx lung mass on ct hypokalemia History of Present Illness History of Present Illness feels well, but HR still 105-110 at rest, wide fluctations in HR, 65 to 115 at rest, off cardizem gtt 5, increased coreg to 12.5bid yesterday, CV has ordered a decrease due to blood pressure not effective rate control start Dig IV x1, then low dose PO Held lasix today, was 40mg increased to bid repleted K cardiology, Dr. Hodge to see, pt has outpatient f/u sched on 09/17 on warfarin, inr daily Vitals Vitals Vital Signs Date Time Temp Pulse Resp B/P (MAP) Pulse Ox O2 Delivery O2 Flow Rate FiO2 09/16/16 08:15 96 Room Air 09/16/16 07:00 97.9 113 18 136/92 (107) 97.9 09/15/16 07:34 2.0 Physical Exam General: Alert, Oriented X3, Cooperative, No acute distress Heart: Other (irregularly irregular, tachycardic, S1 and S2) Lungs: Crackles Abdomen: Normal bowel sounds, Soft Extremities: No clubbing, No edema Skin: No rashes Labs LABS Laboratory Tests Test 09/16/16 02:40 Prothrombin Time 22.1 SEC (11.7-14.0) Prothromb Time International Ratio 2.1 (0.8-1.1) Review of Systems Review of Systems no n.v.d feels well no current complaint Assessment and Plan Assessmemt and Plan Problems Medical Problems: (1) CHF (congestive heart failure) Status: Acute (2) SOB (shortness of breath) Status: Acute Problems: Comment Review of Relevant I have reviewed the following items bhanu (where applicable) has been applied. Labs Laboratory Tests Test 09/14/16 14:08 09/14/16 14:20 09/14/16 19:55 09/15/16 05:00 Prothrombin Time 18.2 SEC (11.7-14.0) 18.0 SEC (11.7-14.0) Prothromb Time International Ratio 1.6 (0.8-1.1) 1.6 (0.8-1.1) Troponin I Quantitative 0.043 ng/mL (0.000-0.055) 0.045 ng/mL (0.000-0.055) White Blood Count 4.5 x10^3/uL (4.0-11.0) Red Blood Count 4.04 x10^6/uL (3.50-5.40) Hemoglobin 11.9 g/dL (12.0-15.5) Hematocrit 36.6 % (36.0-47.0) Mean Corpuscular Volume 91 fL (79-100) Mean Corpuscular Hemoglobin 29 pg (25-35) Mean Corpuscular Hemoglobin Concent 32 g/dL (31-37) Red Cell Distribution Width 13.8 % (11.5-14.5) Platelet Count 151 x10^3/uL (140-400) Neutrophils (%) (Auto) 64 % (31-73) Lymphocytes (%) (Auto) 26 % (24-48) Monocytes (%) (Auto) 9 % (0-9) Eosinophils (%) (Auto) 2 % (0-3) Basophils (%) (Auto) 1 % (0-3) Neutrophils # (Auto) 2.9 x10^3uL (1.8-7.7) Lymphocytes # (Auto) 1.2 x10^3/uL (1.0-4.8) Monocytes # (Auto) 0.4 x10^3/uL (0.0-1.1) Eosinophils # (Auto) 0.1 x10^3/uL (0.0-0.7) Basophils # (Auto) 0.0 x10^3/uL (0.0-0.2) Sodium Level 144 mmol/L (136-145) Potassium Level 3.6 mmol/L (3.5-5.1) Chloride Level 108 mmol/L (98-107) Carbon Dioxide Level 28 mmol/L (21-32) Anion Gap 8 (6-14) Blood Urea Nitrogen 17 mg/dL (7-20) Creatinine 1.0 mg/dL (0.6-1.0) Estimated GFR (Cockcroft-Gault) 64.6 Glucose Level 101 mg/dL (70-99) Calcium Level 8.2 mg/dL (8.5-10.1) Test 09/16/16 02:40 Prothrombin Time 22.1 SEC (11.7-14.0) Prothromb Time International Ratio 2.1 (0.8-1.1) Laboratory Tests Test 09/16/16 02:40 Prothrombin Time 22.1 SEC (11.7-14.0) Prothromb Time International Ratio 2.1 (0.8-1.1) Medications Current Medications Aspirin (Children'S Aspirin) 324 mg 1X ONCE PO Last administered on 09/14/16 07:45; Start 09/14/16 at 07:15; Stop 09/14/16 at 07:16; Status DC Sodium Chloride (Normal Saline Flush) 10 ml QSHIFT PRN IV AFTER MEDS AND BLOOD DRAWS; Start 09/14/16 at 07:15 Iohexol (Omnipaque 300 Mg/ml) 75 ml 1X ONCE IV Last administered on 09/14/16 08:21; Start 09/14/16 at 07:45; Stop 09/14/16 at 07:46; Status DC Info (Do NOT chart on this entry -- for MONITORING) 1 each PRN DAILY PRN MC SEE COMMENTS; Start 09/14/16 at 07:45; Stop 09/16/16 at 07:44; Status DC Furosemide (Lasix) 40 mg 1X ONCE IVP Last administered on 09/14/16 09:19; Start 09/14/16 at 09:15; Stop 09/14/16 at 09:16; Status DC Nitroglycerin (Nitrostat) 0.4 mg PRN Q5MIN PRN SL CHEST PAIN; Start 09/14/16 at 09:15 Ondansetron HCl (Zofran) 4 mg PRN Q8HRS PRN IV NAUSEA/VOMITING; Start 09/14/16 at 09:30; Stop 09/15/16 at 09:29; Status DC Acetaminophen (Tylenol) 650 mg PRN Q4HRS PRN PO FEVER; Start 09/14/16 at 09:30; Stop 09/15/16 at 09:29; Status DC Potassium Chloride (Klor-Con) 40 meq 1X ONCE PO Last administered on 09/14/16 10:54; Start 09/14/16 at 10:45; Stop 09/14/16 at 10:46; Status DC Potassium Chloride (Klor-Con) 40 meq 1X ONCE PO ; Start 09/14/16 at 11:00; Stop 09/14/16 at 11:00; Status DC Magnesium Sulfate/ Dextrose 50 ml @ 25 mls/hr PRN DAILY PRN IV FOR MAGNESIUM LEVEL 1.7 MEQ/L; Start 09/14/16 at 10:45; Stop 09/16/16 at 09:01; Status DC Potassium Chloride (KCl Oral Soln) 40 meq PRN Q4HRS PRN PO FOR POTASSIUM LEVEL 3.0 MEQ/L; Start 09/14/16 at 10:45 Potassium Chloride (Klor-Con) 40 meq PRN 1X PRN PO FOR POTASSIUM LEVEL 3.1-3.5 ; Start 09/14/16 at 10:45 Anastrozole (Arimidex) 1 mg DAILY PO Last administered on 09/15/16 08:11; Start 09/14/16 at 13:30 Carvedilol (Coreg) 6.25 mg BIDWMEALS PO ; Start 09/14/16 at 17:00; Stop 09/14/16 at 17:00; Status DC Furosemide (Lasix) 40 mg DAILY PO Last administered on 09/14/16 15:15; Start at 12:30; Stop 09/14/16 at 16:01; Status DC Hydralazine HCl (Apresoline) 50 mg BID PO Last administered on 09/14/16 21:41; Start 09/14/16 at 13:30; Stop 09/15/16 at 11:26; Status DC Nitroglycerin (Nitrostat) 0.4 mg PRN Q5MIN PRN SL CHEST PAIN; Start 09/14/16 at 12:45 Simvastatin (Zocor) 20 mg QHS PO Last administered on 09/15/16 20:37; Start 09/14/16 at 21:00 Warfarin Sodium (Coumadin) 7.5 mg DAILY16 PO Last administered on 09/14/16 15: 16; Start 09/14/16 at 16:00; Stop 09/15/16 at 10:59; Status DC Gabapentin (Neurontin) 300 mg BID PO Last administered on 09/15/16 20:37; Start 09/14/16 at 13:30 Potassium Chloride (Klor-Con) 10 meq DAILYWBKFT PO Last administered on 15:14; Start 09/14/16 at 13:30; Stop 09/14/16 at 16:01; Status DC Diltiazem HCl 125 mg/Dextrose 125 ml @ 0 mls/hr CONT PRN IV SEE I/O RECORD Last administered on 09/14/16 13:04; Start 09/14/16 at 12:45; Stop 09/15/16 at 11: 26; Status DC Diltiazem HCl (Cardizem) 10 mg 1X ONCE IVP Last administered on 09/14/16 13:01 ; Start 09/14/16 at 12:45; Stop 09/14/16 at 12:47; Status DC Warfarin Sodium (Coumadin Per Physician) 1 each PRN DAILY PRN MC SEE COMMENTS; Start 09/14/16 at 14:45; Stop 09/14/16 at 16:01; Status DC Carvedilol (Coreg) 12.5 mg BIDWMEALS PO Last administered on 09/15/16 08:08; Start 09/14/16 at 17:00; Stop 09/15/16 at 15:03; Status DC Furosemide (Lasix) 40 mg BID PO Last administered on 09/15/16 08:08; Start 09/14 at 21:00; Stop 09/15/16 at 15:04; Status DC Potassium Chloride (Klor-Con) 20 meq DAILYWBKFT PO Last administered on 08:07; Start 09/15/16 at 08:00 Warfarin Sodium (Coumadin Per Pharmacy) 1 each PRN DAILY PRN MC SEE COMMENTS Last administered on 09/15/16 11:02; Start 09/14/16 at 16:00 Acetaminophen (Tylenol) 650 mg PRN Q6HRS PRN PO FEVER; Start 09/14/16 at 16:00 Ondansetron HCl (Zofran) 4 mg PRN Q6HRS PRN IV NAUSEA/VOMITING; Start 09/14/16 at 16:00 Morphine Sulfate 2 mg PRN Q2HR PRN IV PAIN; Start 09/14/16 at 16:00 Tramadol HCl (Ultram) 50 mg PRN Q6HRS PRN PO PAIN; Start 09/14/16 at 16:00 Hydralazine HCl (Apresoline) 10 mg PRN Q4HRS PRN IVP ELEVATED BP, SEE COMMENTS ; Start 09/14/16 at 16:00 Docusate Sodium (Colace) 100 mg PRN DAILY PRN PO CONSTIPATION; Start 09/14/16 at 16:00 Metoprolol Tartrate (Lopressor) 5 mg PRN Q4HRS PRN IVP HR/BP; Start 09/14/16 at 18:45 Prednisone (Prednisone) 20 mg DAILY PO Last administered on 09/15/16 09:17; Start 09/15/16 at 09:00 Warfarin Sodium (Coumadin) 9 mg 1X WARF ONCE PO Last administered on 09/15/16 16:42; Start 09/15/16 at 16:00; Stop 09/15/16 at 16:01; Status DC Albuterol/ Ipratropium (Duoneb) 3 ml RTQID NEB Last administered on 09/16/16 08 :11; Start 09/15/16 at 12:00 Budesonide (Pulmicort) 0.5 mg RTBID NEB Last administered on 09/16/16 08:10; Start 09/15/16 at 20:00 Carvedilol (Coreg) 6.25 mg BIDWMEALS PO Last administered on 09/15/16 16:42; Start 09/15/16 at 17:00 Digoxin (Lanoxin) 125 mcg DAILY PO ; Start 09/17/16 at 09:00 Digoxin (Lanoxin) 250 mcg 1X ONCE IV ; Start 09/16/16 at 09:30; Stop 09/16/16 at 09:31 Active Scripts Active Lasix (Furosemide) 40 Mg Tablet 1 Tab PO DAILY Reported Gabapentin 300 Mg Capsule 1 Cap PO BID Coreg (Carvedilol) 6.25 Mg Tablet 1 Tab PO BID Warfarin Sodium 5 Mg Tablet 7.5 Mg PO QSASU Hydralazine Hcl 50 Mg Tablet 50 Mg PO BID NITROGLYCERIN SubLingual (Nitroglycerin) 0.4 Mg Tab.subl 0.4 Mg SL PRN Q5MIN PRN Anastrozole 1 Mg Tablet 1 Mg PO DAILY Simvastatin 20 Mg Tablet 20 Mg PO QHS Klor-Con 10 (Potassium Chloride) 10 Meq Tablet.er 10 Meq PO DAILY Vitals/I & O Vital Sign - Last 24 Hours 09/15/16 09/15/16 09/15/16 09/15/16 11:00 15:00 16:22 16:42 Temp 98.0 98.2 98.0 98.2 Pulse 90 116 112 Resp 18 18 B/P (MAP) 96/60 (72) 117/70 (86) 149/90 Pulse Ox 95 94 94 O2 Delivery Room Air Room Air Room Air 09/15/16 09/15/16 09/15/16 09/15/16 19:15 19:23 19:30 22:40 Temp 98.0 98.0 98.0 98.0 Pulse 115 114 Resp 20 18 B/P (MAP) 110/56 (74) 117/60 (79) Pulse Ox 95 96 95 O2 Delivery Room Air Room Air Room Air Room Air 09/16/16 09/16/16 09/16/16 09/16/16 02:45 07:00 08:00 08:15 Temp 97.7 97.9 97.7 97.9 Pulse 110 113 Resp 18 18 B/P (MAP) 112/77 (89) 136/92 (107) Pulse Ox 97 97 96 O2 Delivery Room Air Room Air Room Air Room Air Intake and Output 09/15/16 09/15/16 09/16/16 15:00 23:00 07:00 Intake Total 240 ml 740 ml 240 ml Output Total 150 ml 100 ml Balance 240 ml 590 ml 140 ml ZINA RUDOLPH MD Sep 16, 2016 09:26
[2016-09-16] MEDS ORDERED: DIGOXIN IV 500 MCG/2 ML AMPUL. IV ONE (09:30)
[2016-09-16] MEDS: POTASSIUM CHLORIDE 20 MEQ TABLET.ER. PO SCH (09:39)
[2016-09-16] MEDS: GABAPENTIN 300 MG CAPSULE. PO SCH ×2 (09:40→21:31)
[2016-09-16] MEDS: predniSONE 20 MG TABLET PO SCH (09:40)
[2016-09-16] MEDS: CARVEDILOL 6.25 MG TABLET. PO SCH ×2 (09:41→17:15)
[2016-09-16] MEDS: ANASTROZOLE 1 MG TABLET PO SCH (09:49)
[2016-09-16 11:43] VITALS: BP 115/68
--- NOTE | 2016-09-16 12:37 | PDOC ---
PULMONARY PROGRESS NOTES Subjective feels better, on RA Vitals Vital Signs Date Time Temp Pulse Resp B/P (MAP) Pulse Ox O2 Delivery O2 Flow Rate FiO2 09/16/16 11:43 97.7 79 18 115/68 (84) 98 Room Air 97.7 09/15/16 07:34 2.0 General: Alert, No acute distress Lungs: Clear Cardiovascular: S1 Abdomen: Soft Neuro Exam: Alert Extremities: Other (1+edema) Labs Laboratory Tests Test 09/14/16 14:08 09/14/16 14:20 09/14/16 19:55 09/15/16 05:00 Prothrombin Time 18.2 SEC (11.7-14.0) 18.0 SEC (11.7-14.0) Prothromb Time International Ratio 1.6 (0.8-1.1) 1.6 (0.8-1.1) Troponin I Quantitative 0.043 ng/mL (0.000-0.055) 0.045 ng/mL (0.000-0.055) White Blood Count 4.5 x10^3/uL (4.0-11.0) Red Blood Count 4.04 x10^6/uL (3.50-5.40) Hemoglobin 11.9 g/dL (12.0-15.5) Hematocrit 36.6 % (36.0-47.0) Mean Corpuscular Volume 91 fL (79-100) Mean Corpuscular Hemoglobin 29 pg (25-35) Mean Corpuscular Hemoglobin Concent 32 g/dL (31-37) Red Cell Distribution Width 13.8 % (11.5-14.5) Platelet Count 151 x10^3/uL (140-400) Neutrophils (%) (Auto) 64 % (31-73) Lymphocytes (%) (Auto) 26 % (24-48) Monocytes (%) (Auto) 9 % (0-9) Eosinophils (%) (Auto) 2 % (0-3) Basophils (%) (Auto) 1 % (0-3) Neutrophils # (Auto) 2.9 x10^3uL (1.8-7.7) Lymphocytes # (Auto) 1.2 x10^3/uL (1.0-4.8) Monocytes # (Auto) 0.4 x10^3/uL (0.0-1.1) Eosinophils # (Auto) 0.1 x10^3/uL (0.0-0.7) Basophils # (Auto) 0.0 x10^3/uL (0.0-0.2) Sodium Level 144 mmol/L (136-145) Potassium Level 3.6 mmol/L (3.5-5.1) Chloride Level 108 mmol/L (98-107) Carbon Dioxide Level 28 mmol/L (21-32) Anion Gap 8 (6-14) Blood Urea Nitrogen 17 mg/dL (7-20) Creatinine 1.0 mg/dL (0.6-1.0) Estimated GFR (Cockcroft-Gault) 64.6 Glucose Level 101 mg/dL (70-99) Calcium Level 8.2 mg/dL (8.5-10.1) Test 09/16/16 02:40 Prothrombin Time 22.1 SEC (11.7-14.0) Prothromb Time International Ratio 2.1 (0.8-1.1) Laboratory Tests Test 09/16/16 02:40 Prothrombin Time 22.1 SEC (11.7-14.0) Prothromb Time International Ratio 2.1 (0.8-1.1) Medications Active Scripts Medications Dose Route/Sig Max Daily Dose Days Date Category Lasix (Furosemide) 40 Mg Tablet 1 Tab PO DAILY 03/09/15 Rx Gabapentin 300 Mg Capsule 1 Cap PO BID 03/06/15 Reported Coreg (Carvedilol) 6.25 Mg Tablet 1 Tab PO BID 03/06/15 Reported Warfarin Sodium 5 Mg Tablet 7.5 Mg PO QSASU 01/24/15 Reported Hydralazine Hcl 50 Mg Tablet 50 Mg PO BID 01/24/15 Reported NITROGLYCERIN SubLingual (Nitroglycerin) 0.4 Mg Tab.subl 0.4 Mg SL PRN Q5MIN PRN 01/24/15 Reported Anastrozole 1 Mg Tablet 1 Mg PO DAILY 03/10/13 Reported Simvastatin 20 Mg Tablet 20 Mg PO QHS 03/10/13 Reported Klor-Con 10 (Potassium Chloride) 10 Meq Tablet.er 10 Meq PO DAILY 03/10/13 Reported Impression . 1. Acute respiratory failure secondary to acute decompensation of systolic, diastolic heart failure. 2. Abnormal CT of the chest as described above, revealing left upper lobe opacity, which is more prominent than it was back on 01/24/2015. 3. Acute exacerbation of chronic obstructive pulmonary disease. 4. History of pulmonary embolism, on anticoagulation. The patient came in with CT angiogram revealed no new clots. 5. Breast cancer, status post mastectomy. 6. Cardiomyopathy, ejection fraction 30%. 7. Chronic atrial fibrillation. Plan . 1. repeat CT of the chest in 3 months, I have informed her that if she changes her mind, we can certainly proceed with fine needle aspiration by Interventional Radiology. 2. Continue to diurese per Cardiology. 3. Continue anticoagulation. 4. No need for antibiotics. 5. Short course of prednisone for acute exacerbation of chronic obstructive pulmonary disease. KATERIN TODD MD Sep 16, 2016 12:37
[2016-09-16 15:24] VITALS: BP 134/76
[2016-09-16] MEDS ORDERED: WARFARIN 7.5 MG TABLET. PO ONE (16:00)
--- NOTE | 2016-09-16 18:51 | CARD ---
APPROVED REPORT EXAM: Two-dimensional and M-mode echocardiogram with Doppler and color Doppler. Other Information Quality : Average Rhythm : Atrial Fibrillation INDICATION Dyspnea Atrial Fibrillation 2D DIMENSIONS Left Atrium(2D)4.9 (1.6-4.0cm)IVSd1.1 (0.7-1.1cm) Aortic Root(2D)2.3 (2.0-3.7cm)LVDd6.2 (3.9-5.9cm) LVOT Diameter2.1 (1.8-2.4cm)PWd1.1 (0.7-1.1cm) LVDs5.5 (2.5-4.0cm)FS (%) 11.6 % SV48.3 mlLVEF(%)24.5 (>50%) Aortic Valve AoV Peak Regulo.151.6cm/sAoV VTI25.3cm AO Peak GR.9.2mmHgLVOT Peak Regulo.79.6cm/s AO Mean GR.5mmHgAVA (VMAX)1.87cm2 AI P 1/2 [id number] Tricuspid Valve TR P. [id number] [id number] TR Peak [id number] LEFT VENTRICLE The Left Ventricle is mildly dilated. There is normal left ventricular wall thickness. Left ventricle systolic function is severely impaired. The Ejection Fraction is 20-25%. There is global hypokinesis of the left ventricle. Septal motion consistent with conduction abnormality. RIGHT VENTRICLE The right ventricle is normal size. The right ventricular systolic function is normal. ATRIA The left atrium is moderately dilated. The right atrium size is normal. The interatrial septum is int act with no evidence for an atrial septal defect or patent foramen ovale as noted on 2-D or Doppler i maging. AORTIC VALVE The aortic valve is normal in structure. The aortic valve is trileaflet. Doppler and Color Flow revea led trace aortic regurgitation. There is no significant aortic valvular stenosis. MITRAL VALVE The mitral valve leaflets are thickened. The posterior mitral valve leaflet appears fixed. There is n o mitral valve stenosis. Doppler and Color Flow revealed mild to moderate mitral regurgitation. TRICUSPID VALVE The tricuspid valve is normal in structure. Doppler and Color Flow revealed mild to moderate tricuspi d regurgitation. The PA pressure was estimated at 53 mmHg. There is no tricuspid valve stenosis. PULMONIC VALVE The pulmonic valve is not well visualized. Doppler and Color Flow revealed mild pulmonic valvular reg urgitation. There is no pulmonic valvular stenosis. GREAT VESSELS The aortic root is normal in size. The IVC is normal in size and collapses >50% with inspiration. PERICARDIAL EFFUSION There is small pleural effusion. There is a trace circumferential pericardial effusion. Critical Notification Critical Value: No <Conclusion> The Left Ventricle is mildly dilated. There is normal left ventricular wall thickness. Left ventricle systolic function is severely impaired. The Ejection Fraction is 20-25% There is a diastolic dysfunction There is a trace circumferential pericardial effusion. There is thickening of the mitral valve leaflets The papillary muscle is very prominent There is no mitral stenosis and a moderatemitral regurgitation the left and right atria are enlarged The aortic valve is tricuspid. There isno aortic stenosis and a mild aortic regurgitation The right venyticle is of a normal size with normal systolic function. Doppler and Color Flow revealed mild to moderate tricuspid regurgitation. The PA pressure was estimated at 53 mmHg constituting moderate pulmonary hypertension The pulmonic valvve is normal.
[2016-09-16 19:10] VITALS: BP 138/64
[2016-09-16] MEDS: SIMVASTATIN 20 MG TABLET PO SCH (21:31)
[2016-09-16 23:20] VITALS: BP 118/71
[2016-09-17 03:30] VITALS: BP 152/86
[2016-09-17 05:09] LABS: INR 3.2 (0.8-1.1); PROTHROMBIN TIME PATIENT 30.9 SEC (11.7-14.0)
[2016-09-17 07:00] VITALS: BP 140/82
[2016-09-17] MEDS: BUDESONIDE 0.5 MG/2 ML NEBU. NEB SCH ×2 (07:06→19:15)
[2016-09-17] MEDS: IPRATRPIUM/ALBUTEROL 0.5/2.5MG 3 ML NEBU. NEB SCH ×4 (07:06→19:14)
[2016-09-17] MEDS: POTASSIUM CHLORIDE 20 MEQ TABLET.ER. PO SCH (09:27)
[2016-09-17] MEDS: CARVEDILOL 6.25 MG TABLET. PO SCH ×2 (09:27→17:37)
[2016-09-17] MEDS: DIGOXIN 125 MCG TABLET. PO SCH (09:28)
[2016-09-17] MEDS: predniSONE 20 MG TABLET PO SCH (09:28)
[2016-09-17] MEDS: GABAPENTIN 300 MG CAPSULE. PO SCH ×2 (09:28→21:52)
[2016-09-17] MEDS: ANASTROZOLE 1 MG TABLET PO SCH (09:31)
--- NOTE | 2016-09-17 10:07 | PDOC ---
PULMONARY PROGRESS NOTES Subjective feels better, on RA Vitals Vital Signs Date Time Temp Pulse Resp B/P (MAP) Pulse Ox O2 Delivery O2 Flow Rate FiO2 09/17/16 09:28 106 140/82 09/17/16 07:40 Room Air 09/17/16 07:07 97 09/17/16 07:00 98.4 18 98.4 General: Alert, No acute distress Lungs: Clear Cardiovascular: S1 Abdomen: Soft Neuro Exam: Alert Extremities: Other (1+edema) Labs Laboratory Tests Test 09/16/16 02:40 09/17/16 03:09 Prothrombin Time 22.1 SEC (11.7-14.0) 30.9 SEC (11.7-14.0) Prothromb Time International Ratio 2.1 (0.8-1.1) 3.2 (0.8-1.1) Laboratory Tests Test 09/17/16 03:09 Prothrombin Time 30.9 SEC (11.7-14.0) Prothromb Time International Ratio 3.2 (0.8-1.1) Medications Active Scripts Medications Dose Route/Sig Max Daily Dose Days Date Category Lasix (Furosemide) 40 Mg Tablet 1 Tab PO DAILY 03/09/15 Rx Gabapentin 300 Mg Capsule 1 Cap PO BID 03/06/15 Reported Coreg (Carvedilol) 6.25 Mg Tablet 1 Tab PO BID 03/06/15 Reported Warfarin Sodium 5 Mg Tablet 7.5 Mg PO QSASU 01/24/15 Reported Hydralazine Hcl 50 Mg Tablet 50 Mg PO BID 01/24/15 Reported NITROGLYCERIN SubLingual (Nitroglycerin) 0.4 Mg Tab.subl 0.4 Mg SL PRN Q5MIN PRN 01/24/15 Reported Anastrozole 1 Mg Tablet 1 Mg PO DAILY 03/10/13 Reported Simvastatin 20 Mg Tablet 20 Mg PO QHS 03/10/13 Reported Klor-Con 10 (Potassium Chloride) 10 Meq Tablet.er 10 Meq PO DAILY 03/10/13 Reported Impression . 1. Acute respiratory failure secondary to acute decompensation of systolic, diastolic heart failure. 2. Abnormal CT of the chest as described above, revealing left upper lobe opacity, which is more prominent than it was back on 01/24/2015. 3. Acute exacerbation of chronic obstructive pulmonary disease. 4. History of pulmonary embolism, on anticoagulation. The patient came in with CT angiogram revealed no new clots. 5. Breast cancer, status post mastectomy. 6. Cardiomyopathy, ejection fraction 30%. 7. Chronic atrial fibrillation. Plan . 1. repeat CT of the chest in 3 months, I have informed her that if she changes her mind, we can certainly proceed with fine needle aspiration by Interventional Radiology. 2. Continue to diurese per Cardiology. 3. Continue anticoagulation. 4. No need for antibiotics. 5. Short course of prednisone for acute exacerbation of chronic obstructive pulmonary disease. 6. stable pulmonary brady for KATERIN Keller MD Sep 17, 2016 10:07
[2016-09-17 11:21] VITALS: BP 153/87
--- NOTE | 2016-09-17 12:35 | PDOC ---
PROGRESS NOTES Chief Complaint Chief Complaint Acute diastolic CHF exacerbation, AFIB with RVR phtn Mitral regurg htn and hld h/o BCa post sx lung mass on ct hypokalemia History of Present Illness History of Present Illness Pt seen in ICU Pt asleep in bed INR elevated to 2.1 (therapeutic on Coumadin) Vitals Vitals Vital Signs Date Time Temp Pulse Resp B/P (MAP) Pulse Ox O2 Delivery O2 Flow Rate FiO2 09/17/16 11:21 98.6 113 18 153/87 (109) 95 Room Air 98.6 Physical Exam General: Cooperative, No acute distress Heart: Other (irregularly irregular, tachycardic, S1 and S2) Lungs: Clear, Other (No RRW) Abdomen: Normal bowel sounds, Soft Extremities: No clubbing, No edema Skin: No rashes, No significant lesion Labs LABS Laboratory Tests Test 09/17/16 03:09 Prothrombin Time 30.9 SEC (11.7-14.0) Prothromb Time International Ratio 3.2 (0.8-1.1) Review of Systems Review of Systems Cardio: Diastolic dysfunction with ejection fraction of 20-25% MSK: Weakness Resp: Productive cough Assessment and Plan Assessmemt and Plan Problems Medical Problems: (1) CHF (congestive heart failure) Status: Acute (2) SOB (shortness of breath) Status: Acute Acute diastolic CHF exacerbation, AFIB with RVR Plan: -Continue to diurese -Continue anticoag -Possible AICD tomorrow morning (09/18) due to EF 20-25% -Order PT/OT -Continue home meds Problems: Comment Review of Relevant I have reviewed the following items bhanu (where applicable) has been applied. Labs Laboratory Tests Test 09/16/16 02:40 09/17/16 03:09 Prothrombin Time 22.1 SEC (11.7-14.0) 30.9 SEC (11.7-14.0) Prothromb Time International Ratio 2.1 (0.8-1.1) 3.2 (0.8-1.1) Laboratory Tests Test 09/17/16 03:09 Prothrombin Time 30.9 SEC (11.7-14.0) Prothromb Time International Ratio 3.2 (0.8-1.1) Medications Current Medications Aspirin (Children'S Aspirin) 324 mg 1X ONCE PO Last administered on 09/14/16 07:45; Start 09/14/16 at 07:15; Stop 09/14/16 at 07:16; Status DC Sodium Chloride (Normal Saline Flush) 10 ml QSHIFT PRN IV AFTER MEDS AND BLOOD DRAWS; Start 09/14/16 at 07:15 Iohexol (Omnipaque 300 Mg/ml) 75 ml 1X ONCE IV Last administered on 09/14/16 08:21; Start 09/14/16 at 07:45; Stop 09/14/16 at 07:46; Status DC Info (Do NOT chart on this entry -- for MONITORING) 1 each PRN DAILY PRN MC SEE COMMENTS; Start 09/14/16 at 07:45; Stop 09/16/16 at 07:44; Status DC Furosemide (Lasix) 40 mg 1X ONCE IVP Last administered on 09/14/16 09:19; Start 09/14/16 at 09:15; Stop 09/14/16 at 09:16; Status DC Nitroglycerin (Nitrostat) 0.4 mg PRN Q5MIN PRN SL CHEST PAIN; Start 09/14/16 at 09:15; Stop 09/16/16 at 16:15; Status DC Ondansetron HCl (Zofran) 4 mg PRN Q8HRS PRN IV NAUSEA/VOMITING; Start 09/14/16 at 09:30; Stop 09/15/16 at 09:29; Status DC Acetaminophen (Tylenol) 650 mg PRN Q4HRS PRN PO FEVER; Start 09/14/16 at 09:30; Stop 09/15/16 at 09:29; Status DC Potassium Chloride (Klor-Con) 40 meq 1X ONCE PO Last administered on 09/14/16 10:54; Start 09/14/16 at 10:45; Stop 09/14/16 at 10:46; Status DC Potassium Chloride (Klor-Con) 40 meq 1X ONCE PO ; Start 09/14/16 at 11:00; Stop 09/14/16 at 11:00; Status DC Magnesium Sulfate/ Dextrose 50 ml @ 25 mls/hr PRN DAILY PRN IV FOR MAGNESIUM LEVEL 1.7 MEQ/L; Start 09/14/16 at 10:45; Stop 09/16/16 at 09:01; Status DC Potassium Chloride (KCl Oral Soln) 40 meq PRN Q4HRS PRN PO FOR POTASSIUM LEVEL 3.0 MEQ/L; Start 09/14/16 at 10:45 Potassium Chloride (Klor-Con) 40 meq PRN 1X PRN PO FOR POTASSIUM LEVEL 3.1-3.5 ; Start 09/14/16 at 10:45 Anastrozole (Arimidex) 1 mg DAILY PO Last administered on 09/17/16 09:31; Start 09/14/16 at 13:30 Carvedilol (Coreg) 6.25 mg BIDWMEALS PO ; Start 09/14/16 at 17:00; Stop 09/14/16 at 17:00; Status DC Furosemide (Lasix) 40 mg DAILY PO Last administered on 09/14/16 15:15; Start at 12:30; Stop 09/14/16 at 16:01; Status DC Hydralazine HCl (Apresoline) 50 mg BID PO Last administered on 09/14/16 21:41; Start 09/14/16 at 13:30; Stop 09/15/16 at 11:26; Status DC Nitroglycerin (Nitrostat) 0.4 mg PRN Q5MIN PRN SL CHEST PAIN; Start 09/14/16 at 12:45 Simvastatin (Zocor) 20 mg QHS PO Last administered on 09/16/16 21:31; Start 09/14/16 at 21:00 Warfarin Sodium (Coumadin) 7.5 mg DAILY16 PO Last administered on 09/14/16 15: 16; Start 09/14/16 at 16:00; Stop 09/15/16 at 10:59; Status DC Gabapentin (Neurontin) 300 mg BID PO Last administered on 09/17/16 09:28; Start 09/14/16 at 13:30 Potassium Chloride (Klor-Con) 10 meq DAILYWBKFT PO Last administered on 15:14; Start 09/14/16 at 13:30; Stop 09/14/16 at 16:01; Status DC Diltiazem HCl 125 mg/Dextrose 125 ml @ 0 mls/hr CONT PRN IV SEE I/O RECORD Last administered on 09/14/16 13:04; Start 09/14/16 at 12:45; Stop 09/15/16 at 11: 26; Status DC Diltiazem HCl (Cardizem) 10 mg 1X ONCE IVP Last administered on 09/14/16 13:01 ; Start 09/14/16 at 12:45; Stop 09/14/16 at 12:47; Status DC Warfarin Sodium (Coumadin Per Physician) 1 each PRN DAILY PRN MC SEE COMMENTS; Start 09/14/16 at 14:45; Stop 09/14/16 at 16:01; Status DC Carvedilol (Coreg) 12.5 mg BIDWMEALS PO Last administered on 09/15/16 08:08; Start 09/14/16 at 17:00; Stop 09/15/16 at 15:03; Status DC Furosemide (Lasix) 40 mg BID PO Last administered on 09/15/16 08:08; Start 09/14 at 21:00; Stop 09/15/16 at 15:04; Status DC Potassium Chloride (Klor-Con) 20 meq DAILYWBKFT PO Last administered on 09:27; Start 09/15/16 at 08:00 Warfarin Sodium (Coumadin Per Pharmacy) 1 each PRN DAILY PRN MC SEE COMMENTS Last administered on 09/17/16 09:07; Start 09/14/16 at 16:00 Acetaminophen (Tylenol) 650 mg PRN Q6HRS PRN PO FEVER; Start 09/14/16 at 16:00 Ondansetron HCl (Zofran) 4 mg PRN Q6HRS PRN IV NAUSEA/VOMITING; Start 09/14/16 at 16:00 Morphine Sulfate 2 mg PRN Q2HR PRN IV PAIN; Start 09/14/16 at 16:00 Tramadol HCl (Ultram) 50 mg PRN Q6HRS PRN PO PAIN Last administered on 12:48; Start 09/14/16 at 16:00 Hydralazine HCl (Apresoline) 10 mg PRN Q4HRS PRN IVP ELEVATED BP, SEE COMMENTS ; Start 09/14/16 at 16:00 Docusate Sodium (Colace) 100 mg PRN DAILY PRN PO CONSTIPATION; Start 09/14/16 at 16:00 Metoprolol Tartrate (Lopressor) 5 mg PRN Q4HRS PRN IVP HR/BP; Start 09/14/16 at 18:45 Prednisone (Prednisone) 20 mg DAILY PO Last administered on 09/17/16 09:28; Start 09/15/16 at 09:00 Warfarin Sodium (Coumadin) 9 mg 1X WARF ONCE PO Last administered on 09/15/16 16:42; Start 09/15/16 at 16:00; Stop 09/15/16 at 16:01; Status DC Albuterol/ Ipratropium (Duoneb) 3 ml RTQID NEB Last administered on 09/17/16 11 :17; Start 09/15/16 at 12:00 Budesonide (Pulmicort) 0.5 mg RTBID NEB Last administered on 09/17/16 07:06; Start 09/15/16 at 20:00 Carvedilol (Coreg) 6.25 mg BIDWMEALS PO Last administered on 09/17/16 09:27; Start 09/15/16 at 17:00 Digoxin (Lanoxin) 125 mcg DAILY PO Last administered on 09/17/16 09:28; Start 09/17/16 at 09:00 Digoxin (Lanoxin) 250 mcg 1X ONCE IV Last administered on 09/16/16 09:42; Start 09/16/16 at 09:30; Stop 09/16/16 at 09:31; Status DC Warfarin Sodium (Coumadin) 7.5 mg 1X WARF ONCE PO Last administered on 17:15; Start 09/16/16 at 16:00; Stop 09/16/16 at 16:01; Status DC Warfarin Sodium (Coumadin - No Dose Today) 1 each 1X WARF ONCE MC ; Start at 16:00; Stop 09/17/16 at 16:01 Active Scripts Active Lasix (Furosemide) 40 Mg Tablet 1 Tab PO DAILY Reported Gabapentin 300 Mg Capsule 1 Cap PO BID Coreg (Carvedilol) 6.25 Mg Tablet 1 Tab PO BID Warfarin Sodium 5 Mg Tablet 7.5 Mg PO QSASU Hydralazine Hcl 50 Mg Tablet 50 Mg PO BID NITROGLYCERIN SubLingual (Nitroglycerin) 0.4 Mg Tab.subl 0.4 Mg SL PRN Q5MIN PRN Anastrozole 1 Mg Tablet 1 Mg PO DAILY Simvastatin 20 Mg Tablet 20 Mg PO QHS Klor-Con 10 (Potassium Chloride) 10 Meq Tablet.er 10 Meq PO DAILY Vitals/I & O Vital Sign - Last 24 Hours 09/16/16 09/16/16 09/16/16 09/16/16 12:48 14:00 15:20 15:24 Temp 98.0 98.0 Pulse 82 Resp 18 B/P (MAP) 134/76 (95) Pulse Ox 95 O2 Delivery Room Air Room Air Room Air Room Air 09/16/16 09/16/16 09/16/16 09/16/16 17:15 19:10 20:00 23:20 Temp 97.8 98.1 97.8 98.1 Pulse 82 114 61 Resp 20 18 B/P (MAP) 134/76 138/64 (88) 118/71 (87) Pulse Ox 96 98 O2 Delivery Room Air Room Air Room Air 09/17/16 09/17/16 09/17/16 09/17/16 03:30 07:00 07:07 07:40 Temp 97.8 98.4 97.8 98.4 Pulse 122 106 Resp 20 18 B/P (MAP) 152/86 (108) 140/82 (101) Pulse Ox 95 98 97 O2 Delivery Room Air Room Air Room Air Room Air 09/17/16 09/17/16 09/17/16 09/17/16 09:27 09:28 11:17 11:21 Temp 98.6 98.6 Pulse 106 106 113 Resp 18 B/P (MAP) 140/82 140/82 153/87 (109) Pulse Ox 95 O2 Delivery Room Air Room Air Intake and Output 09/16/16 09/16/16 09/17/16 15:00 23:00 07:00 Intake Total 360 ml 700 ml 740 ml Output Total 100 ml 225 ml Balance 260 ml 700 ml 515 ml RAVINDER GODDARD K III DO Sep 17, 2016 12:35
[2016-09-17 15:32] VITALS: BP 115/55
[2016-09-17 19:10] VITALS: BP 135/62
--- NOTE | 2016-09-17 19:43 | PDOC ---
Provider Note Provider Note Tachycardia has omproved with digitalization Bradycardia is not significant enough to warrant a pacemaker. Low EF anf she qualifies for an AICD. Patient states she would want one but wants to think about it She understands it is only as a life saving mechanism. It would not make her feel better. PLAN. Discharge tomorrow. PET Scan as an outpatient. If malgnamcy is not suspected BiV- AICD. Encourage use of a walker, with Coumadin on board MYRA CURTIS MD Sep 17, 2016 19:43
[2016-09-17] MEDS: SIMVASTATIN 20 MG TABLET PO SCH (21:52)
[2016-09-17 22:45] VITALS: BP 116/56
[2016-09-18 04:30] LABS: INR 3.4 (0.8-1.1); PROTHROMBIN TIME PATIENT 32.2 SEC (11.7-14.0)
[2016-09-18 07:00] VITALS: BP 151/96
[2016-09-18] MEDS: BUDESONIDE 0.5 MG/2 ML NEBU. NEB SCH (07:18)
[2016-09-18] MEDS: IPRATRPIUM/ALBUTEROL 0.5/2.5MG 3 ML NEBU. NEB SCH ×2 (07:18→10:41)
[2016-09-18] MEDS: DIGOXIN 125 MCG TABLET. PO SCH (09:03)
[2016-09-18] MEDS: CARVEDILOL 6.25 MG TABLET. PO SCH (09:03)
[2016-09-18] MEDS: predniSONE 20 MG TABLET PO SCH (09:03)
[2016-09-18] MEDS: POTASSIUM CHLORIDE 20 MEQ TABLET.ER. PO SCH (09:03)
[2016-09-18] MEDS: GABAPENTIN 300 MG CAPSULE. PO SCH (09:03)
[2016-09-18] MEDS: ANASTROZOLE 1 MG TABLET PO SCH (09:07)
[2016-09-18] MEDS ORDERED: DIGO125T PO (10:26)
[2016-09-18] MEDS ORDERED: CARV3.122 PO (10:29)
[2016-09-18 10:49] VITALS: BP 161/95
--- NOTE | 2016-09-18 11:32 | PDOC ---
PROGRESS NOTES Chief Complaint Chief Complaint Acute diastolic CHF exacerbation, AFIB with RVR Pulmonary HTN Mitral regurgitation HTN Hld hx of BCa post sx Lung mass on ct Hypokalemia History of Present Illness History of Present Illness Pt was awake and comfortable in bed. INR elevated to 3.4 on Coumadin. Discussed case with Dr. Hodge. Discussed probable discharge with patient. Vitals Vitals Vital Signs Date Time Temp Pulse Resp B/P (MAP) Pulse Ox O2 Delivery O2 Flow Rate FiO2 09/18/16 10:49 97.9 12 18 161/95 (117) 96 Room Air 97.9 09/18/16 08:00 2.0 Physical Exam General: Alert, Cooperative, No acute distress Heart: Regular rate, No murmurs Lungs: Clear, Other (No RRW) Abdomen: Normal bowel sounds, Soft Extremities: No clubbing, No edema Skin: No rashes, No significant lesion Labs LABS Laboratory Tests Test 09/18/16 03:30 Prothrombin Time 32.2 SEC (11.7-14.0) Prothromb Time International Ratio 3.4 (0.8-1.1) Review of Systems Review of Systems Patient complains of mild SOB. Patient complains of weakness. Assessment and Plan Assessmemt and Plan Problems Medical Problems: (1) CHF (congestive heart failure) Status: Acute (2) SOB (shortness of breath) Status: Acute Assessment: Acute diastolic CHF exacerbation, AFIB with RVR Pulmonary HTN Mitral regurgitation HTN Hld hx of BCa post sx Lung mass on ct Hypokalemia Plan: 1. Discussed case with Dr. Hodge (Cardiology) 2. Probable discharge today 3. Discuss AICD with patient 4. Recheck labs 5. PT/OT 6. Home medications Problems: Comment Review of Relevant I have reviewed the following items bhanu (where applicable) has been applied. Labs Laboratory Tests Test 09/17/16 03:09 09/18/16 03:30 Prothrombin Time 30.9 SEC (11.7-14.0) 32.2 SEC (11.7-14.0) Prothromb Time International Ratio 3.2 (0.8-1.1) 3.4 (0.8-1.1) Laboratory Tests Test 09/18/16 03:30 Prothrombin Time 32.2 SEC (11.7-14.0) Prothromb Time International Ratio 3.4 (0.8-1.1) Medications Current Medications Aspirin (Children'S Aspirin) 324 mg 1X ONCE PO Last administered on 09/14/16 07:45; Start 09/14/16 at 07:15; Stop 09/14/16 at 07:16; Status DC Sodium Chloride (Normal Saline Flush) 10 ml QSHIFT PRN IV AFTER MEDS AND BLOOD DRAWS; Start 09/14/16 at 07:15 Iohexol (Omnipaque 300 Mg/ml) 75 ml 1X ONCE IV Last administered on 09/14/16 08:21; Start 09/14/16 at 07:45; Stop 09/14/16 at 07:46; Status DC Info (Do NOT chart on this entry -- for MONITORING) 1 each PRN DAILY PRN MC SEE COMMENTS; Start 09/14/16 at 07:45; Stop 09/16/16 at 07:44; Status DC Furosemide (Lasix) 40 mg 1X ONCE IVP Last administered on 09/14/16 09:19; Start 09/14/16 at 09:15; Stop 09/14/16 at 09:16; Status DC Nitroglycerin (Nitrostat) 0.4 mg PRN Q5MIN PRN SL CHEST PAIN; Start 09/14/16 at 09:15; Stop 09/16/16 at 16:15; Status DC Ondansetron HCl (Zofran) 4 mg PRN Q8HRS PRN IV NAUSEA/VOMITING; Start 09/14/16 at 09:30; Stop 09/15/16 at 09:29; Status DC Acetaminophen (Tylenol) 650 mg PRN Q4HRS PRN PO FEVER; Start 09/14/16 at 09:30; Stop 09/15/16 at 09:29; Status DC Potassium Chloride (Klor-Con) 40 meq 1X ONCE PO Last administered on 09/14/16 10:54; Start 09/14/16 at 10:45; Stop 09/14/16 at 10:46; Status DC Potassium Chloride (Klor-Con) 40 meq 1X ONCE PO ; Start 09/14/16 at 11:00; Stop 09/14/16 at 11:00; Status DC Magnesium Sulfate/ Dextrose 50 ml @ 25 mls/hr PRN DAILY PRN IV FOR MAGNESIUM LEVEL 1.7 MEQ/L; Start 09/14/16 at 10:45; Stop 09/16/16 at 09:01; Status DC Potassium Chloride (KCl Oral Soln) 40 meq PRN Q4HRS PRN PO FOR POTASSIUM LEVEL 3.0 MEQ/L; Start 09/14/16 at 10:45 Potassium Chloride (Klor-Con) 40 meq PRN 1X PRN PO FOR POTASSIUM LEVEL 3.1-3.5 ; Start 09/14/16 at 10:45 Anastrozole (Arimidex) 1 mg DAILY PO Last administered on 09/18/16 09:07; Start 09/14/16 at 13:30 Carvedilol (Coreg) 6.25 mg BIDWMEALS PO ; Start 09/14/16 at 17:00; Stop 09/14/16 at 17:00; Status DC Furosemide (Lasix) 40 mg DAILY PO Last administered on 09/14/16 15:15; Start at 12:30; Stop 09/14/16 at 16:01; Status DC Hydralazine HCl (Apresoline) 50 mg BID PO Last administered on 09/14/16 21:41; Start 09/14/16 at 13:30; Stop 09/15/16 at 11:26; Status DC Nitroglycerin (Nitrostat) 0.4 mg PRN Q5MIN PRN SL CHEST PAIN; Start 09/14/16 at 12:45 Simvastatin (Zocor) 20 mg QHS PO Last administered on 09/17/16 21:52; Start 09/14/16 at 21:00 Warfarin Sodium (Coumadin) 7.5 mg DAILY16 PO Last administered on 09/14/16 15: 16; Start 09/14/16 at 16:00; Stop 09/15/16 at 10:59; Status DC Gabapentin (Neurontin) 300 mg BID PO Last administered on 09/18/16 09:03; Start 09/14/16 at 13:30 Potassium Chloride (Klor-Con) 10 meq DAILYWBKFT PO Last administered on 15:14; Start 09/14/16 at 13:30; Stop 09/14/16 at 16:01; Status DC Diltiazem HCl 125 mg/Dextrose 125 ml @ 0 mls/hr CONT PRN IV SEE I/O RECORD Last administered on 09/14/16 13:04; Start 09/14/16 at 12:45; Stop 09/15/16 at 11: 26; Status DC Diltiazem HCl (Cardizem) 10 mg 1X ONCE IVP Last administered on 09/14/16 13:01 ; Start 09/14/16 at 12:45; Stop 09/14/16 at 12:47; Status DC Warfarin Sodium (Coumadin Per Physician) 1 each PRN DAILY PRN MC SEE COMMENTS; Start 09/14/16 at 14:45; Stop 09/14/16 at 16:01; Status DC Carvedilol (Coreg) 12.5 mg BIDWMEALS PO Last administered on 09/15/16 08:08; Start 09/14/16 at 17:00; Stop 09/15/16 at 15:03; Status DC Furosemide (Lasix) 40 mg BID PO Last administered on 09/15/16 08:08; Start 09/14 at 21:00; Stop 09/15/16 at 15:04; Status DC Potassium Chloride (Klor-Con) 20 meq DAILYWBKFT PO Last administered on 09:03; Start 09/15/16 at 08:00 Warfarin Sodium (Coumadin Per Pharmacy) 1 each PRN DAILY PRN MC SEE COMMENTS Last administered on 09/17/16 09:07; Start 09/14/16 at 16:00 Acetaminophen (Tylenol) 650 mg PRN Q6HRS PRN PO FEVER; Start 09/14/16 at 16:00 Ondansetron HCl (Zofran) 4 mg PRN Q6HRS PRN IV NAUSEA/VOMITING; Start 09/14/16 at 16:00 Morphine Sulfate 2 mg PRN Q2HR PRN IV PAIN; Start 09/14/16 at 16:00 Tramadol HCl (Ultram) 50 mg PRN Q6HRS PRN PO PAIN Last administered on 12:48; Start 09/14/16 at 16:00 Hydralazine HCl (Apresoline) 10 mg PRN Q4HRS PRN IVP ELEVATED BP, SEE COMMENTS ; Start 09/14/16 at 16:00 Docusate Sodium (Colace) 100 mg PRN DAILY PRN PO CONSTIPATION; Start 09/14/16 at 16:00 Metoprolol Tartrate (Lopressor) 5 mg PRN Q4HRS PRN IVP HR/BP; Start 09/14/16 at 18:45 Prednisone (Prednisone) 20 mg DAILY PO Last administered on 09/18/16 09:03; Start 09/15/16 at 09:00 Warfarin Sodium (Coumadin) 9 mg 1X WARF ONCE PO Last administered on 09/15/16 16:42; Start 09/15/16 at 16:00; Stop 09/15/16 at 16:01; Status DC Albuterol/ Ipratropium (Duoneb) 3 ml RTQID NEB Last administered on 09/18/16 07 :18; Start 09/15/16 at 12:00 Budesonide (Pulmicort) 0.5 mg RTBID NEB Last administered on 09/18/16 07:18; Start 09/15/16 at 20:00 Carvedilol (Coreg) 6.25 mg BIDWMEALS PO Last administered on 09/18/16 09:03; Start 09/15/16 at 17:00 Digoxin (Lanoxin) 125 mcg DAILY PO Last administered on 09/18/16 09:03; Start 09/17/16 at 09:00 Digoxin (Lanoxin) 250 mcg 1X ONCE IV Last administered on 09/16/16 09:42; Start 09/16/16 at 09:30; Stop 09/16/16 at 09:31; Status DC Warfarin Sodium (Coumadin) 7.5 mg 1X WARF ONCE PO Last administered on 17:15; Start 09/16/16 at 16:00; Stop 09/16/16 at 16:01; Status DC Warfarin Sodium (Coumadin - No Dose Today) 1 each 1X WARF ONCE MC ; Start at 16:00; Stop 09/17/16 at 16:01; Status DC Active Scripts Active Carvedilol 3.125 Mg Tablet 1 Tab PO BID Digoxin 125 Mcg Tablet 1 Tab PO DAILY Lasix (Furosemide) 40 Mg Tablet 1 Tab PO DAILY Reported Gabapentin 300 Mg Capsule 1 Cap PO BID TAKE NEXT DOSE IGHT SEP 18 AT BEDTIME Warfarin Sodium 5 Mg Tablet 7.5 Mg PO QSASU TAKE NEXT DOSE THIS FridaySEP 21 Hydralazine Hcl 50 Mg Tablet 50 Mg PO BID CHECK BLOOD PRESSURE FIRST IF ELEVATED TAKE NEXT DOSE SEP 18 AT BEDTIME NITROGLYCERIN SubLingual (Nitroglycerin) 0.4 Mg Tab.subl 0.4 Mg SL PRN Q5MIN PRN Anastrozole 1 Mg Tablet 1 Mg PO DAILY TAKE NEXT DOSE TOMORROW SEP 19 IN AM Simvastatin 20 Mg Tablet 20 Mg PO QHS TAKE NEXT DOSE TONIGHT SEP 18 AT BEDTIME Klor-Con 10 (Potassium Chloride) 10 Meq Tablet.er 10 Meq PO DAILY TAKE NEXT DOSE TOMORROW SEP 19 IN AM Vitals/I & O Vital Sign - Last 24 Hours 09/17/16 09/17/16 09/17/16 09/17/16 15:26 15:32 17:37 19:10 Temp 98.2 97.9 98.2 97.9 Pulse 64 120 67 Resp 18 18 B/P (MAP) 115/55 (75) 115/55 135/62 (86) Pulse Ox 97 97 O2 Delivery Room Air Room Air Room Air 09/17/16 09/17/16 09/18/16 09/18/16 20:00 22:45 03:10 07:00 Temp 97.9 98.0 97.9 98.0 Pulse 62 110 112 Resp 18 18 18 B/P (MAP) 116/56 (76) 151/96 (114) Pulse Ox 95 97 O2 Delivery Room Air Room Air Room Air Room Air 09/18/16 09/18/16 09/18/16 09/18/16 07:19 08:00 09:03 09:03 Pulse 68 111 Pulse Ox 97 O2 Delivery Room Air Room Air O2 Flow Rate 2.0 09/18/16 10:49 Temp 97.9 97.9 Pulse 12 Resp 18 B/P (MAP) 161/95 (117) Pulse Ox 96 O2 Delivery Room Air Intake and Output 09/17/16 09/17/16 09/18/16 15:00 23:00 07:00 Intake Total 180 ml 830 ml 360 ml Output Total 220 ml 350 ml Balance 180 ml 610 ml 10 ml [place] GODDARDL K III DO Sep 18, 2016 11:32
== END 2016-09-18 12:18 | disposition home or self-care (01) | DRG 291 ==
LOC: ER 06:43 → 2 NORTH 09:28 → 2 SOUTH 09:44 → 2 NORTH 09:47
PROVIDERS: ADMIT Internal Medicine; ATTEND Internal Medicine
DX: I11.0 Hypertensive heart disease with heart failure (principal); J96.00 Acute respiratory failure, unspecified whether with hypoxia or hypercapnia; J44.1 Chronic obstructive pulmonary disease with (acute) exacerbation; I50.43 Acute on chronic combined systolic (congestive) and diastolic (congestive) heart failure; I42.9 Cardiomyopathy, unspecified; E78.5 Hyperlipidemia, unspecified; E87.6 Hypokalemia; F17.210 Nicotine dependence, cigarettes, uncomplicated; I27.2 Other secondary pulmonary hypertension; I34.0 Nonrheumatic mitral (valve) insufficiency; I48.2 Chronic atrial fibrillation; R79.1 Abnormal coagulation profile; Z79.01 Long term (current) use of anticoagulants; E78.00 Pure hypercholesterolemia, unspecified; Z82.49 Family history of ischemic heart disease and other diseases of the circulatory system; Z85.3 Personal history of malignant neoplasm of breast; Z90.710 Acquired absence of both cervix and uterus; Z86.711 Personal history of pulmonary embolism; Z87.01 Personal history of pneumonia (recurrent); Z90.10 Acquired absence of unspecified breast and nipple; Z79.899 Other long term (current) drug therapy
CPT/HCPCS: 36415; 36600; 51701; 71010; 71275; 80048; 80076; 81001; 82553; 82805; 83690; 83735; 83880; 84443; 84484; 85027; 85610; 93005; 93306; 94250; 94640; 94760; 96374; J1160; J1940; J3490; J7512; J7620; J7626; Q9967; 97110; 99285-25

== ENCOUNTER → 2016-09-26 | Outpatient (CLI) | payer MEDICARE ==
[2016-09-18 10:49] VITALS: BP 161/95
[~2016-09-26] MED LIST changes: +CARV3.122 PO; +DIGO125T PO
--- NOTE | 2016-09-26 14:49 | RAD ---
PET oncologic study 09/26/2016 Technique: Blood glucose prior to injection: 128 mg/dL Scan region: Skull base to mid thigh Radiopharmaceutical: F-18 FDG 13.77 mCi IV Calibration time: Start 1045 hours and finished at 1210 hours Administration time: 1049 hours on 09/26/2016 Injection site: Left wrist Postinjection imaging delay: Scan time 1147 hours on 09/26/2016 Clinical information: Diagnostic; pulmonary nodule with history of breast cancer. Comparison: None available. Attenuation correction was performed utilizing a noncontrast, nondiagnostic CT. Findings: There is physiologic FDG activity involving the brain parenchyma. The are subcentimeter lymph nodes in the cervical region, none of which are pathologically enlarged or FDG avid. There is a 10 mm partly solid noncalcified nodular opacity in the left upper lobe (series 3, image 126) without significant FDG activity. No FDG avid hilar or mediastinal lymph nodes. There is bibasilar subsegmental atelectasis. Stable cardiomegaly with three-vessel coronary vascular calcic dictation. Improving small bilateral pleural effusions. No pericardial effusion. Thoracic aorta is normal in course and caliber. There is physiologic FDG activity involving the gastrointestinal and genitourinary tracts. There is a 3 cm right renal cyst in superior pole the right kidney. Atherosclerotic ulceration is noted involving the abdominal aorta which is normal in course and caliber. No FDG avid lymph nodes are identified in the abdomen or pelvis. Hyperattenuation is noted layering dependently in the gallbladder suggestive of either gallstones or sludge. No FDG avid osseous lesions are identified. There is a fatty mass involving the left vastus musculature only partially profiled measuring 10.6 x 7.1 cm. Calcified components are identified. Thin septations are noted. Impression: 1. 10 mm partly solid noncalcified nodular opacity in the left upper lobe is not FDG avid. Consideration may be given for an infectious/inflammatory process. However, non-FDG avid malignancy such as bronchoalveolar carcinoma is a consideration. 2. No FDG avid lymph nodes are noted in the chest, abdomen or pelvis. 3. There is a 10.6 x 7.1 cm partially profiled fatty mass in the left vastus musculature. There is a calcified soft tissue component. Consideration should be given for benign fatty lesion such as a lipoma versus liposarcoma given certain complex features. This lesion is not FDG avid.
== END | disposition home or self-care (01) ==
LOC: PETSC 10:39
PROVIDERS: ATTEND Specialist
DX: I51.7 Cardiomegaly (principal); J90 Pleural effusion, not elsewhere classified; J98.11 Atelectasis; R91.1 Solitary pulmonary nodule; Z85.3 Personal history of malignant neoplasm of breast
CPT/HCPCS: 78815; A9552

== ENCOUNTER → 2016-10-28 | Outpatient (CLI) | payer MEDICARE ==
--- NOTE | 2016-10-28 11:54 | RAD ---
DATE: 10/28/2016 EXAM: DIGITAL DIAGNOSTIC LT HISTORY: Left breast screening, previous right breast cancer COMPARISON: 10/23/2015 This study was interpreted with the benefit of Computerized Aided Detection (CAD). The breast parenchyma shows scattered fibroglandular densities. Breast parenchyma level B. Findings: No new or enlarging breast densities are seen. Scattered benign type calcifications are again noted. There is a tiny cluster of microcalcifications at the 9:00 location. These are best seen on the CC magnification view. They are considered to be indeterminate. They appear to have been present in retrospect on previous studies, but are better visualized on today's exam, probably due to technical factors. IMPRESSION: Probably benign microcalcifications in the medial left breast. Mammographic surveillance beginning with left mammograms in 6 months is suggested. BI-RADS CATEGORY: 3 PROBABLY BENIGN FINDING(S)-SHORT INTERVAL FOLLOW-UP SUGGESTED RECOMMENDED FOLLOW-UP: 6M 6 MONTH FOLLOW-UP PQRS compliance statement: Patient information was entered into a reminder system with a target due date for the next mammogram. Mammography is a sensitive method for finding small breast cancers, but it does not detect them all and is not a substitute for careful clinical examination. A negative mammogram does not negate a clinically suspicious finding and should not result in delay in biopsying a clinically suspicious abnormality. "Our facility is accredited by the [employer] Mammography Program."
== END | disposition home or self-care (01) ==
LOC: MAMMO 10:11
PROVIDERS: ATTEND Internal Medicine Hematology & Oncology
DX: C50.311 Malignant neoplasm of lower-inner quadrant of right female breast (principal); Z85.3 Personal history of malignant neoplasm of breast
CPT/HCPCS: G0206; 77065

== ENCOUNTER 2017-03-05 16:07 | Emergency (ER) | payer MEDICARE ==
[2017-03-05 18:22] LABS: BILIRUBIN,URINE NEGATIVE (NEG); CLARITY,URINE CLEAR; COLOR,URINE YELLOW; GLUCOSE,URINE NEGATIVE (NEG); NITRITE,URINE NEGATIVE (NEG); PH,URINE 5.5; PROTEIN,URINE 30 mg/dL (NEG-TRACE)
[2017-03-05 18:42] LABS: BACTERIA,URINE FEW /HPF (0-FEW); RBC,URINE 0 /HPF (0-2); SQUAMOUS EPITHELIAL CELL,UR FEW /LPF
[2017-03-05 18:52] LABS: INFLUENZA A PATIENT NEGATIVE (NEGATIVE); INFLUENZA B PATIENT NEGATIVE (NEGATIVE); OBC FLU VALID
[2017-03-05 18:56] LABS: ADD MAN DIFF? NO
[2017-03-05 18:58] LABS: BASO % 1 % (0-3); EOS % 1 % (0-3); HEMATOCRIT 36.8 % (36.0-47.0); HEMOGLOBIN 12.1 g/dL (12.0-15.5); LYMPH # 0.9 x10^3/uL (1.0-4.8); LYMPH % 19 % (24-48); MEAN CORPUSCULAR HEMOGLOBIN 30 pg (25-35); MEAN CORPUSCULAR HGB CONC 33 g/dL (31-37); MEAN CORPUSCULAR VOLUME 90 fL (79-100); MONO # 0.5 x10^3/uL (0.0-1.1); MONO % 9 % (0-9); NEUT # 3.6 x10^3uL (1.8-7.7); NEUT % 71 % (31-73); PLATELET COUNT 135 x10^3/uL (140-400); RED BLOOD COUNT 4.08 x10^6/uL (3.50-5.40); RED CELL DISTRIBUTION WIDTH 15.1 % (11.5-14.5); WHITE BLOOD COUNT 5.1 x10^3/uL (4.0-11.0)
[2017-03-05 19:08] LABS: ANION GAP 12 (6-14); BLOOD UREA NITROGEN 30 mg/dL (7-20); BUN/CREATININE RATIO 27 (6-20); CALCIUM 8.6 mg/dL (8.5-10.1); CARBON DIOXIDE 24 mmol/L (21-32); CHLORIDE 109 mmol/L (98-107); CREATININE 1.1 mg/dL (0.6-1.0); GFR 57.7; GLUCOSE 104 mg/dL (70-99); POTASSIUM 3.6 mmol/L (3.5-5.1); SODIUM 145 mmol/L (136-145)
[2017-03-05 19:14] LABS: ALBUMIN 3.4 g/dL (3.4-5.0); ALBUMIN/GLOBULIN RATIO 1.2 (1.0-1.7); ALK PHOS 54 U/L (46-116); ALT (SGPT) 28 U/L (14-59); AST (SGOT) 18 U/L (15-37); TOTAL BILIRUBIN 1.2 mg/dL (0.2-1.0); TOTAL PROTEIN 6.3 g/dL (6.4-8.2)
[2017-03-05 19:26] LABS: TROPONINI 0.084 ng/mL (0.000-0.055)
== END 2017-03-05 21:00 | disposition home or self-care (01) ==
LOC: ER 16:07
DX: R53.1 Weakness (principal); I42.0 Dilated cardiomyopathy; I48.2 Chronic atrial fibrillation; E78.00 Pure hypercholesterolemia, unspecified; I11.0 Hypertensive heart disease with heart failure; Z95.0 Presence of cardiac pacemaker
CPT/HCPCS: 36415; 71045; 80053; 81001; 84484; 85025; 87086; 87804; 87804-59; 93005; 99285

== ENCOUNTER 2017-03-14 21:42 | Inpatient (IN) | payer MEDICARE ==
[2017-03-14 22:34] LABS: ADD MAN DIFF? NO
[2017-03-14 22:38] LABS: BASO % 0 % (0-3); EOS % 0 % (0-3); HEMATOCRIT 44.4 % (36.0-47.0); HEMOGLOBIN 14.1 g/dL (12.0-15.5); LYMPH # 0.9 x10^3/uL (1.0-4.8); LYMPH % 13 % (24-48); MEAN CORPUSCULAR HEMOGLOBIN 30 pg (25-35); MEAN CORPUSCULAR HGB CONC 32 g/dL (31-37); MEAN CORPUSCULAR VOLUME 93 fL (79-100); MONO # 0.4 x10^3/uL (0.0-1.1); MONO % 7 % (0-9); NEUT # 5.2 x10^3uL (1.8-7.7); NEUT % 79 % (31-73); PLATELET COUNT 141 x10^3/uL (140-400); RED BLOOD COUNT 4.79 x10^6/uL (3.50-5.40); RED CELL DISTRIBUTION WIDTH 15.9 % (11.5-14.5); WHITE BLOOD COUNT 6.6 x10^3/uL (4.0-11.0)
[2017-03-14 22:57] LABS: ANION GAP 9 (6-14); BLOOD UREA NITROGEN 43 mg/dL (7-20); BUN/CREATININE RATIO 31 (6-20); CALCIUM 8.9 mg/dL (8.5-10.1); CARBON DIOXIDE 29 mmol/L (21-32); CHLORIDE 105 mmol/L (98-107); CREATININE 1.4 mg/dL (0.6-1.0); GFR 43.7; GLUCOSE 184 mg/dL (70-99); POTASSIUM 4.2 mmol/L (3.5-5.1); SODIUM 143 mmol/L (136-145)
[2017-03-14 23:03] LABS: ALBUMIN 3.3 g/dL (3.4-5.0); ALK PHOS 59 U/L (46-116); ALT (SGPT) 85 U/L (14-59); AST (SGOT) 31 U/L (15-37); TOTAL BILIRUBIN 1.8 mg/dL (0.2-1.0); TOTAL PROTEIN 6.5 g/dL (6.4-8.2)
[2017-03-14 23:06] LABS: TROPONINI 0.124 ng/mL (0.000-0.055)
[2017-03-14 23:11] LABS: NT-PRO BNP 32068 pg/mL (0-449)
[2017-03-14 23:30] LABS: DIG 1.4 ng/mL (0.9-2.0)
[2017-03-14] MEDS: FUROSEMIDE 20 MG/2 ML VIAL. IVP (23:40)
[2017-03-14] MEDS: ASPIRIN CHEWABLE 81 MG TABLET. PO (23:40)
[2017-03-14] MEDS ORDERED: ONDANSETRON PF 4 MG/2 ML VIAL. IV (23:45)
[2017-03-15 05:18] LABS: ADD MAN DIFF? NO
[2017-03-15 05:48] LABS: BASO % 1 % (0-3); EOS % 0 % (0-3); HEMATOCRIT 39.3 % (36.0-47.0); HEMOGLOBIN 12.6 g/dL (12.0-15.5); LYMPH # 0.4 x10^3/uL (1.0-4.8); LYMPH % 9 % (24-48); MEAN CORPUSCULAR HEMOGLOBIN 29 pg (25-35); MEAN CORPUSCULAR HGB CONC 32 g/dL (31-37); MEAN CORPUSCULAR VOLUME 91 fL (79-100); MONO # 0.3 x10^3/uL (0.0-1.1); MONO % 7 % (0-9); NEUT # 4.2 x10^3uL (1.8-7.7); NEUT % 84 % (31-73); PLATELET COUNT 131 x10^3/uL (140-400); RED CELL DISTRIBUTION WIDTH 15.6 % (11.5-14.5)
[2017-03-15 06:00] LABS: ANION GAP 8 (6-14); BLOOD UREA NITROGEN 45 mg/dL (7-20); CALCIUM 8.6 mg/dL (8.5-10.1); CARBON DIOXIDE 28 mmol/L (21-32); CHLORIDE 107 mmol/L (98-107); CREATININE 1.4 mg/dL (0.6-1.0); GFR 43.7; GLUCOSE 127 mg/dL (70-99); POTASSIUM 4.4 mmol/L (3.5-5.1); SODIUM 143 mmol/L (136-145)
[2017-03-15 06:08] LABS: TROPONINI 0.134 ng/mL (0.000-0.055)
[2017-03-15] MEDS ORDERED: INFLUENZA VAX SCREEN BY RX. MC (09:00)
[2017-03-15] MEDS ORDERED: traMADol 50 MG TABLET PO (10:45)
[2017-03-15] MEDS ORDERED: MORPHINE SULFATE 2 MG/ML DISP.SYRIN. IV (10:45)
[2017-03-15] MEDS ORDERED: ONDANSETRON PF 4 MG/2 ML VIAL. IV (10:45)
[2017-03-15] MEDS ORDERED: hydrALAZINE 20 MG/ML VIAL. IVP (10:45)
[2017-03-15] MEDS ORDERED: ACETAMINOPHEN 325 MG TABLET. PO (10:45)
[2017-03-15] MEDS: DOCUSATE SODIUM 100 MG CAPSULE. PO (11:30)
[2017-03-15] MEDS: ANASTROZOLE 1 MG TABLET PO (11:31)
[2017-03-15] MEDS: DIGOXIN 125 MCG TABLET. PO (11:32)
[2017-03-15] MEDS: FUROSEMIDE 40 MG TABLET. PO (11:33)
[2017-03-15] MEDS: POTASSIUM CHLORIDE 10 MEQ TABLET.ER. PO (11:33)
[2017-03-15] MEDS: GABAPENTIN 300 MG CAPSULE. PO ×2 (11:33→21:04)
[2017-03-15] MEDS: METOPROLOL TART IMMED RELEASE 25 MG TABLET. PO ×2 (11:33→21:04)
[2017-03-15 12:08] LABS: INR 2.4 (0.8-1.1); PROTHROMBIN TIME PATIENT 24.3 SEC (11.7-14.0)
[2017-03-15 12:16] LABS: TROPONINI 0.095 ng/mL (0.000-0.055)
[2017-03-15] MEDS ORDERED: ALBUTEROL SULFATE 2.5 MG/3 ML NEBU. NEB (14:00)
[2017-03-15] MEDS: WARFARIN 3 MG TABLET. PO (16:40)
[2017-03-15] MEDS: FLU VACC QS2017-18 (36MOS+)/PF 0.5 ML SYRINGE. VAX IM (16:45)
[2017-03-15] MEDS: SIMVASTATIN 20 MG TABLET PO (21:04)
[2017-03-16] MEDS: POTASSIUM CHLORIDE 10 MEQ TABLET.ER. PO (08:00)
[2017-03-16 08:16] LABS: ADD MAN DIFF? NO
[2017-03-16 08:22] LABS: BASO % 0 % (0-3); EOS % 1 % (0-3); HEMATOCRIT 41.9 % (36.0-47.0); HEMOGLOBIN 13.3 g/dL (12.0-15.5); LYMPH # 0.9 x10^3/uL (1.0-4.8); LYMPH % 13 % (24-48); MEAN CORPUSCULAR HEMOGLOBIN 29 pg (25-35); MEAN CORPUSCULAR HGB CONC 32 g/dL (31-37); MEAN CORPUSCULAR VOLUME 92 fL (79-100); MONO # 0.6 x10^3/uL (0.0-1.1); MONO % 9 % (0-9); NEUT # 5.1 x10^3uL (1.8-7.7); NEUT % 77 % (31-73); PLATELET COUNT 138 x10^3/uL (140-400); RED BLOOD COUNT 4.54 x10^6/uL (3.50-5.40); RED CELL DISTRIBUTION WIDTH 15.7 % (11.5-14.5); WHITE BLOOD COUNT 6.6 x10^3/uL (4.0-11.0)
[2017-03-16 08:31] LABS: INR 2.9 (0.8-1.1); PROTHROMBIN TIME PATIENT 28.2 SEC (11.7-14.0)
[2017-03-16 08:35] LABS: ANION GAP 10 (6-14); BLOOD UREA NITROGEN 55 mg/dL (7-20); CALCIUM 9.1 mg/dL (8.5-10.1); CARBON DIOXIDE 24 mmol/L (21-32); CHLORIDE 108 mmol/L (98-107); CREATININE 1.7 mg/dL (0.6-1.0); GFR 34.9; GLUCOSE 129 mg/dL (70-99); POTASSIUM 4.9 mmol/L (3.5-5.1); SODIUM 142 mmol/L (136-145)
[2017-03-16] MEDS: METOPROLOL TART IMMED RELEASE 25 MG TABLET. PO ×3 (09:00→20:07)
[2017-03-16] MEDS: FUROSEMIDE 40 MG TABLET. PO (09:00)
[2017-03-16] MEDS: DIGOXIN 125 MCG TABLET. PO (09:06)
[2017-03-16] MEDS: GABAPENTIN 300 MG CAPSULE. PO ×2 (09:06→20:08)
[2017-03-16] MEDS: ANASTROZOLE 1 MG TABLET PO (09:08)
[2017-03-16] MEDS: POLYETHYLENE GLYCOL 3350 17 GM PACKET. PO (13:02)
[2017-03-16] MEDS: IOHEXOL 240 MG/ML 50ML VIAL. PO (14:00)
[2017-03-16] MEDS ORDERED: CONTRAST GIVEN MC (14:00)
[2017-03-16] MEDS: WARFARIN 6 MG TABLET. PO (16:30)
[2017-03-16] MEDS: SIMVASTATIN 20 MG TABLET PO (20:08)
[2017-03-17] MEDS: POTASSIUM CHLORIDE 10 MEQ TABLET.ER. PO (07:52)
[2017-03-17] MEDS: GABAPENTIN 300 MG CAPSULE. PO ×2 (08:23→20:36)
[2017-03-17] MEDS: DIGOXIN 125 MCG TABLET. PO (08:23)
[2017-03-17] MEDS: FUROSEMIDE 40 MG TABLET. PO (08:23)
[2017-03-17] MEDS: POLYETHYLENE GLYCOL 3350 17 GM PACKET. PO (08:24)
[2017-03-17] MEDS: METOPROLOL TART IMMED RELEASE 25 MG TABLET. PO ×2 (08:24→20:36)
[2017-03-17] MEDS: ANASTROZOLE 1 MG TABLET PO (08:26)
[2017-03-17 09:36] LABS: ADD MAN DIFF? NO
[2017-03-17 09:45] LABS: BASO % 0 % (0-3); EOS % 1 % (0-3); HEMOGLOBIN 14.1 g/dL (12.0-15.5); LYMPH % 16 % (24-48); MEAN CORPUSCULAR HEMOGLOBIN 29 pg (25-35); MEAN CORPUSCULAR HGB CONC 31 g/dL (31-37); MEAN CORPUSCULAR VOLUME 94 fL (79-100); MONO # 0.5 x10^3/uL (0.0-1.1); MONO % 8 % (0-9); NEUT # 4.5 x10^3uL (1.8-7.7); NEUT % 75 % (31-73); PLATELET COUNT 146 x10^3/uL (140-400); RED BLOOD COUNT 4.81 x10^6/uL (3.50-5.40); RED CELL DISTRIBUTION WIDTH 16.5 % (11.5-14.5)
[2017-03-17 09:55] LABS: PROTHROMBIN TIME PATIENT 29.2 SEC (11.7-14.0)
[2017-03-17 10:02] LABS: ANION GAP 10 (6-14); BLOOD UREA NITROGEN 61 mg/dL (7-20); CALCIUM 9.7 mg/dL (8.5-10.1); CARBON DIOXIDE 29 mmol/L (21-32); CHLORIDE 105 mmol/L (98-107); CREATININE 1.8 mg/dL (0.6-1.0); GFR 32.7; GLUCOSE 150 mg/dL (70-99); POTASSIUM 4.9 mmol/L (3.5-5.1); SODIUM 144 mmol/L (136-145)
[2017-03-17] MEDS ORDERED: WARFARIN 6 MG TABLET. PO (16:00)
[2017-03-17] MEDS: WARFARIN 3 MG TABLET. PO (16:37)
[2017-03-17] MEDS: SIMVASTATIN 20 MG TABLET PO (20:36)
[2017-03-18 05:42] LABS: ADD MAN DIFF? NO
[2017-03-18 05:47] LABS: BASO % 0 % (0-3); EOS % 1 % (0-3); HEMATOCRIT 40.3 % (36.0-47.0); HEMOGLOBIN 12.9 g/dL (12.0-15.5); LYMPH # 0.8 x10^3/uL (1.0-4.8); LYMPH % 15 % (24-48); MEAN CORPUSCULAR HEMOGLOBIN 30 pg (25-35); MEAN CORPUSCULAR HGB CONC 32 g/dL (31-37); MEAN CORPUSCULAR VOLUME 92 fL (79-100); MONO # 0.4 x10^3/uL (0.0-1.1); MONO % 8 % (0-9); NEUT # 3.8 x10^3uL (1.8-7.7); NEUT % 75 % (31-73); PLATELET COUNT 122 x10^3/uL (140-400); RED BLOOD COUNT 4.37 x10^6/uL (3.50-5.40); RED CELL DISTRIBUTION WIDTH 15.8 % (11.5-14.5); WHITE BLOOD COUNT 5.1 x10^3/uL (4.0-11.0)
[2017-03-18 05:58] LABS: INR 3.4 (0.8-1.1); PROTHROMBIN TIME PATIENT 32.6 SEC (11.7-14.0)
[2017-03-18 06:25] LABS: ANION GAP 10 (6-14); BLOOD UREA NITROGEN 64 mg/dL (7-20); CALCIUM 9.1 mg/dL (8.5-10.1); CARBON DIOXIDE 27 mmol/L (21-32); CHLORIDE 107 mmol/L (98-107); CREATININE 1.6 mg/dL (0.6-1.0); GFR 37.4; GLUCOSE 113 mg/dL (70-99); POTASSIUM 5.1 mmol/L (3.5-5.1); SODIUM 144 mmol/L (136-145)
[2017-03-18] MEDS: POTASSIUM CHLORIDE 10 MEQ TABLET.ER. PO (08:00)
[2017-03-18] MEDS: GABAPENTIN 300 MG CAPSULE. PO (09:17)
[2017-03-18] MEDS: POLYETHYLENE GLYCOL 3350 17 GM PACKET. PO (09:17)
[2017-03-18] MEDS: METOPROLOL TART IMMED RELEASE 25 MG TABLET. PO (09:18)
[2017-03-18] MEDS: FUROSEMIDE 40 MG TABLET. PO (09:18)
[2017-03-18] MEDS: DIGOXIN 125 MCG TABLET. PO (09:18)
[2017-03-18] MEDS: ANASTROZOLE 1 MG TABLET PO (09:21)
[2017-03-18] MEDS: PHYTONADIONE 10 MG/ML ORAL SOLUTION. PO (14:26)
== END 2017-03-18 14:35 | DRG 291 ==
LOC: 2 SOUTH 23:13 → ER 21:42
DX: I13.0 Hypertensive heart and chronic kidney disease with heart failure and stage 1 through stage 4 chronic kidney disease, or unspecified chronic kidney disease (principal); I50.23 Acute on chronic systolic (congestive) heart failure; N17.9 Acute kidney failure, unspecified; D69.6 Thrombocytopenia, unspecified; I27.20 Pulmonary hypertension, unspecified; G62.9 Polyneuropathy, unspecified; J44.9 Chronic obstructive pulmonary disease, unspecified; N18.3 Chronic kidney disease, stage 3 (moderate); I50.42 Chronic combined systolic (congestive) and diastolic (congestive) heart failure; Z68.1 Body mass index [BMI] 19.9 or less, adult; I42.0 Dilated cardiomyopathy; I42.9 Cardiomyopathy, unspecified; I48.91 Unspecified atrial fibrillation; C50.919 Malignant neoplasm of unspecified site of unspecified female breast; E78.00 Pure hypercholesterolemia, unspecified; E78.5 Hyperlipidemia, unspecified; I25.10 Atherosclerotic heart disease of native coronary artery without angina pectoris; Z79.01 Long term (current) use of anticoagulants; Z79.811 Long term (current) use of aromatase inhibitors; Z82.49 Family history of ischemic heart disease and other diseases of the circulatory system; Z86.711 Personal history of pulmonary embolism; Z87.891 Personal history of nicotine dependence; Z90.710 Acquired absence of both cervix and uterus; Z95.0 Presence of cardiac pacemaker; F03.90 Unspecified dementia, unspecified severity, without behavioral disturbance, psychotic disturbance, mood disturbance, and anxiety; Z90.11 Acquired absence of right breast and nipple; Z51.5 Encounter for palliative care
CPT/HCPCS: 36415; 71045; 71250; 74176; 78306; 80048; 80053; 80162; 83880; 84484; 85025; 85610; 90686; 93005; 93306; 96374; 97110-GP; 97116-GP; 97162-GP; 97166-GO; 99285; 99285-25; A9503; Q9966

== ENCOUNTER 2017-03-24 00:25 | Inpatient (IN) | payer MEDICARE ==
[2017-03-24 00:44] LABS: ADD MAN DIFF? NO
[2017-03-24 00:46] LABS: BASO % 0 % (0-3); EOS % 0 % (0-3); HEMATOCRIT 43.3 % (36.0-47.0); HEMOGLOBIN 13.7 g/dL (12.0-15.5); LYMPH # 0.7 x10^3/uL (1.0-4.8); LYMPH % 8 % (24-48); MEAN CORPUSCULAR HEMOGLOBIN 30 pg (25-35); MEAN CORPUSCULAR HGB CONC 32 g/dL (31-37); MEAN CORPUSCULAR VOLUME 94 fL (79-100); MONO # 0.7 x10^3/uL (0.0-1.1); MONO % 8 % (0-9); NEUT # 7.7 x10^3uL (1.8-7.7); NEUT % 84 % (31-73); PLATELET COUNT 138 x10^3/uL (140-400); RED BLOOD COUNT 4.63 x10^6/uL (3.50-5.40); RED CELL DISTRIBUTION WIDTH 17.5 % (11.5-14.5); WHITE BLOOD COUNT 9.2 x10^3/uL (4.0-11.0)
[2017-03-24 00:47] LABS: TROPONIN BY ISTAT 0.13 ng/ml (<0.08)
[2017-03-24] MEDS: ALBUTEROL SULFATE 2.5 MG/3 ML NEBU. NEB (00:48)
[2017-03-24 00:57] LABS: INR 2.5 (0.8-1.1); PARTIAL THROMBOPLASTIN TIME 32 SEC (24-38); PROTHROMBIN TIME PATIENT 25.8 SEC (11.7-14.0)
[2017-03-24 01:11] LABS: BASE EXCESS ABG -7 mmol/L (-3-3); HCO3 ABG 17 mmol/L (21-28); PCO2 ABG 30 mmHg (35-46); PH ABG 7.37 (7.35-7.45); PO2 ABG 268 mmHg (65-108); SAT O2 ABG 99 % (92-99)
[2017-03-24 01:20] LABS: INFLUENZA A PATIENT NEGATIVE (NEGATIVE); INFLUENZA B PATIENT NEGATIVE (NEGATIVE); OBC FLU VALID
[2017-03-24 01:21] LABS: LACTIC ACID 5.6 mmol/L (0.4-2.0)
[2017-03-24 01:32] LABS: MAGNESIUM 3.1 mg/dL (1.8-2.4)
[2017-03-24 01:32] LABS: LIPASE 351 U/L (73-393)
[2017-03-24] MEDS: INSULIN REGULAR 100 UNIT/ML 10ML VIAL. IV (01:32)
[2017-03-24] MEDS: IV NORMAL SALINE 1000ML BAG 1,000 ML IV ×2 (01:36→04:26)
[2017-03-24] MEDS: DEXTROSE 50% 25 GM / 50ML DISP.SYRIN. IV ×2 (01:36→05:36)
[2017-03-24 01:37] LABS: ALBUMIN 3.3 g/dL (3.4-5.0); ALBUMIN/GLOBULIN RATIO 0.8 (1.0-1.7); ALK PHOS 94 U/L (46-116); ALT (SGPT) 68 U/L (14-59); ANION GAP 13 (6-14); AST (SGOT) 34 U/L (15-37); BLOOD UREA NITROGEN 69 mg/dL (7-20); BUN/CREATININE RATIO 30 (6-20); CALCIUM 9.2 mg/dL (8.5-10.1); CARBON DIOXIDE 21 mmol/L (21-32); CHLORIDE 104 mmol/L (98-107); CREATININE 2.3 mg/dL (0.6-1.0); GFR 24.6; GLUCOSE 156 mg/dL (70-99); SODIUM 138 mmol/L (136-145); TOTAL BILIRUBIN 0.9 mg/dL (0.2-1.0); TOTAL PROTEIN 7.2 g/dL (6.4-8.2)
[2017-03-24] MEDS: CALCIUM GLUCONATE 1,000 MG/10 ML VIAL. IVP (01:37)
[2017-03-24] MEDS: SODIUM BICARB ADULT 8.4% 50 MEQ/50 ML DISP.SYRIN. IV (01:37)
[2017-03-24 01:43] LABS: NT-PRO BNP 23018 pg/mL (0-449)
[2017-03-24 01:53] LABS: ETHANOL < 10 mg/dL (0-10)
[2017-03-24 01:56] LABS: TROPONINI 0.115 ng/mL (0.000-0.055)
[2017-03-24 01:57] LABS: POTASSIUM 7.5 mmol/L (3.5-5.1)
[2017-03-24] MEDS ORDERED: ONDANSETRON PF 4 MG/2 ML VIAL. IV (02:00)
[2017-03-24 02:06] LABS: THYROID STIM HORMONE (TSH) 12.543 uIU/mL (0.358-3.74)
[2017-03-24 02:16] LABS: BILIRUBIN,URINE NEGATIVE (NEG); CLARITY,URINE CLEAR; COLOR,URINE AMBER; GLUCOSE,URINE NEGATIVE (NEG); NITRITE,URINE NEGATIVE (NEG); PH,URINE 5.5; PROTEIN,URINE 100 mg/dL (NEG-TRACE); UROBILINOGEN,URINE 0.2 mg/dL (0.2 mg/dL)
[2017-03-24 02:23] LABS: AMORPHOUS SEDIMENT,UR PRESENT /HPF; BACTERIA,URINE 0 /HPF (0-FEW); BARBITURATES NEG (NEG); BENZODIAZEPINES NEG (NEG); CANNABINOIDS NEG (NEG); COCAINE NEG (NEG); HYALINE CASTS, URINE FEW /HPF; METHADONE NEG (NEG); OPIATES NEG (NEG); PHENCYCLIDINE NEG (NEG); RBC,URINE 0 /HPF (0-2); WBC,URINE OCC /HPF (0-4)
[2017-03-24 02:26] LABS: AMPHETAMINE/METHAMPHETAMINE NEG (NEG); ETHANOL, URINE NEG (NEG)
[2017-03-24 04:23] LABS: TROPONINI 0.082 ng/mL (0.000-0.055)
[2017-03-24 04:27] LABS: POTASSIUM 6.6 mmol/L (3.5-5.1)
[2017-03-24 04:49] LABS: LACTIC ACID 5.9 mmol/L (0.4-2.0)
[2017-03-24] MEDS: INSULIN ASPART 300 UNITS/3 ML INSULN.PEN SQ (05:22)
[2017-03-24 06:26] LABS: POC GLUCOSE 64 mg/dL (70-99)
[2017-03-24 06:43] LABS: POC GLUCOSE 125 mg/dL (70-99)
[2017-03-24] MEDS: METOPROLOL TART IMMED RELEASE 25 MG TABLET. PO ×2 (09:00→21:00)
[2017-03-24] MEDS: DIGOXIN 125 MCG TABLET. PO (09:00)
[2017-03-24] MEDS: FUROSEMIDE 40 MG TABLET. PO (09:00)
[2017-03-24] MEDS: ANASTROZOLE 1 MG TABLET PO (09:00)
[2017-03-24] MEDS: AMINO AC 3%/ELECTROLYTE/GLYCER 1,000 ML IV ×2 (11:43→22:53)
[2017-03-24] MEDS: WARFARIN 6 MG TABLET. PO (16:00)
[2017-03-24 16:15] LABS: MRSA BY PCR Negative (Negative)
[2017-03-24] MEDS: SIMVASTATIN 20 MG TABLET PO (21:00)
[2017-03-25 06:07] LABS: ALBUMIN 2.7 g/dL (3.4-5.0); ALBUMIN/GLOBULIN RATIO 0.8 (1.0-1.7); ALK PHOS 80 U/L (46-116); ALT (SGPT) 50 U/L (14-59); ANION GAP 14 (6-14); AST (SGOT) 26 U/L (15-37); BLOOD UREA NITROGEN 53 mg/dL (7-20); BUN/CREATININE RATIO 38 (6-20); CARBON DIOXIDE 20 mmol/L (21-32); CHLORIDE 109 mmol/L (98-107); CREATININE 1.4 mg/dL (0.6-1.0); GFR 43.7; GLUCOSE 97 mg/dL (70-99); SODIUM 143 mmol/L (136-145); TOTAL BILIRUBIN 1.3 mg/dL (0.2-1.0); TOTAL PROTEIN 5.9 g/dL (6.4-8.2)
[2017-03-25 06:12] LABS: POTASSIUM 6.1 mmol/L (3.5-5.1)
[2017-03-25] MEDS: SODIUM BICARB ADULT 8.4% 50 MEQ/50 ML DISP.SYRIN. IV (06:40)
[2017-03-25] MEDS: DEXTROSE 50% 25 GM / 50ML DISP.SYRIN. IV (06:41)
[2017-03-25 06:43] LABS: BASO % 0 % (0-3); EOS % 0 % (0-3); HEMATOCRIT 44.5 % (36.0-47.0); HEMOGLOBIN 13.6 g/dL (12.0-15.5); LYMPH # 0.3 x10^3/uL (1.0-4.8); LYMPH % 3 % (24-48); MEAN CORPUSCULAR HEMOGLOBIN 29 pg (25-35); MEAN CORPUSCULAR HGB CONC 31 g/dL (31-37); MEAN CORPUSCULAR VOLUME 93 fL (79-100); MONO # 0.5 x10^3/uL (0.0-1.1); MONO % 6 % (0-9); NEUT # 7.5 x10^3uL (1.8-7.7); NEUT % 90 % (31-73); PLATELET COUNT 91 x10^3/uL (140-400); RED BLOOD COUNT 4.76 x10^6/uL (3.50-5.40); RED CELL DISTRIBUTION WIDTH 16.7 % (11.5-14.5); WHITE BLOOD COUNT 8.3 x10^3/uL (4.0-11.0)
[2017-03-25] MEDS: CALCIUM GLUCONATE 1,000 MG/10 ML VIAL. IVP (06:43)
[2017-03-25] MEDS: INSULIN REGULAR 100 UNIT/ML 10ML VIAL. IV (06:43)
[2017-03-25 06:45] LABS: ADD MAN DIFF? YES
[2017-03-25 06:54] LABS: INR 2.4 (0.8-1.1); PROTHROMBIN TIME PATIENT 24.7 SEC (11.7-14.0)
[2017-03-25] MEDS: WARFARIN 6 MG TABLET. PO ×2 (07:39→17:51)
[2017-03-25] MEDS: ANASTROZOLE 1 MG TABLET PO (09:00)
[2017-03-25] MEDS: FUROSEMIDE 40 MG TABLET. PO (09:13)
[2017-03-25] MEDS: METOPROLOL TART IMMED RELEASE 25 MG TABLET. PO ×2 (09:14→22:52)
[2017-03-25] MEDS: DIGOXIN 125 MCG TABLET. PO (09:15)
[2017-03-25 09:48] LABS: % EOS 1 % (0-5); % LYMPHS 2 % (24-48); % MONOS 5 % (0-10); % SEGS 92 % (35-66)
[2017-03-25 09:49] LABS: PLT ESTIMATE DECREASED (ADEQUATE)
[2017-03-25 09:50] LABS: ANISOCYTOSIS PRESENT; POIKILOCYTOSIS PRESENT; TOXIC GRANULATION PRESENT
[2017-03-25 10:47] LABS: LACTIC ACID 3.9 mmol/L (0.4-2.0)
[2017-03-25] MEDS: AMINO AC 3%/ELECTROLYTE/GLYCER 1,000 ML IV (12:15)
[2017-03-25] MEDS: IV DEXTROSE 5 %-0.45 % NACL 1,000 ML IV (15:00)
[2017-03-25] MEDS: ALBUTEROL SULFATE 2.5 MG/3 ML NEBU. NEB (20:50)
[2017-03-25] MEDS: SIMVASTATIN 20 MG TABLET PO (22:51)
[2017-03-25] MEDS: cefTRIAXone IV Push 1 GM VIAL. IVP (22:51)
[2017-03-26] MEDS: ALBUTEROL SULFATE 2.5 MG/3 ML NEBU. NEB ×3 (01:35→19:50)
[2017-03-26] MEDS: IV DEXTROSE 5 %-0.45 % NACL 1,000 ML IV ×2 (03:30)
[2017-03-26 04:48] LABS: ADD MAN DIFF? NO
[2017-03-26 04:57] LABS: BASO % 0 % (0-3); EOS % 0 % (0-3); HEMATOCRIT 42.5 % (36.0-47.0); HEMOGLOBIN 13.4 g/dL (12.0-15.5); LYMPH # 0.2 x10^3/uL (1.0-4.8); LYMPH % 2 % (24-48); MEAN CORPUSCULAR HEMOGLOBIN 29 pg (25-35); MEAN CORPUSCULAR HGB CONC 32 g/dL (31-37); MEAN CORPUSCULAR VOLUME 93 fL (79-100); MONO % 12 % (0-9); NEUT # 7.1 x10^3uL (1.8-7.7); NEUT % 86 % (31-73); PLATELET COUNT 80 x10^3/uL (140-400); RED BLOOD COUNT 4.58 x10^6/uL (3.50-5.40); RED CELL DISTRIBUTION WIDTH 16.2 % (11.5-14.5); WHITE BLOOD COUNT 8.3 x10^3/uL (4.0-11.0)
[2017-03-26 05:37] LABS: ALBUMIN 2.6 g/dL (3.4-5.0); ALBUMIN/GLOBULIN RATIO 0.7 (1.0-1.7); ALK PHOS 76 U/L (46-116); ALT (SGPT) 47 U/L (14-59); ANION GAP 9 (6-14); AST (SGOT) 22 U/L (15-37); BLOOD UREA NITROGEN 43 mg/dL (7-20); BUN/CREATININE RATIO 33 (6-20); CALCIUM 8.4 mg/dL (8.5-10.1); CARBON DIOXIDE 30 mmol/L (21-32); CHLORIDE 105 mmol/L (98-107); CREATININE 1.3 mg/dL (0.6-1.0); GFR 47.6; GLUCOSE 133 mg/dL (70-99); POTASSIUM 4.3 mmol/L (3.5-5.1); SODIUM 144 mmol/L (136-145); TOTAL BILIRUBIN 1.2 mg/dL (0.2-1.0); TOTAL PROTEIN 6.2 g/dL (6.4-8.2)
[2017-03-26] MEDS: ANASTROZOLE 1 MG TABLET PO (09:00)
[2017-03-26] MEDS: DIGOXIN 125 MCG TABLET. PO (09:00)
[2017-03-26] MEDS: METOPROLOL TART IMMED RELEASE 25 MG TABLET. PO ×2 (09:00→22:05)
[2017-03-26] MEDS ORDERED: VANCOMYCIN PER PHARMACY MC (09:15)
[2017-03-26] MEDS: PIPERACILLIN/TAZOBACTAM 3.375 GM in IV NORMAL SALINE 50ML 50 ML IV ×2 (09:30→18:00)
[2017-03-26] MEDS: VANCOMYCIN 1.25 GM in IV NORMAL SALINE 250ML 250 ML IV (09:30)
[2017-03-26] MEDS: FUROSEMIDE 40 MG/4 ML VIAL. IVP (10:38)
[2017-03-26 16:50] LABS: INR 3.1 (0.8-1.1); PROTHROMBIN TIME PATIENT 30.3 SEC (11.7-14.0)
[2017-03-26] MEDS: WARFARIN 6 MG TABLET. PO (18:30)
[2017-03-26] MEDS: LACTOBACILLUS RHAMNOSUS GG 1 CAPSULE. PO (21:00)
[2017-03-26] MEDS: SIMVASTATIN 20 MG TABLET PO (22:05)
[2017-03-26] MEDS: ENOXAPARIN 40 MG/0.4 ML SYRINGE. SQ (22:06)
[2017-03-26 22:21] LABS: C DIFF BY PCR Positive (Negative)
[2017-03-27] MEDS: PIPERACILLIN/TAZOBACTAM 3.375 GM in IV NORMAL SALINE 50ML 50 ML IV ×4 (00:34→17:40)
[2017-03-27] MEDS ORDERED: ACETAMINOPHEN 325 MG TABLET. PO (03:45)
[2017-03-27 05:46] LABS: INR 2.9 (0.8-1.1); PROTHROMBIN TIME PATIENT 28.4 SEC (11.7-14.0)
[2017-03-27 06:08] LABS: ANION GAP 10 (6-14); BLOOD UREA NITROGEN 32 mg/dL (7-20); CALCIUM 8.4 mg/dL (8.5-10.1); CARBON DIOXIDE 28 mmol/L (21-32); CHLORIDE 106 mmol/L (98-107); GFR 64.4; GLUCOSE 112 mg/dL (70-99); POTASSIUM 3.7 mmol/L (3.5-5.1); SODIUM 144 mmol/L (136-145)
[2017-03-27 08:33] LABS: LACTIC ACID 2.3 mmol/L (0.4-2.0)
[2017-03-27] MEDS: METOPROLOL TART IMMED RELEASE 25 MG TABLET. PO ×2 (08:59→21:52)
[2017-03-27] MEDS: DIGOXIN 125 MCG TABLET. PO (09:00)
[2017-03-27] MEDS: VANCOMYCIN 250 MG/5 ML ORAL SOLUTION. PO (09:00)
[2017-03-27] MEDS: LACTOBACILLUS RHAMNOSUS GG 1 CAPSULE. PO ×2 (09:01→21:51)
[2017-03-27] MEDS: ANASTROZOLE 1 MG TABLET PO (09:01)
[2017-03-27] MEDS: FUROSEMIDE 20 MG/2 ML VIAL. IVP (09:02)
[2017-03-27] MEDS: IV DEXTROSE 5 %-0.45 % NACL 1,000 ML IV ×2 (11:35→11:40)
[2017-03-27] MEDS: FUROSEMIDE 40 MG/4 ML VIAL. IVP (11:40)
[2017-03-27] MEDS ORDERED: VANCOMYCIN 250 MG/5 ML ORAL SOLUTION. PO (13:00)
[2017-03-27] MEDS: VANCOMYCIN 125 MG/2.5 ML ORAL SOLUTION. PO ×3 (14:08→21:51)
[2017-03-27] MEDS ORDERED: ENOXAPARIN 40 MG/0.4 ML SYRINGE. SQ (21:00)
[2017-03-27] MEDS: SIMVASTATIN 20 MG TABLET PO (21:52)
[2017-03-28] MEDS: PIPERACILLIN/TAZOBACTAM 3.375 GM in IV NORMAL SALINE 50ML 50 ML IV ×4 (00:27→18:00)
[2017-03-28] MEDS: IV DEXTROSE 5 %-0.45 % NACL 1,000 ML IV (06:51)
[2017-03-28] MEDS: DIGOXIN 125 MCG TABLET. PO (09:00)
[2017-03-28] MEDS: LACTOBACILLUS RHAMNOSUS GG 1 CAPSULE. PO (09:00)
[2017-03-28] MEDS: FUROSEMIDE 20 MG/2 ML VIAL. IVP (09:00)
[2017-03-28] MEDS: ANASTROZOLE 1 MG TABLET PO (09:00)
[2017-03-28] MEDS: METOPROLOL TART IMMED RELEASE 25 MG TABLET. PO (09:00)
[2017-03-28 09:20] LABS: INR 2.8 (0.8-1.1); PROTHROMBIN TIME PATIENT 27.8 SEC (11.7-14.0)
[2017-03-28] MEDS: VANCOMYCIN 125 MG/2.5 ML ORAL SOLUTION. PO ×3 (09:33→17:00)
[2017-03-28] MEDS ORDERED: MORPHINE SULFATE 20 MG/ML CONC SOLUTION. SL (11:00)
[2017-03-28] MEDS ORDERED: LORazepam INTENSOL 2 MG/ML ORAL.CONC SL (11:00)
[2017-03-28] MEDS: ALBUTEROL SULFATE 2.5 MG/3 ML NEBU. NEB (11:36)
[2017-03-29] MEDS ORDERED: WARFARIN 3 MG TABLET. PO (16:00)
== END 2017-03-28 19:00 | disposition hospice, inpatient (51) | DRG 682 ==
LOC: 4 NORTH 02:30 → ER 00:25 → 1 WEST ICU 01:10 → 4 NORTH 18:36
PROVIDERS: Internal Medicine
DX: N17.0 Acute kidney failure with tubular necrosis (principal); J96.91 Respiratory failure, unspecified with hypoxia; G93.41 Metabolic encephalopathy; I13.2 Hypertensive heart and chronic kidney disease with heart failure and with stage 5 chronic kidney disease, or end stage renal disease; A04.72 Enterocolitis due to Clostridium difficile, not specified as recurrent; E44.0 Moderate protein-calorie malnutrition; E87.2 Acidosis; I48.91 Unspecified atrial fibrillation; E87.5 Hyperkalemia; I82.621 Acute embolism and thrombosis of deep veins of right upper extremity; I50.43 Acute on chronic combined systolic (congestive) and diastolic (congestive) heart failure; I42.9 Cardiomyopathy, unspecified; N18.6 End stage renal disease; E78.5 Hyperlipidemia, unspecified; E86.0 Dehydration; F03.90 Unspecified dementia, unspecified severity, without behavioral disturbance, psychotic disturbance, mood disturbance, and anxiety; I25.10 Atherosclerotic heart disease of native coronary artery without angina pectoris; J44.9 Chronic obstructive pulmonary disease, unspecified; Z51.5 Encounter for palliative care; Z66 Do not resuscitate; Z79.01 Long term (current) use of anticoagulants; Z79.899 Other long term (current) drug therapy; Z82.49 Family history of ischemic heart disease and other diseases of the circulatory system; Z85.3 Personal history of malignant neoplasm of breast; Z86.711 Personal history of pulmonary embolism; Z90.710 Acquired absence of both cervix and uterus; Z95.0 Presence of cardiac pacemaker; Z99.2 Dependence on renal dialysis; Z87.01 Personal history of pneumonia (recurrent); Z68.21 Body mass index [BMI] 21.0-21.9, adult; Z90.11 Acquired absence of right breast and nipple
CPT/HCPCS: 36415; 36600; 70450; 71045; 80048; 80053; 80307; 81001; 82805; 82962; 83605; 83690; 83735; 83880; 84132; 84443; 84484; 85007; 85025; 85610; 85730; 87040; 87086; 87324; 87641; 87804; 87804-59; 92610-GN; 93005; 93971; 94640; 94760; 96361; 96374; 96375; 99291; 99291-25; G0480; J0610; J0696; J1650; J1815; J1940; J2060; J2543; J3370; J7030; J7042; J7050; J7613